=== PATIENT | female | born 1960 | race Caucasian/White ===

== ENCOUNTER 2021-04-05 14:37 | Outpatient (CLI) | payer BC | END 2021-04-05 14:38 | disposition critical access hospital (66) | LOC: EMS 14:37 | DX: R53.1 Weakness (principal); R41.0 Disorientation, unspecified; R17 Unspecified jaundice; W01.0XXA Fall on same level from slipping, tripping and stumbling without subsequent striking against object, initial encounter; Y92.008 Other place in unspecified non-institutional (private) residence as the place of occurrence of the external cause | CPT/HCPCS: A0425; A0427 ==

== ENCOUNTER 2021-04-05 15:12 | Inpatient (IN) | payer BC ==
[2021-04-05] MEDS ORDERED: THIAMINE INJ 100 MG in SODIUM CHLORIDE 0.9% 50 ML IV STA (15:20)
--- NOTE | 2021-04-05 15:22 | ED Physician Documentation ---
PD HPI ABD PAIN - Stated complaint Stated Complaint: GLF - History obtained from History obtained from: Patient, EMS - Additional information Additional information: 61-year-old woman presents by ambulance from home. Reportedly tripped and fell and then was too weak to get herself up and was found by a neighbor. She states she just tripped and did not lose consciousness or get injured. She states that she quit drinking a month and a half ago and was not a heavy drinker, that said EMS confides that there was alcohol "all over the house." Also birds living in the house. There is also feces on the floor, rotting food all over. Patient denies any medical history or history of liver issues although she does appear jaundiced. Review of Systems Ten Systems: 10 systems reviewed and negative Constitutional: denies: Fever, Chills Eyes: reports: Reviewed and negative Ears: reports: Reviewed and negative Nose: reports: Reviewed and negative Throat: reports: Reviewed and negative Cardiac: reports: Reviewed and negative Respiratory: reports: Reviewed and negative PD PAST MEDICAL HISTORY - Allergies Allergies/Adverse Reactions: Allergies Allergy/AdvReac Type Severity Reaction Status Date / Time No Known Drug Allergies Allergy Verified 04/05/21 15:29 PD ED PE NORMAL - Vitals Vital signs reviewed: Yes - General General: Other (Slow to answer questions, does not know the date, poor historian for recent events. Does not smell of alcohol per se.) - HEENT HEENT: PERRL, Other (Jaundiced) - Neck Neck: Supple, no meningeal sign, No bony TTP - Cardiac Cardiac: RRR, No murmur - Respiratory Respiratory: No respiratory distress, Clear bilaterally - Abdomen Abdomen: Other (Nontender but slightly distended with positive fluid wave) - Rectal Rectal: Other (Rectal exam done with Mary RN: Dark stool but not melanotic per se. Sent for guaiac.) - Derm Derm: Normal color, Warm and dry, Other (Bruises basically all over, knees, back, sacrum, abdominal wall) - Extremities Extremities: No deformity, No tenderness to palpate, Normal ROM s pain, Other (1-2+ pitting pedal edema of both extremities, symmetric. Some nontender b ruising over the anterior part of both knees.) Results - Vitals Vitals: Vital Signs - 24 hr 04/05/21 04/05/21 15:22 17:09 Temperature 36.6 C Heart Rate 89 90 Respiratory 14 16 Rate Blood Pressure 91/51 L 95/83 H O2 Saturation 100 100 Oxygen O2 Source Room air - Labs Labs: Microbiology 04/05/21 15:45 Occult Blood - Final Stool Laboratory Tests 04/05/21 04/05/21 04/05/21 15:30 15:30 15:30 WBC 26.5 H RBC 1.95 L Hgb 6.7 L* Hct 19.8 L* MCV 101.5 H MCH 34.4 H MCHC 33.8 RDW 17.1 H Plt Count 134 MPV 10.6 Neut # (Auto) Not Reportable Lymph # (Auto) Not Reportable Pinal # (Auto) Not Reportable Eos # (Auto) Not Reportable Baso # (Auto) Not Reportable Absolute Nucleated RBC Not Reportable Total Counted 100 Band Neuts % (Manual) 2 Abnorm Lymph % (Manual) 0 Nucleated RBC % Not Reportable Neutrophils # (Manual) 21.7 H Lymphocytes # (Manual) 4.0 H Monocytes # (Manual) 0.8 Eosinophils # (Manual) 0.0 Basophils # (Manual) 0.0 Differential Comment MANUAL DIFFERENTIAL WBC Morphology NORMAL APPEARANCE Platelet Estimate NORMAL (130-450,000) Platelet Morphology NORMAL APPEARANCE RBC Morph Micro Appear NORMAL APPEARANCE PT 21.5 H INR 1.9 H Sodium 128 L Potassium 3.1 L Chloride 87 L Carbon Dioxide 28 Anion Gap 13.0 BUN 29 H Creatinine 1.6 H Estimated GFR (MDRD) 33 L Glucose 88 Lactic Acid Calcium 8.9 Magnesium 2.1 Total Bilirubin 11.5 H AST 163 H ALT 44 Alkaline Phosphatase 212 H Ammonia Total Creatine Kinase 156 Total Protein 5.9 L Albumin 2.3 L Globulin 3.6 Albumin/Globulin Ratio 0.6 L Lipase 19 L Ethyl Alcohol < 5.0 Blood Type Blood Type Recheck Antibody Screen Crossmatch IS Only 04/05/21 04/05/21 04/05/21 15:30 15:30 17:01 WBC RBC Hgb Hct MCV MCH MCHC RDW Plt Count MPV Neut # (Auto) Lymph # (Auto) Pinal # (Auto) Eos # (Auto) Baso # (Auto) Absolute Nucleated RBC Total Counted Band Neuts % (Manual) Abnorm Lymph % (Manual) Nucleated RBC % Neutrophils # (Manual) Lymphocytes # (Manual) Monocytes # (Manual) Eosinophils # (Manual) Basophils # (Manual) Differential Comment WBC Morphology Platelet Estimate Platelet Morphology RBC Morph Micro Appear PT INR Sodium Potassium Chloride Carbon Dioxide Anion Gap BUN Creatinine Estimated GFR (MDRD) Glucose Lactic Acid Calcium Magnesium Total Bilirubin AST ALT Alkaline Phosphatase Ammonia 45.2 H Total Creatine Kinase Total Protein Albumin Globulin Albumin/Globulin Ratio Lipase Ethyl Alcohol Blood Type O POSITIVE Blood Type Recheck O POSITIVE Antibody Screen NEGATIVE Crossmatch IS Only See Detail 04/05/21 17:01 WBC RBC Hgb Hct MCV MCH MCHC RDW Plt Count MPV Neut # (Auto) Lymph # (Auto) Pinal # (Auto) Eos # (Auto) Baso # (Auto) Absolute Nucleated RBC Total Counted Band Neuts % (Manual) Abnorm Lymph % (Manual) Nucleated RBC % Neutrophils # (Manual) Lymphocytes # (Manual) Monocytes # (Manual) Eosinophils # (Manual) Basophils # (Manual) Differential Comment WBC Morphology Platelet Estimate Platelet Morphology RBC Morph Micro Appear PT INR Sodium Potassium Chloride Carbon Dioxide Anion Gap BUN Creatinine Estimated GFR (MDRD) Glucose Lactic Acid 1.8 Calcium Magnesium Total Bilirubin AST ALT Alkaline Phosphatase Ammonia Total Creatine Kinase Total Protein Albumin Globulin Albumin/Globulin Ratio Lipase Ethyl Alcohol Blood Type Blood Type Recheck Antibody Screen Crossmatch IS Only - Rads (name of study) CT [facility] Radiology: EMP read contemporaneously (CT of the head, cervical spine, chest abdomen pelvis is notable for degenerative and age-related changes, hiatal hernia with esophageal wall thickening, coronary artery calcification, small right-sided pleural effusion, ascites and body edema, irregular liver and prominent gallbladder) PD MEDICAL DECISION MAKING - ED course ED course: 61-year-old woman presents from home which is reported to be in disastrous shape after having fallen and generally weak and could not get up. She appears ill, she is jaundiced. She is profoundly anemic of unclear acuity. She also has elevated white blood cell counts but no focus of infection seen nor lactic acidosis. She is thankfully and surprisingly guaiac negative. She is modestly encephalopathic here. Presume this is from alcohol noting the dockworker report, but there is no alcohol on board right now. Ammonia is only modestly elevated. Meld score is 31 points giving her an estimated mortality in 3 months of 52.6%. Discriminant factor is 55.2 points suggesting the need for glucocorticoid therapy. And prednisolone is started. Call to the hospitalist for admission at 5:45 PM. - Critical Care Time(min): 40 Time Includes: Direct patient care, Review records, Reassess patient, Document care, Coordinate care, Medical consult Departure - Departure Disposition: 66 [facility] DC/Xfer Clinical Impression: Coagulopathy, Renal insufficiency, Encephalopathy Anemia Qualifiers: Anemia type: unspecified type Qualified Code(s): D64.9 - Anemia, unspecified Cirrhosis Qualifiers: Hepatic cirrhosis type: unspecified hepatic cirrhosis Ascites presence: with ascites Qualified Code(s): K74.60 - Unspecified cirrhosis of liver Fall Qualifiers: Encounter type: initial encounter Qualified Code(s): W19.XXXA - Unspecified fall, initial encounter Abdominal wall contusion Qualifiers: Encounter type: initial encounter Qualified Code(s): S30.1XXA - Contusion of abdominal wall, initial encounter Chest wall contusion Qualifiers: Encounter type: initial encounter Laterality: unspecified laterality Qualified Code(s): S20.219A - Contusion of unspecified front wall of thorax, initial encounter Ascites Qualifiers: Ascites type: due to alcoholic cirrhosis Qualified Code(s): K70.31 - Alcoholic cirrhosis of liver with ascites Condition: Serious
[2021-04-05 15:37] LABS: BASOPHILS % (AUTO) 0.3 %; EOSINOPHILS % (AUTO) 1.1 %; LYMPHOCYTES % (AUTO) 7.5 %; MEAN CORPUSCULAR HEMOGLOBIN 34.4 pg (27.0-31.0); MEAN CORPUSCULAR HGB CONC 33.8 g/dL (32.0-36.0); MEAN CORPUSCULAR VOLUME 101.5 fL (81.0-99.0); MEAN PLATELET VOLUME 10.6 fL (7.9-10.8); MONOCYTES % (AUTO) 6.9 %; NEUTROPHILS % (AUTO) 83.5 %; PLT - PLATELET COUNT 134 10^3/uL (130-450); RED BLOOD COUNT 1.95 10^6/uL (4.20-5.40); RED CELL DISTRIBUTION WIDTH 17.1 % (12.0-15.0); WHITE BLOOD COUNT 26.5 x10^3/uL (4.8-10.8)
[2021-04-05 15:42] LABS: HCT - HEMATOCRIT 19.8 % (37.0-47.0); HGB - HEMOGLOBIN 6.7 g/dL (12.0-16.0); INR 1.9 (0.8-1.2); PT - PROTHROMBIN TIME 21.5 secs (9.9-12.6)
[2021-04-05 15:43] LABS: ABNORMAL LYMPHS % (MANUAL) 0 %
[2021-04-05 15:55] LABS: ALBUMIN 2.3 g/dL (3.2-5.5); ALBUMIN/GLOBULIN RATIO 0.6 (1.0-2.2); ALKALINE PHOSPHATASE 212 IU/L (42-121); ALT ALANINE AMINOTRANSFERASE 44 IU/L (10-60); AST ASPARTATE AMINOTRANSFERASE 163 IU/L (10-42); BILIRUBIN,TOTAL 11.5 mg/dL (0.2-1.0); BUN - BLOOD UREA NITROGEN 29 mg/dL (6-20); CALCIUM 8.9 mg/dL (8.5-10.3); CARBON DIOXIDE - CO2 28 mmol/L (21-32); CHLORIDE 87 mmol/L (101-111); CK- CREATINE KINASE 156 IU/L (22-269); CREATININE 1.6 mg/dL (0.4-1.0); ETOH - ETHANOL < 5.0 mg/dL; GFR - MDRD 33 (>89); GLUCOSE 88 mg/dL (70-100); LIPASE 19 U/L (22-51); MAGNESIUM 2.1 mg/dL (1.7-2.8); POTASSIUM 3.1 mmol/L (3.5-5.0); SODIUM 128 mmol/L (135-145); TOTAL PROTEIN 5.9 g/dL (6.7-8.2)
[2021-04-05] MEDS ORDERED: IOPAMIDOL-300 100 ML VIAL ONE (16:12)
[2021-04-05] MEDS ORDERED: POTASSIUM CHLOR 10 MEQ/100 ML 10 MEQ/100 ML BAG IV STA (16:15)
[2021-04-05 16:24] LABS: BAND NEUTROPHILS % (MANUAL) 2 %; DIFFERENTIAL COMMENT MANUAL DIFFERENTIAL; LYMPHOCYTES % (MANUAL) 15 %; MONOCYTES # (MANUAL) 0.8 10^3/uL (0.0-1.0); NEUTROPHILS # (MANUAL) 21.7 10^3/uL (1.5-6.6); PLATELET ESTIMATE, MANUAL NORMAL (130-450,000) (NORMAL); PLATELET MORPHOLOGY NORMAL APPEARANCE (NORMAL); RBC MORPHOLOGY (MULTIPLE) NORMAL APPEARANCE (NORMAL); WBC MORPHOLOGY (MULTIPLE) NORMAL APPEARANCE (NORMAL)
--- NOTE | 2021-04-05 17:24 | CT Report ---
PROCEDURE: HEAD WO INDICATIONS: poss head inj TECHNIQUE: Noncontrast 4.5 mm thick angled axial sections acquired from the foramen magnum to the vertex. For r adiation dose reduction, the following was used: automated exposure control, adjustment of mA and/or kV according to patient size. COMPARISON: Correlation is made with the accompanying CT examinations, 04/05/2021. FINDINGS: Image quality: There is streak artifact seen through the skull base. CSF spaces: Basal cisterns are patent. No extra-axial fluid collections. Ventricles are normal in size and shape. Brain: No midline shift. No intracranial masses or hemorrhage. Newberry-white matter interface is norm al. Skull and face: Calvarium and visualized facial bones are intact, without suspicious lesions. Hyper ostosis frontalis is incidentally noted, which is not frankly abnormal for a female patient of this a ge. Sinuses: Visualized sinuses and mastoids are clear. IMPRESSION: No significant intracranial abnormality is seen. No intracranial hemorrhage is seen. Reviewed by: Edward Holguin MD on 04/05/2021 4:22 PM CHRIS Approved by: Edward Holguin MD on 04/05/2021 4:22 PM CHRIS Station ID: [id number]
--- NOTE | 2021-04-05 17:26 | CT Report ---
PROCEDURE: CERVICAL SPINE WO INDICATIONS: poss head inj TECHNIQUE: Noncontrast 3 mm thick sections acquired from the skull base to the T4 level. Sagittal and coronal r eformats were then constructed. For radiation dose reduction, the following was used: automated exp osure control, adjustment of mA and/or kV according to patient size. COMPARISON: Correlation is made with the accompanying CT examinations, 04/05/2021. FINDINGS: Image quality: Excellent. Bones: No fractures or dislocations. Visualized superior ribs are intact. There is moderate disc space narrowing seen at C5-C6 and C6-C7, with associated endplate irregularity and sclerosis. Posteriorly directed endplate osteophytes are seen. Partially bridging anterior osteo phytes are seen C5-C7. Soft tissues: Prevertebral soft tissues are normal in thickness. No paravertebral hematomas. No ap ical pneumothoraces. Atherosclerotic calcification is seen. IMPRESSION: Negative for cervical spine fracture. Focal lower cervical spine degenerative changes are seen. Atherosclerotic calcification is seen. Reviewed by: Edward Holguin MD on 04/05/2021 4:25 PM AKRICKY Approved by: Edward Holguin MD on 04/05/2021 4:25 PM AKRICKY Station ID: [id number]
--- NOTE | 2021-04-05 17:31 | CT Report ---
PROCEDURE: Abdomen/Pelvis W INDICATIONS: IV only, elevated liver enzymes CONTRAST: IV CONTRAST: Isovue 300 ml: 80 PO CONTRAST: *NO PO CONTRAST TECHNIQUE: After the administration of IV contrast, 5 mm thick sections acquired from the diaphragms to the symp hysis. A limited dose of 80 cc of contrast was used, secondary to the patient's decreased glomerular filtration rate. 5 mm thick coronal and sagittal reformats were acquired. For radiation dose reducti on, the following was used: automated exposure control, adjustment of mA and/or kV according to magalie ent size. COMPARISON: Correlation is made with the company CT examinations, 04/05/2021. FINDINGS: Image quality: Excellent. ABDOMEN: Lung bases: There is a small right-sided pleural effusion. Overlying mild atelectasis can be seen. He art size is normal. There is a mild to moderate hiatal hernia seen. Solid organs: Patchy low density can be seen within the liver, which is attributed to fatty infiltrat ion. No focal liver lesions are seen. The spleen demonstrates normal size. Gallbladder is prominent i n size, without focal pathology. Biliary system is non dilated. Pancreas enhances normally. No adr enal nodules. Kidneys demonstrate normal size and enhancement, without hydronephrosis. Peritoneum and bowel: Bowel loops demonstrate normal wall thickness and caliber. No free air. A mo derate amount of ascites is seen. Diverticulosis can be seen, without mariama findings of active divert iculitis. Nodes and vessels: No retroperitoneal or mesenteric adenopathy by size criteria. Aorta and inferior vena cava are normal in size. Miscellaneous: A mild umbilical hernia seen, which contains fluid. Generalized body wall edema is see n. PELVIS: Genitourinary: Bladder wall thickness is normal. The uterus demonstrates an unremarkable appearance for age. No adnexal masses are seen. Miscellaneous: No inguinal hernias or adenopathy. Bones: No suspicious bony lesions. No vertebral body compression fractures. Mild levoconvex scolio tic curvature is seen. Degenerative changes are seen throughout, which are worst at L3-L4 and L4-L5. IMPRESSION: Small right-sided pleural effusion. There is moderate ascites. Generalized body wall edema can also be seen. Irregular liver with low-density. Fatty infiltration is suspected, although differential diagnosis fo r this appearance would also include hepatitis. Prominent gallbladder noted. Incidental note is made of: Bphyl-ga-bhyyrvvr hiatal hernia Diverticulosis is seen, yet without findings of active diverticulitis. Levoconvex scoliotic curvature Focal lower lumbar spine degenerative change. Reviewed by: Edward Holguin MD on 04/05/2021 4:30 PM AKDT Approved by: Edward Holguin MD on 04/05/2021 4:30 PM AKDT Station ID: [id number]
--- NOTE | 2021-04-05 17:38 | CT Report ---
PROCEDURE: CHEST W INDICATIONS: Malignancy workup CONTRAST: IV CONTRAST: Isovue 300 ml: 80 PO CONTRAST: *NO PO CONTRAST TECHNIQUE: After the administration of intravenous contrast, images were acquired from the pulmonary apices to t he posterior costophrenic angles. Multiplanar MIP reformats were acquired. For radiation dose reduc tion, the following was used: automated exposure control, adjustment of mA and/or kV according to pa tient size. COMPARISON: Correlation is made with the accompanying CT examinations, 04/15/2021 FINDINGS: Image quality: Excellent. Lungs and pleura: There is a small right-sided pleural effusion. Central and peripheral airways are p atent and normal in caliber. Mediastinum: Heart size is normal. At least moderate coronary calcification. No pericardial effusion . No mediastinal or hilar adenopathy by size criteria. Thoracic aorta and central pulmonary arterie s are normal in size. The distal esophagus appears thickened and irregular. There is a small to mode rate hiatal hernia seen. Fluid is seen within the distal esophagus. Bones and chest wall: No suspicious bony lesions. No vertebral body compression fractures. No axil rohit or supraclavicular adenopathy by size criteria. The thyroid is normal in size and there are no incidental findings.. Abdomen: The liver demonstrates an irregular, low-density appearance. Moderate ascites is seen within the upper abdomen. Generalized prominence of the adrenal glands can be seen, without focal adrenal n odules. The visualized portions of the upper abdominal structures are otherwise within normal limits. IMPRESSION: There is a small right-sided pleural effusion, with overlying atelectasis. There is a small to moderate hiatal hernia seen, with thickening of the distal esophageal wall and fl uid within the esophagus. Although this may space secondary to reflux, please consider esophageal mal ignancy. Low density seen of the liver. Moderate ascites. No mariama masses are detected. No enlarged mediastinal lymph nodes are seen. Incidental note is made of: At least moderate coronary artery calcification Reviewed by: Edward Holguin MD on 04/05/2021 4:36 PM AKDT Approved by: Edward Holguin MD on 04/05/2021 4:36 PM AKDT Station ID: [id number]
[2021-04-05] MEDS ORDERED: PrednisoLONE 15 MG/5 ML SYRUP SYR PO STA (17:46)
[2021-04-05] MEDS ORDERED: LORazepam 2 MG/ML VIAL IVP PRN (18:24)
[2021-04-05 20:57] LABS: B. PARAPERTUSSIS- RESP PCR PAN NOT DETECTED; B. PERTUSSIS- RESP PCR PANEL NOT DETECTED; C. PNEUMONIAE- RESP PCR PANEL NOT DETECTED; CORONAVIRUS 229E-RESP PCR NOT DETECTED; CORONAVIRUS HKU1-RESP PCR NOT DETECTED; CORONAVIRUS NL63-RESP PCR NOT DETECTED; CORONAVIRUS OC43-RESP PCR NOT DETECTED; HUMAN METAPNEUMOVIRUS NOT DETECTED; INFLUENZA A- RESP PCR PANEL NOT DETECTED; INFLUENZA B - RESP PCR PANEL NOT DETECTED; M. PNEUMONIAE- RESP PCR PANEL NOT DETECTED; PARAINFLUENZA VIRUS 1 NOT DETECTED; PARAINFLUENZA VIRUS 2 NOT DETECTED; PARAINFLUENZA VIRUS 3 NOT DETECTED; PARAINFLUENZA VIRUS 4 NOT DETECTED; RHINOVIRUS/ENTEROVIRUS NOT DETECTED; RSV- RESP PCR PANEL NOT DETECTED; SARS-CoV-2 -RESP PCR PANEL NOT DETECTED
[2021-04-05] MEDS ORDERED: IOPAMIDOL-300 100 ML VIAL IVP ONE (21:34)
--- NOTE | 2021-04-05 21:49 | HISTORY & PHYSICAL EXAMINATION ---
Chief Complaint - Chief Complaint Chief Complaint: found down in yard History of Present Illness - Admitted From Admitted From:: home via EMS - History Obtained From Records Reviewed: [facility] History obtained from: patient Exam Limitations: slow speech and thought process - History of Present Illness HPI Comment/Other: 61-year-old female who was brought in by ambulance because she was found down in her driveway by her real estate economist. The patient tells me that she does not have any major medical illnesses. She does not have high blood pressure, diabetes, lung disease or kidney disease. She states that she only drinks 2 drinks a day and stopped drinking about 2 months ago because "she wanted to get healthy". She has no history of alcoholic liver disease, withdrawal, neuropathy, or ataxia. She firmly states that she was in her normal state of health. Feeling good. No antecedent illness. No changes in appetite. She was in her yard but cannot remember why she was there and tripped and fell in the pea gravel. There was no loss of consciousness. She could not get up. When I asked her what prohibited her from getting up she says "I do not know". She lay there until her real estate economist found her. EMS was called. EMS describes the house as full of empty alcohol bottles everywhere. Birds are living in the house and there is bird feces everywhere. There is human feces on the floor. There is rotting food all over the house. The patient states that she is just really preoccupied with work. 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 She used to live in [place] in [place] and left [place] when all of the protestors and homeless became unsafe. She moved to [facility] "a couple of months ago" but recently bought a condo to go back and forth between [facility] and [place]. On review of systems she denies headache, change in vision. Denies cough, chest pain, shortness of breath. Denies edema. Denies changes in habit. Denies bloody emesis, black emesis. She denies change in bowel habits, denies hematoch ezia or bloody stool. She denies any weight changes. She denies urgency, frequency, hematuria. She denies any chronic pain syndrome. Denies arthritis. She has no skin skin lesions that are new. She denies polyuria, polydipsia, polyphagia. She is not depressed, denies suicidal ideation or hallucinations. She has no history of seizures, syncope, memory loss. All of this is a mystery to her and she doesn't understand how this could be happening since "I was healthy without any problems" up until today. In the emergency room temperature was 36.6. Heart rate 89. Blood pressure 91/51. Respirations 14 and 100% on room air. She had psychomotor slowing. Did not know the date. Poor historian. Did not smell of alcohol. Nontender abdomen but distended with positive fluid wave. Rectal exam had dark stool but was not melanotic. Fecal occult blood positive. Bruises over her body and including the knees, back, sacrum, abdominal wall. 2+ pitting edema both extremities. Nontender bruising over the anterior part of both knees. Sodium 128. Potassium 3.1. BUN 29, creatinine 1.6. Total bili 11.5. AST 163. ALT 44. Alk phos 212. INR 1.9. Ammonia 45.2. White cell count 26.5. Hemoglobin 6.7. Platelets 134. History - Past Medical History Cardiovascular: reports: None Respiratory: reports: Pneumonia Neuro: reports: None Endocrine/Autoimmune: reports: None GI: reports: Hepatitis (she doesn't remember at this time), Cirrhosis, Other OPERATING ROOM REGISTERED NURSE: reports: Other () : reports: None HEENT: reports: None Psych: reports: None Musculoskeletal: reports: None Derm: reports: Other MRSA Hx?: No Other Past Medical History: glasses at home - Past Surgical History General: reports: Colonoscopy Ortho: reports: Arthroscopic surgery (of knee) - Family & Social History Family History Comment/Other: Mom is alive at 87 and regarded as healthy. Lives in an assisted living facility in [facility]. Dad age 80 of complications of Parkinson's. She is 1 of 5 children. Her siblings are all healthy as far she knows. No cancer, heart attack, stroke, diabetes, high blood pressure, thyroid disease or alcoholism. No children Living arrangement: At home Living Situation: Alone Social History Notes: Born and raised in [place]. 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 Never . Lives alone. Never smoked. Denies any recreational substance abuse history. Denies alcohol abuse history. States that she only drinks 2 drinks of beer a day at most. Her power of deputy attorney general is her brother Pedro Cooley or a nephew named Silvio Lozoya. She does not want us to contact them and as such would prefer not to give us their contact information. Meds/Allgy - Allergies Allergies/Adverse Reactions: Allergies Allergy/AdvReac Type Severity Reaction Status Date / Time No Known Drug Allergies Allergy Verified 04/05/21 15:29 Review of Systems - All Other Systems All Other Systems: reports: Reviewed and negative (All review of systems done and in history of present illness) Prior Level of Functionality: Drive herself is completely independent without any use of durable medical equipment. Drives a car. She cannot explain why her house is so disheveled. Why there is human and bird feces everywhere. The most she can offer is that she is just been so preoccupied with work she just has been taking care of anything. Exam - Vital Signs Reviewed Vital Signs: Yes Vital Signs: Vital Signs x48h Temp Pulse Pulse Resp BP BP Pulse Ox 04/05/21 20:46 36.3 C L 91 16 87/47 L 99 04/05/21 20:15 36.3 C L 91 16 87/49 L 04/05/21 19:54 36.2 C L 92 18 89/44 L 04/05/21 19:19 36.2 C L 91 19 93/57 L 97 04/05/21 17:09 90 16 95/83 H 100 04/05/21 15:22 36.6 C 89 14 91/51 L 100 - Physical Exam General Appearance: positive: No acute distress, Alert, Other (Slow speaking, and moving 61-year-old female with jaundice, hirsutism, and looks very fatigued) Eyes Bilateral: positive: PERRL, EOMI ENT: positive: Dry mucous membranes (cracked dry lips), Other (hirsute. dried dirt? around nares and on cheeks and lips) Neck: positive: No JVD, Lymphadenopathy (R), Lymphadenopathy (L). negative: Stiff neck Respiratory: positive: No respiratory distress, Other (shallow, slow, unlabored respiration). negative: Wheezes, Rales, Rhonchi Cardiovascular: positive: Regular rate & rhythm. negative: Gallop/S4, Friction rub Peripheral Pulses: positive: 1+ Abdomen: positive: Tenderness (mild over upper quadrants), Abnml bowel sounds (hypoactive), Other (distension and fluid wave). negative: Guarding, Rebound Skin: positive: Warm, Dry, Other (jaundice) Extremities: positive: Full ROM, Pedal edema Neurologic/Psychiatric: positive: Oriented x3, CN's nml (2-12), Sensation nml, Weakness (generalized and unable to sit up on her own, or to stand). negative: Motor nml (psychomotor slowing) Conclusion/Plan - Problem List (1) Encephalopathy Conclusion/Plan: She appears to have hepatic encephalopathy. Moderately elevated ammonia level. She does not have asterixis. Has psychomotor slowing. In her history, all of this is new. Acute. Never been present before. EMS description of her home l greg suggest that she may have problems with alcohol abuse and that there is empty liquor bottles throughout the house. The house is also poorly kept up, with bird feces and human feces. Rotting food. Dirty close. Plan: Inpatient admission Work-up of causes of encephalopathy Adult Protective Services referral. I did share with her that we will make a referral. That it will be up to her, her family, and Adult Protective Services to determine the amount of self neglect, if any (2) Liver failure without hepatic coma Conclusion/Plan: At this time the presumption is that of alcoholic liver disease due to the history provided by EMS. But the patient is firm and stating that she does not have an alcohol problem. As such I explained to her that we will be working up the causes of liver failure and cirrhosis. Advance care planning conversation held. She would like all measures performed such as CPR, intubation, cardioversion if needed. She does not want us to notify power of deputy attorney general at this time. And she will let me know her primary care provider is in the next few minutes when she can find them. Qualifiers: Liver failure chronicity: chronic Qualified Code(s): K72.10 - Chronic hepa tic failure without coma (3) Cirrhosis Conclusion/Plan: She denies alcohol abuse. As such at this time final diagnosis and because still needs to be worked up. I have explained to her that we are seeing significant illness. That she has esophageal varices suggested on CT by distal esophageal thickening. She denies that there is been any hematochezia or dark school or vomiting of blood. Plan Acute hepatitis panel Alpha-fetoprotein, anti-Lane antibodies, anti-Ro antibodies, ceruloplasmin, ferritin, EMPERATRIZ Ultrasound of liver When she is discharged she should follow-up with her primary care provider. Right now she cannot remember the name and I have giving her about 15 minutes for her to get me that name. That primary care provider will need to refer her to hepatology service. Meld score is 31 points. Estimated mortality 52.6% in 3 months. Discriminant factor is 55.2 and she was given steroids and those will be continued. All of this was explained to the patient. Qualifiers: Hepatic cirrhosis type: unspecified hepatic cirrhosis Ascites presence: with ascites Qualified Code(s): K74.60 - Unspecified cirrhosis of liver; R18.8 - Other ascites (4) Anemia Conclusion/Plan: Requiring blood transfusion. Plan: Banana bag Transfused 2 units I have asked her to get an EGD in the outpatient setting.We would be looking for esophageal varices, esophagitis, gastritis, or ulcer disease. Qualifiers: Anemia type: unspecified type Qualified Code(s): D64.9 - Anemia, unspecified (5) Coagulopathy Conclusion/Plan: Due to liver disease. INR is 1.9. Patient is covered in bruises. Platelets appear stable at this time. No need for transfusion of platelets. No need for vitamin K at this time - Lab Results Lab results reviewed: Yes Fish Bones: 04/05/21 15:30 04/05/21 15:30 - Diagnostic Imaging Results Diagnostic Imaging Results: positive: Final report reviewed Diagnostic Imaging Results Comments: 1. Head CT without significant intracranial abnormality, no intracranial hemorrhage. 2. Cervical spine CT negative for fracture, degenerative changes seen, atherosclerotic calcification seen. 3. Abdomen pelvis CT with small right pleural effusion. Mild atelectasis. Heart size normal. Mild to moderate hiatal hernia. Patchy low density seen within the liver attributed to fatty infiltration. No focal liver lesion seen. Spleen normal size. Gallbladder normal. Biliary system nondilated. Pancreas enhancing normally. Kidneys without hydronephrosis. Bowels appear normal with diverticulosis. No retroperitoneal mass or mesenteric adenopathy. Umbilical hernia. 4. Chest CT with moderate coronary calcification. No pericardial effusion. Distal esophagus thick and irregular. Small to moderate hiatal hernia. Fluid within the distal esophagus. No rib fractures. Liver with irregular, low- density appearance, moderate ascites. - EKG Results EKG Interpreted Independently: No Core Measures - Anticipated LOS I expect patient to be DC'd or transferred within 96 hours.: Yes - DVT/VTE - Prophylaxis VTE/DVT Device ordered at admit?: Yes
[2021-04-06 06:46] LABS: MUDS CUTOFF CONCENTRATIONS CUTOFF CONC BELOW:
[2021-04-06 06:58] LABS: AMPHETAMINE SCREEN,URINE NEGATIVE (NEGATIVE); BARBITURATE SCREEN,UR NEGATIVE (NEGATIVE); BENZODIAZEPINES SCREEN, URINE NEGATIVE (NEGATIVE); COCAINE SCREEN URINE NEGATIVE (NEGATIVE); METHADONE SCREEN, URINE NEGATIVE (NEGATIVE); METHAMPHETAMINES SCREEN, URINE NEGATIVE (NEGATIVE); OPIATE SCREEN, URINE NEGATIVE (NEGATIVE); OXYCODONE SCREEN, URINE NEGATIVE (NEGATIVE); PROPOXYPHENE SCREEN, URINE NEGATIVE (NEGATIVE); THC CANNABINOID SCREEN, URINE POSITIVE (NEGATIVE); TRICYCLIC ANTIDEPRESSANT,URINE NEGATIVE (NEGATIVE)
[2021-04-06 07:28] LABS: BASOPHILS # (AUTO) 0.1 10^3/uL (0.0-0.1); BASOPHILS % (AUTO) 0.5 %; EOSINOPHILS # (AUTO) 0.1 10^3/uL (0.0-0.7); EOSINOPHILS % (AUTO) 0.3 %; HCT - HEMATOCRIT 22.7 % (37.0-47.0); HGB - HEMOGLOBIN 7.7 g/dL (12.0-16.0); LYMPHOCYTES # (AUTO) 1.7 10^3/uL (1.5-3.5); LYMPHOCYTES % (AUTO) 7.7 %; MEAN CORPUSCULAR HEMOGLOBIN 32.9 pg (27.0-31.0); MEAN CORPUSCULAR HGB CONC 33.9 g/dL (32.0-36.0); MEAN PLATELET VOLUME 10.6 fL (7.9-10.8); MONOCYTES % (AUTO) 4.4 %; NEUTROPHILS # (AUTO) 19.4 10^3/uL (1.5-6.6); NEUTROPHILS % (AUTO) 86.2 %; PLT - PLATELET COUNT 122 10^3/uL (130-450); RED BLOOD COUNT 2.34 10^6/uL (4.20-5.40); RED CELL DISTRIBUTION WIDTH 18.4 % (12.0-15.0); WHITE BLOOD COUNT 22.5 x10^3/uL (4.8-10.8)
[2021-04-06 07:37] LABS: ALBUMIN 2.1 g/dL (3.2-5.5); ALBUMIN/GLOBULIN RATIO 0.6 (1.0-2.2); BILIRUBIN,TOTAL 12.3 mg/dL (0.2-1.0); CALCIUM 8.5 mg/dL (8.5-10.3); CREATININE 1.7 mg/dL (0.4-1.0); MAGNESIUM 2.1 mg/dL (1.7-2.8); PHOSPHORUS 5.1 mg/dL (2.5-4.6); POTASSIUM 3.4 mmol/L (3.5-5.0); TOTAL PROTEIN 5.4 g/dL (6.7-8.2)
[2021-04-06 07:48] LABS: PLATELET ESTIMATE, MANUAL NORMAL (130-450,000) (NORMAL); PLATELET MORPHOLOGY NORMAL APPEARANCE (NORMAL); SLIDE REVIEW? Indicated
[2021-04-06] MEDS ORDERED: PrednisoLONE 15 MG/5 ML SYRUP SYR PO SCH (08:00)
[2021-04-06] MEDS ORDERED: LACTULOSE 10 GM /15 ML UDC PO SCH (09:00)
[2021-04-06] MEDS ORDERED: MULTIVITAMIN 10 ML, FOLIC ACID INJ 1 MG, THIAMINE INJ 100 MG, MAGNESIUM SULFATE 2 GM in... IV SCH ×5 (09:00)
[2021-04-06] MEDS ORDERED: MULTIVITAMIN 10 ML, THIAMINE INJ 100 MG, FOLIC ACID INJ 1 MG in SODIUM CHLORIDE 0.9% 1,... IV SCH (09:00)
--- NOTE | 2021-04-06 11:19 | Ultrasound Report ---
PROCEDURE: Abdomen Complete INDICATIONS: new cirrhosis TECHNIQUE: Real-time scanning was performed of the abdominal and retroperitoneal organs, with image documentatio n. COMPARISON: CT abdomen pelvis 04/05/2021.. FINDINGS: Liver: Liver is heterogeneous in appearance with nodularity of the hepatic capsule compatible with h istory of cirrhosis. No discrete mass identified sonographically. Gallbladder: The gallbladder demonstrates prominent distention with a lobulated intraluminal filling defect measuring approximately 7.7 x 3.1 x 4.1 cm. This demonstrates no associated internal vasculari ty on color Doppler interrogation. Findings are suggestive of biliary sludge. No shadowing gallstones . There is no bladder wall thickening measuring up to 0.7 cm. Biliary ducts: Intrahepatic bile ducts are non-dilated. Extrahepatic bile duct caliber measures up to 0.7 cm where visualized. Normal is 6-7 mm or less in diameter, or 10 mm or less post-cholecystecto my. Pancreas: Visualized portions of the pancreas are sonographically normal. Spleen: Spleen is normal in size. Kidneys: Right kidney measures 12.3 cm long without hydronephrosis. The left kidney was not well see n due to bowel gas and patient's limited mobility. No definite left hydronephrosis. Aorta: Visualized aorta is normal in caliber at less than 3 cm. The distal aorta is not well seen du e to bowel gas. Iliacs: Proximal common iliac arteries are not well seen. IVC: Intrahepatic inferior vena cava is patent. Miscellaneous: There is moderate ascites within the visualized abdomen. IMPRESSION: 1. Nodular cirrhotic liver redemonstrated without a discrete mass identified sonographically. 2. Moderate ascites within the abdomen. 3. Distention of the gallbladder with gallbladder wall thickening which is nonspecific in the context of ascites and liver disease. Cholecystitis cannot be excluded and correlation is recommended clinic ally. 4. Lobulated filling defect in the gallbladder without associated vascularity likely represents bilia ry sludge. No shadowing gallstones. The differential includes a mass although this is considered less likely in the absence of demonstrated blood flow or apparent enhancement on the prior CT. Reviewed by: Manjinder Oconnor MD on 04/06/2021 11:17 AM PDT Approved by: Manjinder Oconnor MD on 04/06/2021 11:17 AM PDT Station ID: [id number]
--- NOTE | 2021-04-06 12:24 | PROVIDER PROGRESS NOTE ---
Subjective - Prog Note Date Prog Note Date: 04/06/21 Prog Note Time: 12:21 - Subjective Subjective: she thinks she overall feels a bit better since the red blood cells, per RN nervous she'll fall if gets up/ requests bed sahu rather than bathroom No nausea, denies hematochezia, hematemesis, melena, no family autoimmune dz, states she has drank since ~ college "just 2 beers/ day; denies more than 2 Current Medications - Current Medications Current Medications: Active Medications Generic Name Dose Route Start Last Admin Trade Name Freq PRN Reason Stop Dose Admin Multivitamins 10 ml/ Folic 1,015.2 mls @ 100 mls/hr 04/06/21 09:00 04/06/21 19:31 Acid 1 mg/ Thiamine HCl 100 mg IV Infused / Magnesium Sulfate 2 gm/ DAILY BRADLY Infusion Sodium Chloride Sodium Chloride 1,000 mls @ 75 mls/hr 04/06/21 18:25 04/06/21 19:28 Normal Saline 0.9% IV 04/07/21 07:19 75 mls/hr .[id number] BRADLY Administration Lactulose 10 gm 04/06/21 15:00 04/06/21 20:14 Lactulose 10 Gm /15 Ml Udc PO 10 gm TID BRADLY Administration Lorazepam 2 mg 04/05/21 18:24 Lorazepam 2 Mg/Ml Vial IVP Q30M PRN CIWA >8 Protocol Midodrine 5 mg 04/06/21 15:00 04/06/21 14:54 Midodrine 2.5 Mg Tablet PO 5 mg TIDWM BRADLY Administration Prednisolone 40 mg 04/06/21 08:00 04/06/21 09:37 Prednisolone 15 Mg/5 Ml Syrup Syr PO 40 mg DAILYWM BRADLY Administration Rifaximin 550 mg 04/06/21 21:00 04/06/21 20:14 Rifaximin 550 Mg Tablet PO 550 mg BID BRADLY Administration Thiamine HCl 100 mg 04/07/21 09:00 Thiamine 100 Mg Tablet PO DAILY BRADLY Objective - Vital Signs/Intake & Output Reviewed Vital Signs: Yes Vital Signs: Vital Signs x48h Temp Pulse Resp BP Pulse Ox 04/06/21 08:11 36.5 C 88 16 88/46 L 94 04/06/21 05:20 36.5 C 91 14 97/56 L 96 Intake & Output: Intake & Output 04/03/21 04/04/21 04/05/21 04/06/21 23:59 23:59 23:59 23:59 Intake Total 551 319 Output Total 50 Balance 551 269 - Objective General Appearance: positive: No acute distress, Alert, Other (Very jaundiced woman pleasant, cooperative, answering appropriatel but deliberately/slowly) Eyes Bilateral: positive: PERRL, EOMI, Other (icteric sclera) ENT: positive: Other (oral membranes do not appear especially dry) Respiratory: positive: No respiratory distress. negative: Breath sounds nml (clear but reduced BS in bases,) Cardiovascular: positive: Regular rate & rhythm, No murmur Abdomen: positive: Nml bowel sounds, No distention, Other (obese vs ascitic abdomen, not taut, no caput medusae, soft + BS, very slight umbilical hernia, liver edge under rib cage, sl nodular edge). negative: Tenderness Skin: positive: Warm, Dry, Other (marked icterus) Neurologic/Psychiatric: positive: Oriented x3, Other (flat affet, does not strike me as evasive in responses) - Lab Results Fish Bones: 04/06/21 14:46 04/06/21 14:46 Other Labs: Lab Results x24hrs 04/06/21 04/06/21 04/06/21 Range/Units 07:13 07:13 07:13 WBC 22.5 H (4.8-10.8) x10^3/uL RBC 2.34 L (4.20-5.40) 10^6/uL Hgb 7.7 L (12.0-16.0) g/dL Hct 22.7 L (37.0-47.0) % MCV 97.0 (81.0-99.0) fL MCH 32.9 H (27.0-31.0) pg MCHC 33.9 (32.0-36.0) g/dL RDW 18.4 H (12.0-15.0) % Plt Count 122 L (130-450) 10^3/uL MPV 10.6 (7.9-10.8) fL Neut # (Auto) 19.4 H Lymph # (Auto) 1.7 Tyrrell # (Auto) 1.0 Eos # (Auto) 0.1 Baso # (Auto) 0.1 Absolute Nucleated RBC 0.00 Total Counted Band Neuts % (Manual) (0 - 10) % Abnorm Lymph % (Manual) % Nucleated RBC % 0.0 Neutrophils # (Manual) (1.5-6.6) 10^3/uL Lymphocytes # (Manual) (1.5-3.5) 10^3/uL Monocytes # (Manual) (0.0-1.0) 10^3/uL Eosinophils # (Manual) (0-0.7) 10^3/uL Basophils # (Manual) (0-0.1) 10^3/uL Differential Comment Manual Slide Review Indicated WBC Morphology (NORMAL) Platelet Estimate NORMAL (130-450,000) (NORMAL) Platelet Morphology NORMAL APPEARANCE (NORMAL) RBC Morph Micro Appear 1+ TARGET CELLS (NORMAL) PT (9.9-12.6) secs INR (0.8-1.2) Sodium 125 L (135-145) mmol/L Potassium 3.4 L (3.5-5.0) mmol/L Chloride 84 L (101-111) mmol/L Carbon Dioxide 28 (21-32) mmol/L Anion Gap 13.0 (6-13) BUN 39 H (6-20) mg/dL Creatinine 1.7 H (0.4-1.0) mg/dL Estimated GFR (MDRD) 31 L (>89) Glucose 106 H (70-100) mg/dL Lactic Acid (0.5-2.2) mmol/L Calcium 8.5 (8.5-10.3) mg/dL Phosphorus 5.1 H (2.5-4.6) mg/dL Magnesium 2.1 (1.7-2.8) mg/dL Ferritin 124.9 (11.0-306.8) ng/mL Total Bilirubin 12.3 H (0.2-1.0) mg/dL AST 143 H (10-42) IU/L ALT 44 (10-60) IU/L Alkaline Phosphatase 199 H (42-121) IU/L Ammonia (7-35) umol/L Total Creatine Kinase (22-269) IU/L Total Protein 5.4 L (6.7-8.2) g/dL Albumin 2.1 L (3.2-5.5) g/dL Globulin 3.3 (2.1-4.2) g/dL Albumin/Globulin Ratio 0.6 L (1.0-2.2) Lipase (22-51) U/L Nasal Adenovirus (PCR) Nasal B. parapertussis DNA (PCR) Nasal Coronavir 229E PCR Nasal Coronavir HKU1 PCR Nasal Coronavir NL63 PCR Nasal Coronavir OC43 PCR Nasal Enterovir/Rhinovir PCR Nasal Influenza B PCR Nasal Influenza A PCR Nasal Parainfluen 1 PCR Nasal Parainfluen 2 PCR Nasal Parainfluen 3 PCR Nasal Parainfluen 4 PCR Nasal RSV (PCR) Nasal B.pertussis DNA PCR Nasal C.pneumoniae (PCR) Morgan Human Metapneumo PCR Nasal M.pneumoniae (PCR) Nasal SARS-CoV-2 (PCR) Urine Opiates Screen (NEGATIVE) Ur Oxycodone Screen (NEGATIVE) Urine Methadone Screen (NEGATIVE) Ur Propoxyphene Screen (NEGATIVE) Ur Barbiturates Screen (NEGATIVE) Ur Tricyclics Screen (NEGATIVE) Ur Phencyclidine Scrn (NEGATIVE) Ur Amphetamine Screen (NEGATIVE) U Methamphetamines Scrn (NEGATIVE) U Benzodiazepines Scrn (NEGATIVE) Urine Cocaine Screen (NEGATIVE) U Cannabinoids Screen (NEGATIVE) Ethyl Alcohol mg/dL Blood Type Blood Type Recheck Antibody Screen Crossmatch IS Only 04/06/21 04/05/21 04/05/21 Range/Units 06:40 18:26 17:01 WBC (4.8-10.8) x10^3/uL RBC (4.20-5.40) 10^6/uL Hgb (12.0-16.0) g/dL Hct (37.0-47.0) % MCV (81.0-99.0) fL MCH (27.0-31.0) pg MCHC (32.0-36.0) g/dL RDW (12.0-15.0) % Plt Count (130-450) 10^3/uL MPV (7.9-10.8) fL Neut # (Auto) Lymph # (Auto) Tyrrell # (Auto) Eos # (Auto) Baso # (Auto) Absolute Nucleated RBC Total Counted Band Neuts % (Manual) (0 - 10) % Abnorm Lymph % (Manual) % Nucleated RBC % Neutrophils # (Manual) (1.5-6.6) 10^3/uL Lymphocytes # (Manual) (1.5-3.5) 10^3/uL Monocytes # (Manual) (0.0-1.0) 10^3/uL Eosinophils # (Manual) (0-0.7) 10^3/uL Basophils # (Manual) (0-0.1) 10^3/uL Differential Comment Manual Slide Review WBC Morphology (NORMAL) Platelet Estimate (NORMAL) Platelet Morphology (NORMAL) RBC Morph Micro Appear (NORMAL) PT (9.9-12.6) secs INR (0.8-1.2) Sodium (135-145) mmol/L Potassium (3.5-5.0) mmol/L Chloride (101-111) mmol/L Carbon Dioxide (21-32) mmol/L Anion Gap (6-13) BUN (6-20) mg/dL Creatinine (0.4-1.0) mg/dL Estimated GFR (MDRD) (>89) Glucose (70-100) mg/dL Lactic Acid 1.8 (0.5-2.2) mmol/L Calcium (8.5-10.3) mg/dL Phosphorus (2.5-4.6) mg/dL Magnesium (1.7-2.8) mg/dL Ferritin (11.0-306.8) ng/mL Total Bilirubin (0.2-1.0) mg/dL AST (10-42) IU/L ALT (10-60) IU/L Alkaline Phosphatase (42-121) IU/L Ammonia (7-35) umol/L Total Creatine Kinase (22-269) IU/L Total Protein (6.7-8.2) g/dL Albumin (3.2-5.5) g/dL Globulin (2.1-4.2) g/dL Albumin/Globulin Ratio (1.0-2.2) Lipase (22-51) U/L Nasal Adenovirus (PCR) NOT DETECTED Nasal B. parapertussis DNA (PCR) NOT DETECTED Nasal Coronavir 229E PCR NOT DETECTED Nasal Coronavir HKU1 PCR NOT DETECTED Nasal Coronavir NL63 PCR NOT DETECTED Nasal Coronavir OC43 PCR NOT DETECTED Nasal Enterovir/Rhinovir PCR NOT DETECTED Nasal Influenza B PCR NOT DETECTED Nasal Influenza A PCR NOT DETECTED Nasal Parainfluen 1 PCR NOT DETECTED Nasal Parainfluen 2 PCR NOT DETECTED Nasal Parainfluen 3 PCR NOT DETECTED Nasal Parainfluen 4 PCR NOT DETECTED Nasal RSV (PCR) NOT DETECTED Nasal B.pertussis DNA PCR NOT DETECTED Nasal C.pneumoniae (PCR) NOT DETECTED Morgan Human Metapneumo PCR NOT DETECTED Nasal M.pneumoniae (PCR) NOT DETECTED Nasal SARS-CoV-2 (PCR) NOT DETECTED Urine Opiates Screen NEGATIVE (NEGATIVE) Ur Oxycodone Screen NEGATIVE (NEGATIVE) Urine Methadone Screen NEGATIVE (NEGATIVE) Ur Propoxyphene Screen NEGATIVE (NEGATIVE) Ur Barbiturates Screen NEGATIVE (NEGATIVE) Ur Tricyclics Screen NEGATIVE (NEGATIVE) Ur Phencyclidine Scrn NEGATIVE (NEGATIVE) Ur Amphetamine Screen NEGATIVE (NEGATIVE) U Methamphetamines Scrn NEGATIVE (NEGATIVE) U Benzodiazepines Scrn NEGATIVE (NEGATIVE) Urine Cocaine Screen NEGATIVE (NEGATIVE) U Cannabinoids Screen POSITIVE H (NEGATIVE) Ethyl Alcohol mg/dL Blood Type Blood Type Recheck Antibody Screen Crossmatch IS Only 04/05/21 04/05/21 04/05/21 Range/Units 17:01 15:30 15:30 WBC (4.8-10.8) x10^3/uL RBC (4.20-5.40) 10^6/uL Hgb (12.0-16.0) g/dL Hct (37.0-47.0) % MCV (81.0-99.0) fL MCH (27.0-31.0) pg MCHC (32.0-36.0) g/dL RDW (12.0-15.0) % Plt Count (130-450) 10^3/uL MPV (7.9-10.8) fL Neut # (Auto) Lymph # (Auto) Tyrrell # (Auto) Eos # (Auto) Baso # (Auto) Absolute Nucleated RBC Total Counted Band Neuts % (Manual) (0 - 10) % Abnorm Lymph % (Manual) % Nucleated RBC % Neutrophils # (Manual) (1.5-6.6) 10^3/uL Lymphocytes # (Manual) (1.5-3.5) 10^3/uL Monocytes # (Manual) (0.0-1.0) 10^3/uL Eosinophils # (Manual) (0-0.7) 10^3/uL Basophils # (Manual) (0-0.1) 10^3/uL Differential Comment Manual Slide Review WBC Morphology (NORMAL) Platelet Estimate (NORMAL) Platelet Morphology (NORMAL) RBC Morph Micro Appear (NORMAL) PT (9.9-12.6) secs INR (0.8-1.2) Sodium (135-145) mmol/L Potassium (3.5-5.0) mmol/L Chloride (101-111) mmol/L Carbon Dioxide (21-32) mmol/L Anion Gap (6-13) BUN (6-20) mg/dL Creatinine (0.4-1.0) mg/dL Estimated GFR (MDRD) (>89) Glucose (70-100) mg/dL Lactic Acid (0.5-2.2) mmol/L Calcium (8.5-10.3) mg/dL Phosphorus (2.5-4.6) mg/dL Magnesium (1.7-2.8) mg/dL Ferritin (11.0-306.8) ng/mL Total Bilirubin (0.2-1.0) mg/dL AST (10-42) IU/L ALT (10-60) IU/L Alkaline Phosphatase (42-121) IU/L Ammonia 45.2 H (7-35) umol/L Total Creatine Kinase (22-269) IU/L Total Protein (6.7-8.2) g/dL Albumin (3.2-5.5) g/dL Globulin (2.1-4.2) g/dL Albumin/Globulin Ratio (1.0-2.2) Lipase (22-51) U/L Nasal Adenovirus (PCR) Nasal B. parapertussis DNA (PCR) Nasal Coronavir 229E PCR Nasal Coronavir HKU1 PCR Nasal Coronavir NL63 PCR Nasal Coronavir OC43 PCR Nasal Enterovir/Rhinovir PCR Nasal Influenza B PCR Nasal Influenza A PCR Nasal Parainfluen 1 PCR Nasal Parainfluen 2 PCR Nasal Parainfluen 3 PCR Nasal Parainfluen 4 PCR Nasal RSV (PCR) Nasal B.pertussis DNA PCR Nasal C.pneumoniae (PCR) Morgan Human Metapneumo PCR Nasal M.pneumoniae (PCR) Nasal SARS-CoV-2 (PCR) Urine Opiates Screen (NEGATIVE) Ur Oxycodone Screen (NEGATIVE) Urine Methadone Screen (NEGATIVE) Ur Propoxyphene Screen (NEGATIVE) Ur Barbiturates Screen (NEGATIVE) Ur Tricyclics Screen (NEGATIVE) Ur Phencyclidine Scrn (NEGATIVE) Ur Amphetamine Screen (NEGATIVE) U Methamphetamines Scrn (NEGATIVE) U Benzodiazepines Scrn (NEGATIVE) Urine Cocaine Screen (NEGATIVE) U Cannabinoids Screen (NEGATIVE) Ethyl Alcohol mg/dL Blood Type O POSITIVE Blood Type Recheck O POSITIVE Antibody Screen NEGATIVE Crossmatch IS Only See Detail 04/05/21 04/05/21 04/05/21 Range/Units 15:30 15:30 15:30 WBC 26.5 H (4.8-10.8) x10^3/uL RBC 1.95 L (4.20-5.40) 10^6/uL Hgb 6.7 L* (12.0-16.0) g/dL Hct 19.8 L* (37.0-47.0) % MCV 101.5 H (81.0-99.0) fL MCH 34.4 H (27.0-31.0) pg MCHC 33.8 (32.0-36.0) g/dL RDW 17.1 H (12.0-15.0) % Plt Count 134 (130-450) 10^3/uL MPV 10.6 (7.9-10.8) fL Neut # (Auto) Not Reportable Lymph # (Auto) Not Reportable Tyrrell # (Auto) Not Reportable Eos # (Auto) Not Reportable Baso # (Auto) Not Reportable Absolute Nucleated RBC Not Reportable Total Counted 100 Band Neuts % (Manual) 2 (0 - 10) % Abnorm Lymph % (Manual) 0 % Nucleated RBC % Not Reportable Neutrophils # (Manual) 21.7 H (1.5-6.6) 10^3/uL Lymphocytes # (Manual) 4.0 H (1.5-3.5) 10^3/uL Monocytes # (Manual) 0.8 (0.0-1.0) 10^3/uL Eosinophils # (Manual) 0.0 (0-0.7) 10^3/uL Basophils # (Manual) 0.0 (0-0.1) 10^3/uL Differential Comment MANUAL DIFFERENTIAL Manual Slide Review WBC Morphology NORMAL APPEARANCE (NORMAL) Platelet Estimate NORMAL (130-450,000) (NORMAL) Platelet Morphology NORMAL APPEARANCE (NORMAL) RBC Morph Micro Appear NORMAL APPEARANCE (NORMAL) PT 21.5 H (9.9-12.6) secs INR 1.9 H (0.8-1.2) Sodium 128 L (135-145) mmol/L Potassium 3.1 L (3.5-5.0) mmol/L Chloride 87 L (101-111) mmol/L Carbon Dioxide 28 (21-32) mmol/L Anion Gap 13.0 (6-13) BUN 29 H (6-20) mg/dL Creatinine 1.6 H (0.4-1.0) mg/dL Estimated GFR (MDRD) 33 L (>89) Glucose 88 (70-100) mg/dL Lactic Acid (0.5-2.2) mmol/L Calcium 8.9 (8.5-10.3) mg/dL Phosphorus (2.5-4.6) mg/dL Magnesium 2.1 (1.7-2.8) mg/dL Ferritin (11.0-306.8) ng/mL Total Bilirubin 11.5 H (0.2-1.0) mg/dL AST 163 H (10-42) IU/L ALT 44 (10-60) IU/L Alkaline Phosphatase 212 H (42-121) IU/L Ammonia (7-35) umol/L Total Creatine Kinase 156 (22-269) IU/L Total Protein 5.9 L (6.7-8.2) g/dL Albumin 2.3 L (3.2-5.5) g/dL Globulin 3.6 (2.1-4.2) g/dL Albumin/Globulin Ratio 0.6 L (1.0-2.2) Lipase 19 L (22-51) U/L Nasal Adenovirus (PCR) Nasal B. parapertussis DNA (PCR) Nasal Coronavir 229E PCR Nasal Coronavir HKU1 PCR Nasal Coronavir NL63 PCR Nasal Coronavir OC43 PCR Nasal Enterovir/Rhinovir PCR Nasal Influenza B PCR Nasal Influenza A PCR Nasal Parainfluen 1 PCR Nasal Parainfluen 2 PCR Nasal Parainfluen 3 PCR Nasal Parainfluen 4 PCR Nasal RSV (PCR) Nasal B.pertussis DNA PCR Nasal C.pneumoniae (PCR) Morgan Human Metapneumo PCR Nasal M.pneumoniae (PCR) Nasal SARS-CoV-2 (PCR) Urine Opiates Screen (NEGATIVE) Ur Oxycodone Screen (NEGATIVE) Urine Methadone Screen (NEGATIVE) Ur Propoxyphene Screen (NEGATIVE) Ur Barbiturates Screen (NEGATIVE) Ur Tricyclics Screen (NEGATIVE) Ur Phencyclidine Scrn (NEGATIVE) Ur Amphetamine Screen (NEGATIVE) U Methamphetamines Scrn (NEGATIVE) U Benzodiazepines Scrn (NEGATIVE) Urine Cocaine Screen (NEGATIVE) U Cannabinoids Screen (NEGATIVE) Ethyl Alcohol < 5.0 mg/dL Blood Type Blood Type Recheck Antibody Screen Crossmatch IS Only - Diagnostic Imaging Diagnostic Imaging Results: positive: Final report reviewed Diagnostic Imaging Comments: Abdominal Ultrasound: Gallbladder prominent distention w/ lobulated intraluminal filling defet 7.7 x 3.1 x 4.1; suspicious of biliary sludge. GBW thickening up to 0.7cm No IHDD + EHDD. Extrahepatic bile duct caliber up to 0.7 cm. Normal 6-7 mgg or less or 10 mm post choley. Moderate ascietes Nodular cirrhotic liver without discrete mass Moderate ascites Distention of gallbladder w/ gallbladder wall thickening; no specific in context of ascites and liver disease. Cant r/o cholecystitis/ clinical correlation recommended li Assessment/Plan - Problem List (1) Cirrhosis Impression: Likely related to Alcohol -AST//ALT > 2:1, and GGT elevated ( and bottles found at home though she denies ETOH) -progressing towards decompensation w/ encephalopathy NH3 41, INR 1.9 (though poor po could contribute),? varices if lower esophageal thickening on CT is varices and marked jaundice TB 12 - Meld score is 31 points. Estimated mortality 52.6% in 3 months. - Discriminant factor is 55.2 and she was given steroids and those will be continued. Work up for other possible causes as below Needs EGD as outpatient Ideally should have paracentesis/ SAAG (urgent if fever); Do not suspect SBP at this time Cirrhosis w/u ordered thus far -Acute hepatitis panel -Alpha-fetoprotein, anti-Lane antibodies, anti-Ro antibodies, ceruloplasmin, EMPERATRIZ all pending. Alpha1 antitryp not available ferritin (not elevated), -Abdominal Ultrasound 04/06: Gallbladder prominent distention w/ lobulated intraluminal filling defet 7.7 x 3.1 x 4.1; suspicious of biliary sludge. GBW thickening up to 0.7cm No IHDD + EHDD. Extrahepatic bile duct caliber up to 0.7 cm. Normal 6-7 mgg or less or 10 mm post choley. Moderate ascites Nodular cirrhotic liver without discrete mass Distention of gallbladder w/ gallbladder wall thickening; no specific in context of ascites and liver disease. 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 Lactulose and Rifaximin started for encephalopathy Prednisolone started in ED midodrine started; not clear hypotension is volume depletion vs r/t advanced cirrhosis; reeval after cont'd IVF albumin not considered today; reeval ascites after volume repletion if RuN/CR and hypotension and hyponatremia reflect volume depleton #) Leukocytosis; no fever, no findings suggestive of infection. No marked ascites, do not suspect SBP U/a neg Consider paracentesis if fever POssibly this is extreme hemoconcenration but doubt given the low H/H recheck in AM (#) Anemia Denies blood loss/ no stigmata of blood loss 2 u PrBC's today H/H 6.7/19.8>> 8.0/23.5 ; recheck in AM considered hemolysis given significant proportion of bili is indirect , so far no + lab studies for hemolysis haptoglobin still pending recheck CBC in am # Alcohol use neg BAL on presentation (but AST/ALT 2:1 s/p Banana bag MVI started and thiamine Check if SW intiating APS re: status of home/ self care, Patient would not name POA (see H/P) (#) Coagulopathy Conclusion/Plan: Due to liver disease. INR is 1.9. Platelets stable No need for vitamin K at this time #Hyponatremia not clear if related to hypovolemia vs r/t cirrhosis/ hepatorenal failure urine sodium pending, urine osmo not available here given hypotension, evaluating w/ continued volume expansion w/ IVF reeval in am Qualifiers: Hepatic cirrhosis type: unspecified hepatic cirrhosis Ascites presence: with ascites Qualified Code(s): K74.60 - Unspecified cirrhosis of liver; R18.8 - Other ascites (2) Full code status Impression: Patient would want CPR/ intubation rescitative measures in event of cardiopulm arrest (3) Acute kidney injury Impression: likkely prerenal in setting of marked anemia and hypotension initial concern for hemolysis not confirmed at this point, has gotten 2 u RBC and continuing IVF, and started midodrine (if the hypotension is "just " volume depletion, consider d/c midodrine if marked improvement in JULIO CESAR w/ volume resuscitation recheck in am
[2021-04-06] MEDS: LACTULOSE 10 GM /15 ML UDC PO SCH ×2 (14:30→20:14)
[2021-04-06] MEDS: MIDODRINE 2.5 MG TABLET PO SCH (14:54)
[2021-04-06 14:58] LABS: BASOPHILS % (AUTO) 0.4 %; EOSINOPHILS % (AUTO) 0.5 %; HCT - HEMATOCRIT 23.5 % (37.0-47.0); LYMPHOCYTES % (AUTO) 8.9 %; MEAN CORPUSCULAR HEMOGLOBIN 33.2 pg (27.0-31.0); MEAN CORPUSCULAR VOLUME 97.5 fL (81.0-99.0); MEAN PLATELET VOLUME 10.6 fL (7.9-10.8); MONOCYTES % (AUTO) 4.5 %; NEUTROPHILS % (AUTO) 84.6 %; PLT - PLATELET COUNT 132 10^3/uL (130-450); RED BLOOD COUNT 2.41 10^6/uL (4.20-5.40); RED CELL DISTRIBUTION WIDTH 18.9 % (12.0-15.0); WHITE BLOOD COUNT 22.5 x10^3/uL (4.8-10.8)
[2021-04-06 15:06] LABS: CALCIUM 8.3 mg/dL (8.5-10.3); CREATININE 1.8 mg/dL (0.4-1.0); POTASSIUM 3.5 mmol/L (3.5-5.0)
[2021-04-06 15:10] LABS: ABSOLUTE RETICS # AUTO 0.063 10^6/uL (0.020-0.110); RED BLOOD COUNT 2.38 10^6/uL (4.20-5.40); RETICULOCYTE COUNT % (AUTO) 2.64 % (0.5-2.3)
[2021-04-06 15:37] LABS: ABNORMAL LYMPHS % (MANUAL) 0 %; BAND NEUTROPHILS % (MANUAL) 0 %
[2021-04-06 15:45] LABS: LYMPHOCYTES # (MANUAL) 1.4 10^3/uL (1.5-3.5); LYMPHOCYTES % (MANUAL) 6 %; MONOCYTES # (MANUAL) 0.7 10^3/uL (0.0-1.0); NEUTROPHILS # (MANUAL) 20.5 10^3/uL (1.5-6.6)
[2021-04-06 15:46] LABS: DIFFERENTIAL COMMENT MANUAL DIFFERENTIAL; PLATELET ESTIMATE, MANUAL NORMAL (130-450,000) (NORMAL); PLATELET MORPHOLOGY NORMAL APPEARANCE (NORMAL)
[2021-04-06 16:10] LABS: GLUCOSE, URINE (UA) NEGATIVE (NEGATIVE); LEUKOCYTE ESTERASE, URINE NEGATIVE (NEGATIVE); OCCULT BLOOD,URINE TRACE-INTA (NEGATIVE); PROTEIN,URINE NEGATIVE (NEGATIVE)
[2021-04-06 16:14] LABS: CLARITY,URINE CLEAR (CLEAR)
[2021-04-06 16:15] LABS: BILIRUBIN,URINE LARGE (NEGATIVE); ICTOTEST,URINE POSITIVE
[2021-04-06 16:31] LABS: BACTERIA,URINE Moderate /HPF (None Seen); RBC,URINE 0-5 /HPF (0-5); SQUAMOUS EPITHELIAL CELL,UR MANY Squamous (<= Few); WBC,URINE 0-3 /HPF (0-5)
[2021-04-06] MEDS ORDERED: SODIUM CHLORIDE 0.9% 1,000 ML IV SCH ×2 (18:00→18:25)
[2021-04-06] MEDS: rifAXIMin 550 MG TABLET PO SCH (20:14)
[2021-04-07] MEDS: LACTULOSE 10 GM /15 ML UDC PO SCH ×3 (06:55→21:50)
[2021-04-07 07:28] LABS: BASOPHILS # (AUTO) 0.1 10^3/uL (0.0-0.1); BASOPHILS % (AUTO) 0.3 %; HCT - HEMATOCRIT 24.3 % (37.0-47.0); HGB - HEMOGLOBIN 7.9 g/dL (12.0-16.0); LYMPHOCYTES # (AUTO) 1.9 10^3/uL (1.5-3.5); LYMPHOCYTES % (AUTO) 9.6 %; MEAN CORPUSCULAR HEMOGLOBIN 32.5 pg (27.0-31.0); MEAN CORPUSCULAR HGB CONC 32.5 g/dL (32.0-36.0); MEAN PLATELET VOLUME 10.6 fL (7.9-10.8); MONOCYTES # (AUTO) 1.4 10^3/uL (0.0-1.0); MONOCYTES % (AUTO) 7.1 %; NEUTROPHILS # (AUTO) 16.4 10^3/uL (1.5-6.6); NEUTROPHILS % (AUTO) 81.6 %; PLT - PLATELET COUNT 141 10^3/uL (130-450); RED BLOOD COUNT 2.43 10^6/uL (4.20-5.40); RED CELL DISTRIBUTION WIDTH 19.6 % (12.0-15.0); WHITE BLOOD COUNT 20.1 x10^3/uL (4.8-10.8)
[2021-04-07 07:55] LABS: ALBUMIN 2.1 g/dL (3.2-5.5); ALBUMIN/GLOBULIN RATIO 0.6 (1.0-2.2); BILIRUBIN,TOTAL 10.3 mg/dL (0.2-1.0); CALCIUM 8.4 mg/dL (8.5-10.3); CREATININE 1.7 mg/dL (0.4-1.0); POTASSIUM 3.1 mmol/L (3.5-5.0); TOTAL PROTEIN 5.6 g/dL (6.7-8.2)
[2021-04-07 07:56] LABS: % IRON SATURATION 46 % (20-50); IRON 76 ug/dL (28-170); TOTAL IRON BINDING CAPACITY 164 ug/dL (250-450); TRANSFERRIN 117 mg/dL (192-382)
[2021-04-07] MEDS ORDERED: PRENATAL VITAMIN TABLET PO SCH (08:00)
[2021-04-07 08:16] LABS: PLATELET ESTIMATE, MANUAL NORMAL (130-450,000) (NORMAL)
[2021-04-07 08:19] LABS: PLATELET MORPHOLOGY NORMAL APP (NORMAL)
[2021-04-07 08:20] LABS: DIFFERENTIAL COMMENT Y; WBC MORPHOLOGY (MULTIPLE) NORMAL APPEARANCE (NORMAL)
[2021-04-07] MEDS: POTASSIUM CHLOR 10 MEQ/100 ML 10 MEQ/100 ML BAG IV SCH ×4 (08:52→12:04)
[2021-04-07] MEDS: rifAXIMin 550 MG TABLET PO SCH ×2 (08:52→21:49)
[2021-04-07] MEDS: MIDODRINE 2.5 MG TABLET PO SCH ×3 (08:52→13:50)
[2021-04-07] MEDS ORDERED: THIAMINE 100 MG TABLET PO SCH (09:00)
[2021-04-07] MEDS ORDERED: VANCOMYCIN INJ 2 GM in SODIUM CHLORIDE 0.9% 500 ML IV ONE (10:00)
[2021-04-07 11:26] LABS: HEPATITIS A IGM NON-REACTIVE (NON-REACTIVE); HEPATITIS B CORE ANTIBODY IGM NON-REACTIVE (NON-REACTIVE); HEPATITIS B SURFACE ANTIGEN NON-REACTIVE (NON-REACTIVE); HEPATITIS C ANTIBODY NON-REACTIVE (NON-REACTIVE)
--- NOTE | 2021-04-07 12:39 | PROVIDER PROGRESS NOTE ---
Assessment/Plan - Problem List (1) Cirrhosis Qualifiers: Hepatic cirrhosis type: unspecified hepatic cirrhosis Ascites presence: with ascites Qualified Code(s): K74.60 - Unspecified cirrhosis of liver; R18.8 - Other ascites Assessment/Plan: Most likely related to Alcohol. -AST 129/ALT 44 > 2:1, and GGT is elevated 63.( and bottles found at home though she denies ETOH) -progressing towards decompensation w/ encephalopathy NH3 41, INR 1.9 (though poor po could contribute),? varices if lower esophageal thickening on CT is varices - Meld score is 31 points. Estimated mortality 52.6% in 3 months. - Discriminant factor is 55.2 and she was given steroids and those will be continued. Work up for other possible causes as below Needs EGD as outpatient Ideally should have paracentesis/ SAAG (urgent if fever); Do not suspect SBP at this time Cirrhosis w/u ordered thus far - Acute hepatitis panel- is pending - Alpha-fetoprotein, anti-Lane antibodies, anti-Ro antibodies, ceruloplasmin, EMPERATRIZ are pending. - Alpha1 antitryp not available - Ferritin 76 (not elevated), - Abdominal Ultrasound 04/06: Gallbladder prominent distention w/ lobulated intraluminal filling defet 7.7 x 3.1 x 4.1; suspicious of biliary sludge. GBW thickening up to 0.7cm No IHDD + EHDD. Extrahepatic bile duct caliber up to 0.7 cm. Normal 6-7 mgg or less or 10 mm post choley. Moderate ascites Nodular cirrhotic liver without discrete mass Distention of gallbladder w/ gallbladder wall thickening; no specific in context of ascites and liver disease. 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 Lactulose and Rifaximin started for encephalopathy Prednisolone started in ED mad need to change to IV due to new onset N/V. Midodrine started for hypotension most likely due to advanced cirrhosis. (2) Gram-positive bacteremia Assessment/Plan: WBC elevated on admission to 26.5. Today WBC improved to 20.1. Blood culture (+) for gram positive cocci in clusters. Pt. is afebrile. Plan: Add Vancomyacin for bacteremia. Adjust antibiotic therapy as needed when results are finalized. (3) Anemia Qualifiers: Anemia type: unspecified type Qualified Code(s): D64.9 - Anemia, unspecified Assessment/Plan: Admission H&H low, 6.7 & 19.8 . Pt. received 2 units of PRBCs 04/05. H&H today remains stable 7.9/24.3. Unlikely hymolysis due to retric count 2.64, iron deficiency anemia due to iron level 76, or Vit. B12 anemia due to B12 level of 3187. Plan: Order folic acid level to rule out folic acid anemia >>> results returned 7.05. Recheck CBC in am. Continue with Multivitamin. Consider changing to IV if N/V. (4) Encephalopathy Assessment/Plan: Pt was found down at home and too weak to get up. On admission pt had flat affect and slow speech. Today she is more alert. Plan: Continue with po lactulose BID to decrease ammonia level. Continue with po Rifaximin. (5) Alcohol abuse Assessment/Plan: Negative BAL on admission. AST 129, ALT 44, and GGT was 63. CIWA score 4. Plan: Continue with CIWA to monitor for withdrawal. Give prn ativan accoring to CIWA protocol. PO MVI and thiamine started today. (6) Coagulopathy Assessment/Plan: 04/05 INR was 1.9. Platelets are 141 today. Likely due to liver disease Plan: Continue to monitor CBC for low Platelets. Monitor INR as need for suspected bleeding. Consider Vitamin K for elevated INR. (7) Hyponatremia Assessment/Plan: Admit sodium 126, slightly improved today 129. Urine Na is <12. Most likely due to acites from liver cirrhosis and is hypovolemic hyponatremic. Morning p otassium 3.1, 40mEq of IV KCL given Plan: Continue Midodrine if able to tolerate with new onset N/V. Correct hypokalemia. Consider Albumin if sodium remains low and hypotension persists. (8) Nausea & vomiting Assessment/Plan: Pt. is having nausea and vomiting. Zofran IVP given by RN. Most likely due to increased medications. Plan: Continue to monitor I&Os. Continue with Zofran IVP for N/V. Administer medications with food. Consider adding additional antiemetic if N/V persists and not responsive to Zofran. - Current Meds Current Meds: Current Medications Generic Name Dose Route Start Last Admin Trade Name Saul PRN Reason Stop Dose Admin Potassium Chloride 10 meq in 100 mls @ 100 mls/hr 04/07/21 09:00 04/07/21 12:04 Potassium Chloride IV 04/07/21 12:59 100 mls/hr Q1H BRADLY Administration Lactulose 10 gm 04/06/21 15:00 04/07/21 06:55 Lactulose 10 Gm /15 Ml Udc PO 10 gm TID BRADLY Administration Midodrine 5 mg 04/06/21 15:00 04/07/21 08:52 Midodrine 2.5 Mg Tablet PO 5 mg TIDWM BRADLY Administration Multivit/Folic Acid/Iron 1 tab 04/07/21 08:00 04/07/21 08:52 Vitamin Tablet PO 1 tab DAILYWM BRADLY Administration Rifaximin 550 mg 04/06/21 21:00 04/07/21 08:52 Rifaximin 550 Mg Tablet PO 550 mg BID BRADLY Administration Thiamine HCl 100 mg 04/07/21 09:00 04/07/21 08:52 Thiamine 100 Mg Tablet PO 100 mg DAILY BRADLY Administration - Lab Result Fish Bone Diagrams: 04/07/21 07:04 04/07/21 07:04 Subjective - Subjective Patient Reports: Feeling Better, Resting Comfortably, No Complaints (Pt. reports feeling better today. Denies changes in abd. girth. Denies nausea or vomiting. Continues to have frequent loose stools. Last BM was this am.) Nursing Reports: Nausea (Nurse reports pt is having nausea and vomiting.), Vomitting Objective Vital Signs: Vital Signs - 24 hr 04/06/21 04/06/21 04/06/21 14:21 16:08 20:14 Temperature 36.4 C L 36.6 C 36.5 C Heart Rate [ 86 89 87 Brachial] Respiratory 14 14 16 Rate Blood Pressure 89/49 L 98/50 L 92/52 L [Right Brachial artery] O2 Saturation 93 100 95 04/06/21 04/07/21 04/07/21 23:38 00:23 05:00 Temperature 36.3 C L 36.3 C L Heart Rate [ 87 82 Brachial] Respiratory 16 16 Rate Blood Pressure 88/50 L 98/42 L 96/56 L [Right Brachial artery] O2 Saturation 95 95 04/07/21 07:41 Temperature 36.3 C L Heart Rate [ 88 Brachial] Respiratory 16 Rate Blood Pressure 91/59 L [Right Brachial artery] O2 Saturation 94 Oxygen O2 Source Room air I&O (Last 24 Hrs): Intake and Output Totals x24h 04/05/21 04/06/21 04/07/21 23:59 23:59 23:59 Intake Total 551 1824.2 1420 Output Total 200 250 Balance 551 1624.2 1170 General: Alert, Oriented x3, Cooperative HEENT: PERRLA, EOMI, Other (Mucous membraines are moist and jaundice.) Neck: Supple, No JVD Neuro: Alert Cardiovascular: Regular rate, Normal S1, Normal S2, No murmurs Respiratory: Chest non-tender, No respiratory distress, Breath sounds nml Abdomen: Normal bowel sounds, No tenderness, No hepatospenomegaly, Other (Abd. distended) Extremities: No clubbing, No cyanosis, No edema, Other (Jaundice through out) Skin: No breakdown - Results Results: Laboratory Results WBC 20.1 x10^3/uL (4.8-10.8) H 04/07/21 07:04 RBC 2.43 10^6/uL (4.20-5.40) L 04/07/21 07:04 Hgb 7.9 g/dL (12.0-16.0) L 04/07/21 07:04 Hct 24.3 % (37.0-47.0) L 04/07/21 07:04 MCV 100.0 fL (81.0-99.0) H 04/07/21 07:04 MCH 32.5 pg (27.0-31.0) H 04/07/21 07:04 MCHC 32.5 g/dL (32.0-36.0) 04/07/21 07:04 RDW 19.6 % (12.0-15.0) H 04/07/21 07:04 Plt Count 141 10^3/uL (130-450) 04/07/21 07:04 MPV 10.6 fL (7.9-10.8) 04/07/21 07:04 Reticulocyte % (Auto) 2.64 % (0.5-2.3) H 04/06/21 14:46 Neut # (Auto) 16.4 10^3/uL (1.5-6.6) H 04/07/21 07:04 Lymph # (Auto) 1.9 10^3/uL (1.5-3.5) 04/07/21 07:04 [place] # (Auto) 1.4 10^3/uL (0.0-1.0) H 04/07/21 07:04 Eos # (Auto) 0.0 10^3/uL (0.0-0.7) 04/07/21 07:04 Baso # (Auto) 0.1 10^3/uL (0.0-0.1) 04/07/21 07:04 Absolute Nucleated RBC 0.00 x10^3/uL 04/07/21 07:04 Total Counted 100 04/06/21 14:46 Band Neuts % (Manual) Not Reportable 04/07/21 07:04 Abnorm Lymph % (Manual) Not Reportable 04/07/21 07:04 Nucleated RBC % 0.0 /100WBC 04/07/21 07:04 Neutrophils # (Manual) Not Reportable 04/07/21 07:04 Lymphocytes # (Manual) Not Reportable 04/07/21 07:04 Monocytes # (Manual) Not Reportable 04/07/21 07:04 Eosinophils # (Manual) Not Reportable 04/07/21 07:04 Basophils # (Manual) Not Reportable 04/07/21 07:04 Differential Comment Y 04/07/21 07:04 Manual Slide Review Indicated 04/06/21 07:13 WBC Morphology NORMAL APPEARANCE (NORMAL) 04/07/21 07:04 Platelet Estimate NORMAL (130-450,000) (NORMAL) 04/07/21 07:04 Platelet Morphology NORMAL SANDRA (NORMAL) 04/07/21 07:04 RBC Morph Micro Appear 2+ ANISOCYTOSIS (NORMAL) 2+ POIKILOCYTOSIS (NORMAL) 1+ POLYCHROMASIA (NORMAL) 1+ OVALOCYTES (NORMAL) 1+ HYPOCHROMASIA (NORMAL) 1+ MACROCYTOSIS (NORMAL) 1+ MICROCYTOSIS (NORMAL) 1+ TARGET CELLS (NORMAL) 04/07/21 07:04 RBC Morph Micro Appear 2+ ANISOCYTOSIS (NORMAL) 2+ POIKILOCYTOSIS (NORMAL) 1+ POLYCHROMASIA (NORMAL) 1+ OVALOCYTES (NORMAL) 1+ HYPOCHROMASIA (NORMAL) 1+ MACROCYTOSIS (NORMAL) 1+ MICROCYTOSIS (NORMAL) 1+ TARGET CELLS (NORMAL) 04/07/21 07:04 RBC Morph Micro Appear 2+ ANISOCYTOSIS (NORMAL) 2+ POIKILOCYTOSIS (NORMAL) 1+ POLYCHROMASIA (NORMAL) 1+ OVALOCYTES (NORMAL) 1+ HYPOCHROMASIA (NORMAL) 1+ MACROCYTOSIS (NORMAL) 1+ MICROCYTOSIS (NORMAL) 1+ TARGET CELLS (NORMAL) 04/07/21 07:04 RBC Morph Micro Appear 2+ ANISOCYTOSIS (NORMAL) 2+ POIKILOCYTOSIS (NORMAL) 1+ POLYCHROMASIA (NORMAL) 1+ OVALOCYTES (NORMAL) 1+ HYPOCHROMASIA (NORMAL) 1+ MACROCYTOSIS (NORMAL) 1+ MICROCYTOSIS (NORMAL) 1+ TARGET CELLS (NORMAL) 04/07/21 07:04 RBC Morph Micro Appear 2+ ANISOCYTOSIS (NORMAL) 2+ POIKILOCYTOSIS (NORMAL) 1+ POLYCHROMASIA (NORMAL) 1+ OVALOCYTES (NORMAL) 1+ HYPOCHROMASIA (NORMAL) 1+ MACROCYTOSIS (NORMAL) 1+ MICROCYTOSIS (NORMAL) 1+ TARGET CELLS (NORMAL) 04/07/21 07:04 RBC Morph Micro Appear 2+ ANISOCYTOSIS (NORMAL) 2+ POIKILOCYTOSIS (NORMAL) 1+ POLYCHROMASIA (NORMAL) 1+ OVALOCYTES (NORMAL) 1+ HYPOCHROMASIA (NORMAL) 1+ MACROCYTOSIS (NORMAL) 1+ MICROCYTOSIS (NORMAL) 1+ TARGET CELLS (NORMAL) 04/07/21 07:04 RBC Morph Micro Appear 2+ ANISOCYTOSIS (NORMAL) 2+ POIKILOCYTOSIS (NORMAL) 1+ POLYCHROMASIA (NORMAL) 1+ OVALOCYTES (NORMAL) 1+ HYPOCHROMASIA (NORMAL) 1+ MACROCYTOSIS (NORMAL) 1+ MICROCYTOSIS (NORMAL) 1+ TARGET CELLS (NORMAL) 04/07/21 07:04 RBC Morph Micro Appear 2+ ANISOCYTOSIS (NORMAL) 2+ POIKILOCYTOSIS (NORMAL) 1+ POLYCHROMASIA (NORMAL) 1+ OVALOCYTES (NORMAL) 1+ HYPOCHROMASIA (NORMAL) 1+ MACROCYTOSIS (NORMAL) 1+ MICROCYTOSIS (NORMAL) 1+ TARGET CELLS (NORMAL) 04/07/21 07:04 Absolute Retic 0.063 10^6/uL (0.020-0.110) 04/06/21 14:46 PT 21.5 secs (9.9-12.6) H 04/05/21 15:30 INR 1.9 (0.8-1.2) H 04/05/21 15:30 Sodium 129 mmol/L (135-145) L 04/07/21 07:04 Potassium 3.1 mmol/L (3.5-5.0) L 04/07/21 07:04 Chloride 90 mmol/L (101-111) L 04/07/21 07:04 Carbon Dioxide 26 mmol/L (21-32) 04/07/21 07:04 Anion Gap 13.0 (6-13) 04/07/21 07:04 BUN 45 mg/dL (6-20) H 04/07/21 07:04 Creatinine 1.7 mg/dL (0.4-1.0) H 04/07/21 07:04 Estimated GFR (MDRD) 31 (>89) L 04/07/21 07:04 Glucose 110 mg/dL (70-100) H 04/07/21 07:04 Lactic Acid 1.8 mmol/L (0.5-2.2) 04/05/21 17:01 Calcium 8.4 mg/dL (8.5-10.3) L 04/07/21 07:04 Phosphorus 5.1 mg/dL (2.5-4.6) H 04/06/21 07:13 Magnesium 2.1 mg/dL (1.7-2.8) 04/06/21 07:13 Iron 76 ug/dL (28-170) 04/07/21 07:04 TIBC 164 ug/dL (250-450) L 04/07/21 07:04 % Saturation 46 % (20-50) 04/07/21 07:04 Transferrin 117 mg/dL (192-382) L 04/07/21 07:04 Ferritin 124.9 ng/mL (11.0-306.8) 04/06/21 07:13 Total Bilirubin 10.3 mg/dL (0.2-1.0) H 04/07/21 07:04 Direct Bilirubin 5.9 mg/dL (0.1-0.5) H 04/06/21 07:13 GGT 163 IU/L (8-38) H 04/06/21 14:46 AST 129 IU/L (10-42) H 04/07/21 07:04 ALT 44 IU/L (10-60) 04/07/21 07:04 Alkaline Phosphatase 207 IU/L (42-121) H 04/07/21 07:04 Ammonia 45.2 umol/L (7-35) H 04/05/21 15:30 Lactate Dehydrogenase 229 IU/L (91-225) H 04/06/21 14:46 Total Creatine Kinase 156 IU/L (22-269) 04/05/21 15:30 Total Protein 5.6 g/dL (6.7-8.2) L 04/07/21 07:04 Albumin 2.1 g/dL (3.2-5.5) L 04/07/21 07:04 Globulin 3.5 g/dL (2.1-4.2) 04/07/21 07:04 Albumin/Globulin Ratio 0.6 (1.0-2.2) L 04/07/21 07:04 Lipase 19 U/L (22-51) L 04/05/21 15:30 Vitamin B12 3187 pg/mL (180-914) H 04/07/21 07:04 Urine Color DARK YELLOW 04/06/21 15:36 Urine Clarity CLEAR (CLEAR) 04/06/21 15:36 Urine pH PH (5.0-7.5) 04/06/21 15:36 Ur Specific [employer] (1.002-1.030) 04/06/21 15:36 Urine Protein NEGATIVE mg/dL (NEGATIVE) 04/06/21 15:36 Urine Glucose (UA) NEGATIVE mg/dL (NEGATIVE) 04/06/21 15:36 Urine Ketones mg/dL (NEGATIVE) 04/06/21 15:36 Urine Occult Blood TRACE-INTA (NEGATIVE) 04/06/21 15:36 Urine Nitrite (NEGATIVE) 04/06/21 15:36 Urine Bilirubin LARGE (NEGATIVE) H 04/06/21 15:36 Urine Urobilinogen E.U./dL (NORMAL) 04/06/21 15:36 Ur Leukocyte Esterase NEGATIVE (NEGATIVE) 04/06/21 15:36 Urine RBC 0-5 /HPF (0-5) 04/06/21 15:36 Urine WBC 0-3 /HPF (0-5) 04/06/21 15:36 Ur Squamous Epith Cells MANY Squamous (<= Few) H 04/06/21 15:36 Urine Bacteria Moderate /HPF (None Seen) H 04/06/21 15:36 Ur Microscopic Review INDICATED 04/06/21 15:36 Urine Culture Comments NOT INDICATED 04/06/21 15:36 Urine Sodium < 12.0 mmol/L 04/07/21 05:07 Nasal Adenovirus (PCR) NOT DETECTED 04/05/21 18:26 Nasal B. parapertussis DNA (PCR) NOT DETECTED 04/05/21 18:26 Nasal Coronavir 229E PCR NOT DETECTED 04/05/21 18:26 Nasal Coronavir HKU1 PCR NOT DETECTED 04/05/21 18:26 Nasal Coronavir NL63 PCR NOT DETECTED 04/05/21 18:26 Nasal Coronavir OC43 PCR NOT DETECTED 04/05/21 18:26 Nasal Enterovir/Rhinovir PCR NOT DETECTED 04/05/21 18:26 Nasal Influenza B PCR NOT DETECTED 04/05/21 18:26 Nasal Influenza A PCR NOT DETECTED 04/05/21 18:26 Nasal Parainfluen 1 PCR NOT DETECTED 04/05/21 18:26 Nasal Parainfluen 2 PCR NOT DETECTED 04/05/21 18:26 Nasal Parainfluen 3 PCR NOT DETECTED 04/05/21 18:26 Nasal Parainfluen 4 PCR NOT DETECTED 04/05/21 18:26 Nasal RSV (PCR) NOT DETECTED 04/05/21 18:26 Nasal B.pertussis DNA PCR NOT DETECTED 04/05/21 18:26 Nasal C.pneumoniae (PCR) NOT DETECTED 04/05/21 18:26 Morgan Human Metapneumo PCR NOT DETECTED 04/05/21 18:26 Nasal M.pneumoniae (PCR) NOT DETECTED 04/05/21 18:26 Nasal SARS-CoV-2 (PCR) NOT DETECTED 04/05/21 18:26 Urine Opiates Screen NEGATIVE (NEGATIVE) 04/06/21 06:40 Ur Oxycodone Screen NEGATIVE (NEGATIVE) 04/06/21 06:40 Urine Methadone Screen NEGATIVE (NEGATIVE) 04/06/21 06:40 Ur Propoxyphene Screen NEGATIVE (NEGATIVE) 04/06/21 06:40 Ur Barbiturates Screen NEGATIVE (NEGATIVE) 04/06/21 06:40 Ur Tricyclics Screen NEGATIVE (NEGATIVE) 04/06/21 06:40 Ur Phencyclidine Scrn NEGATIVE (NEGATIVE) 04/06/21 06:40 Ur Amphetamine Screen NEGATIVE (NEGATIVE) 04/06/21 06:40 U Methamphetamines Scrn NEGATIVE (NEGATIVE) 04/06/21 06:40 U Benzodiazepines Scrn NEGATIVE (NEGATIVE) 04/06/21 06:40 Urine Cocaine Screen NEGATIVE (NEGATIVE) 04/06/21 06:40 U Cannabinoids Screen POSITIVE (NEGATIVE) H 04/06/21 06:40 Ethyl Alcohol < 5.0 mg/dL 04/05/21 15:30 Hepatitis A IgM Ab NON-REACTIVE (NON-REACTIVE) 04/06/21 07:13 Hep Bs Antigen NON-REACTIVE (NON-REACTIVE) 04/06/21 07:13 Hep B Core IgM Ab NON-REACTIVE (NON-REACTIVE) 04/06/21 07:13 Hepatitis C Antibody NON-REACTIVE (NON-REACTIVE) 04/06/21 07:13 Hep C Ab Signal/Cutoff 0.10 (<1.00) 04/06/21 07:13 Blood Type O POSITIVE 04/05/21 17:01 Blood Type Recheck O POSITIVE 04/05/21 15:30 Antibody Screen NEGATIVE 04/05/21 17:01 Crossmatch IS Only See Detail 04/05/21 17:01 ABX Reporting Has patient been on IV antibiotics over the past 48 hours?: Yes
[2021-04-07] MEDS: ONDANSETRON 4 MG/2 ML VIAL IVP PRN ×3 (13:32→22:58)
[2021-04-07] MEDS ORDERED: MIDODRINE 2.5 MG TABLET PO SCH (16:35)
[2021-04-08] MEDS: ONDANSETRON 4 MG/2 ML VIAL IVP PRN ×2 (03:36→09:31)
[2021-04-08] MEDS ORDERED: PROMETHAZINE INJ 25 MG in SODIUM CHLORIDE 0.9% 50 ML IV PRN (05:28)
[2021-04-08] MEDS: LACTULOSE 10 GM /15 ML UDC PO SCH (06:33)
[2021-04-08 07:54] LABS: BASOPHILS % (AUTO) 0.3 %; EOSINOPHILS % (AUTO) 0.3 %; HCT - HEMATOCRIT 22.4 % (37.0-47.0); HGB - HEMOGLOBIN 7.5 g/dL (12.0-16.0); LYMPHOCYTES % (AUTO) 9.1 %; MEAN CORPUSCULAR HEMOGLOBIN 33.5 pg (27.0-31.0); MEAN CORPUSCULAR HGB CONC 33.5 g/dL (32.0-36.0); MEAN PLATELET VOLUME 10.9 fL (7.9-10.8); MONOCYTES % (AUTO) 7.9 %; NEUTROPHILS % (AUTO) 80.6 %; PLT - PLATELET COUNT 131 10^3/uL (130-450); RED BLOOD COUNT 2.24 10^6/uL (4.20-5.40); RED CELL DISTRIBUTION WIDTH 19.2 % (12.0-15.0); WHITE BLOOD COUNT 20.8 x10^3/uL (4.8-10.8)
[2021-04-08] MEDS ORDERED: SODIUM CHLORIDE 0.9% 1,000 ML IV SCH (08:24)
[2021-04-08 08:29] LABS: ALBUMIN/GLOBULIN RATIO 0.7 (1.0-2.2); BILIRUBIN,TOTAL 9.3 mg/dL (0.2-1.0); CALCIUM 8.2 mg/dL (8.5-10.3); CREATININE 1.5 mg/dL (0.4-1.0); POTASSIUM 3.4 mmol/L (3.5-5.0)
[2021-04-08 09:15] LABS: PLATELET ESTIMATE, MANUAL NORMAL (130-450,000) (NORMAL); PLATELET MORPHOLOGY NORMAL APPEARANCE (NORMAL); WBC MORPHOLOGY (MULTIPLE) 1+ TOXIC GRANULATION (NORMAL)
[2021-04-08 09:22] LABS: DIFFERENTIAL COMMENT MANUAL DIFFERENTIAL
[2021-04-08] MEDS: PANTOPRAZOLE 40 MG VIAL IVP SCH ×2 (09:31→21:35)
[2021-04-08] MEDS: rifAXIMin 550 MG TABLET PO SCH ×2 (09:31→21:35)
[2021-04-08] MEDS: MULTIVITAMIN 10 ML, THIAMINE INJ 100 MG, FOLIC ACID INJ 1 MG in SODIUM CHLORIDE 0.9% 1,... IV SCH (10:59)
[2021-04-08 11:32] LABS: HCT - HEMATOCRIT 23.1 % (37.0-47.0); HGB - HEMOGLOBIN 7.6 g/dL (12.0-16.0)
[2021-04-08] MEDS: LACTULOSE 10 GM /15 ML UDC PR SCH ×2 (13:59→21:35)
--- NOTE | 2021-04-08 14:44 | PHARMACY PROGRESS NOTE ---
- Best Possible Medication History Admit Date and Time: 04/05/211817 Processed by: Pharmacy Medication History completed: Yes Patient Interview: Pt interview ONLY source As the person ultimately responsible for medication therapy, providers are able to order a medication from an existing home medication list in [facility] via the "Reconcile Routine" prior to Confirmation of that medication by whanau support worker. Such practice is discouraged except when the physician, in their clinical judgment, deems that a medical need exists for a medication without regard to previous use.
[2021-04-08] MEDS ORDERED: PROCHLORPERAZINE 10 MG/2 ML VIAL IVP PRN (15:33)
--- NOTE | 2021-04-08 15:40 | PROVIDER PROGRESS NOTE ---
Assessment/Plan - Problem List (1) Hypotension Assessment/Plan: She has been hypotensive in the 80s and 90s systolic since admission. She was started on midodrine which she only took for half a day and then developed nausea and vomiting the very next day. She got 1 day of banana bag, then some extra saline. She got 1 amp Albumen Because she is n.p.o. now, due to coffee-ground emesis, nausea and vomiting, will resume iv fluids with banana bag containing NS. Transfer the unit the patient to the ICU, [place] for accurate I's and O's, she may need iv pressors. Etiology of persistent hypotension is unclear; possibly due to end-stage liver disease since she does not appear to have septic shock (lactic acid normal), not cardiogenic shock from her presentation and normal troponins. 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 (2) Gram-positive bacteremia Assessment/Plan: WBC elevated on admission at 26.5. Cause was not readily apparent at admission, since she was afebrile. 1 of 2 blood cultures done at admission is growing GPC and the identification is pending. She has been started on IV Vanco empirically (3) Nausea & vomiting Assessment/Plan: This could be from gastritis or from many new medications started this hospitalization since she was on no prescription meds before this or from an acu te GI bleed. Continue with antiemetics as needed, trying to avoid those that are liver metabolized (4) UGI bleed Assessment/Plan: Coffee-ground emesis started yesterday. She again vomited today, the nurse did not see it. She has been started on IV Protonix twice daily. Steroids were stopped Her essential po meds are being changed to iv formulations Her regular diet has been stopped, she is n.p.o. except ice chips. She requests sawyer shireen which will be okay'd EGD to be done here at a critical [facility]. Continue with rifaximin. I will reach out to have her accepted at a higher level of care hospital that have a Director Of First Impressions and GI specialists. Patient of this plan and she agrees. Follow H/H Q 8-12 hours and transfuse if Hgb under 7 (5) Alcoholic hepatitis with ascites Assessment/Plan: Most likely related to Alcohol. -AST 129/ALT 44 > 2:1, and GGT is elevated 63 and there were bottles of alcohol found at her home, even though she denies ETOH use. Her Meld score is 31 points. (Estimated mortality 52.6% in 3 months). Her Discriminant factor is 55.2 and she was given steroids. - Acute hepatitis panel- is pending - Alpha-fetoprotein, anti-Lane antibodies, anti-Ro antibodies, ceruloplasmin, EMPERATRIZ are pending. - Alpha1 antitryp not available - Abdominal Ultrasound 04/06: Gallbladder prominent distention w/ lobulated intraluminal filling defet 7.7 x 3.1 x 4.1; suspicious of biliary sludge. GBW thickening up to 0.7cm No IHDD + EHDD. Extrahepatic bile duct caliber up to 0.7 cm. Normal 6-7 mgg or less or 10 mm post choley. Moderate ascites Nodular cirrhotic liver without discrete mass. Distention of gallbladder w/ gallbladder wall thickening; no specific in context of ascites and liver disease. Cannot r/o cholecystitis/ clinical correlation recommended - PCP office at [facility], Dr Milli Comer was contacted 04/06; Dr Comer is expected out of office chantel Vivar 04/10/21, but [place] [facility] [place] [phone]. Patient last seen in 2019 and PMH notable only for B12 deficiency, bunions, "left ankle pain" and nocturia Plan is to have her transferred to a higher level of care hospital that has hepatology and GI specialists (6) Coagulopathy Assessment/Plan: Her INR was 1.9 on admission, consistent with liver dysfunction and synthesis problems. We will repeat INR now Consider Vitamin K for elevated INR. (7) Alcohol abuse Assessment/Plan: On admission pt had flat affect and slow speech. Today she is more alert. Patient denied alcohol use or abuse to the admitting doctor. Her blood alc level was zeroi at admission but she had been on the ground for unknown period of time. AST 129, ALT 44, and GGT was 63. CIWA score 4. Labs show an elevated GGT and this pattern of LFTs is consistent with alcohol abuse. Social work to see the patient to help determine if she will discuss her alcohol use. On CIWA Protocol, scoring 4-5. She is again on banana bag for IV fluids since she is n.p.o. again from the nausea/vomiting. Lactulose and Rifaximin started for encephalopathy (8) Anemia Qualifiers: Anemia type: unspecified type Qualified Code(s): D64.9 - Anemia, unspecified Assessment/Plan: And an admission and she got units PRBCs, hemoglobin has improved and stabilized. She then started to have coffee-ground emesis and with the CT report of distal esophageal thickening, she may have bleeding esophageal varices. She is not a candidate for endoscopy here at this critical access hospital with no GI specialist. Continue to monitor her hemoglobin q 8- 12 hours, transfuse if Hgb <7 (9) Acute kidney injury Assessment/Plan: She had evidence of HEATHER from ATN, volume depletion and hypotension on admission. Continue with IV fluids since her diet is now n.p.o. because of nausea and vomiting and coffee-ground emesis. Avoid nephrotoxins. Follow BMP daily (10) Hyponatremia Assessment/Plan: This is consistent with her alcohol abuse diagnosis. Continue with fluids containing NS. Follow BMP daily (11) Hypokalemia Assessment/Plan: Likely caused by poor p.o. intake. Replace with K riders not orally. Follow BMP daily (12) Fall Qualifiers: Encounter type: subsequent encounter Qualified Code(s): W19.XXXD - Unspecified fall, subsequent encounter Assessment/Plan: She was too weak to stand up after falling in her residence. PT was originally ordered for evaluationm, but then she had findings of bacteremia and then next day had coffee-ground emesis, thus no PT has started yet - Current Meds Current Meds: Current Medications Generic Name Dose Route Start Last Admin Trade Name Freq PRN Reason Stop Dose Admin Multivitamins 10 ml/ Thiamine 1,011.2 mls @ 100 mls/hr 04/08/21 09:00 04/08/21 14:04 HCl 100 mg/ Folic Acid 1 mg/ IV 0 mls/hr Sodium Chloride DAILY BRADLY Infusion Sodium Chloride 1,000 mls @ 50 mls/hr 04/08/21 08:24 04/08/21 14:04 Normal Saline 0.9% IV 0 mls/hr .Q20H BRADLY Infusion Lactulose 10 gm 04/08/21 14:00 04/08/21 13:59 Lactulose 10 Gm /15 Ml Udc [place] 10 gm TID BRADLY Administration Ondansetron HCl 4 mg 04/07/21 13:06 04/08/21 09:31 Ondansetron 4 Mg/2 Ml Vial IVP 4 mg Q4HR PRN Administration Nausea / Vomiting Pantoprazole Sodium 40 mg 04/08/21 09:00 04/08/21 09:31 Pantoprazole 40 Mg Vial IVP 40 mg BID BRADLY Administration Rifaximin 550 mg 04/06/21 21:00 04/08/21 09:31 Rifaximin 550 Mg Tablet PO 550 mg BID BRADLY Administration - Lab Result Fish Bone Diagrams: 04/08/21 11:14 04/08/21 07:11 - Additional Planning My Orders: My Active Orders 04/08/21 Dietitian to Assess and Manage Nutrition [CONS] Routine 04/08/21 08:18 DIET [NPO] [DIET] 04/08/21 08:24 Sodium Chloride 0.9% [Normal Saline 0.9%] 1,000 ml IV 50 mls/hr 04/08/21 09:00 Multivitamin [Infuvite] 10 ml Thiamine Inj [Vitamin B-1 Inj] 100 mg Folic Acid Inj [Folic Acid] 1 mg Sodium Chloride 0.9% [Normal Saline 0.9%] 1,000 ml IV DAILY Pantoprazole [Protonix] 40 mg IVP BID 04/08/21 14:00 Lactulose [Enulose] 10 gm [place] TID Potassium Chlor 10 Meq/100 ml [Potassium Chloride] 10 meq in 100 ml IV Q1H 04/08/21 15:32 Central Line Insertion [RC] ONCE Telemetry- [RC] Q4HR Transfer [Admit \\ Transfer \\ Status] [RC] .ONCE 04/08/21 15:33 Activity Orders [RC] Q2HR Daily Weight [RC] 0600 Shepherd Insertion [RC] QSHIFT IO [RC] Q1HR Initiate Bowel Care Protocol [RC] QSHIFT Initiate Flu Vaccine Screening [RC] ONCE Initiate ICU Electrolyte Prot. [RC] .protocol Initiate Line Care Protocol [RC] .protocol Initiate Personal Care Protoco [RC] .protocol Initiate Pneumonia Vaccine Scr [RC] ONCE Turn and Reposition [RC] PRN Vital Signs [RC] Q2HR MRSA PCR,CCU ADMIT Routine HYDROmorphone 0.5MG SYRINGE [Dilaudid 0.5MG Syringe] 0.5 mg IVP Q6H PRN Prochlorperazine Inj [Compazine Inj] 10 mg IVP Q6HR PRN Sodium Chloride Flush 0.9% [Normal Saline Flush 0.9%] 10 ml IVP PRN PRN Code Status [OTHERS] Routine Condition of Patient [OTHERS] Routine DVT Prophylaxis [OTHERS] Routine 04/08/21 15:35 Shepherd Continuation and Care [RC] QSHIFT Oxygen Therapy [RC] .PRN SCDs [RC] QSHIFT 04/08/21 16:00 D5ns W/20 Meq KCl 1,000 ml IV 100 mls/hr 04/08/21 17:00 Sodium Chloride Flush 0.9% [Normal Saline Flush 0.9%] 10 ml IVP 0100,0900,1700 04/09/21 05:00 AMMONIA [CHEM] DAILYLAB CBC - COMP BLD CT W/AUTO DIFF [HEME] DAILYLAB COMPREHENSIVE METABOLIC PANEL [CHEM] DAILYLAB MAGNESIUM [CHEM] DAILYLAB PHOSPHORUS [CHEM] DAILYLAB PT WITH INR [COAG] DAILYLAB 04/09/21 10:00 Vancomycin Inj [Vancomycin] 1 gm Vancomycin Inj [Vancomycin Hcl] 500 mg Sodium Chloride 0.9% [Normal Saline 0.9%] 500 ml IV Q48H 04/10/21 05:00 AMMONIA [CHEM] DAILYLAB 04/11/21 05:00 AMMONIA [CHEM] DAILYLAB 04/12/21 05:00 AMMONIA [CHEM] DAILYLAB Subjective - Subjective Patient Reports: Nausea, Pain Objective Vital Signs: Vital Signs - 24 hr 04/07/21 04/07/21 04/08/21 15:43 21:00 00:15 Temperature 36.5 C 36.4 C L 36.3 C L Heart Rate [ 87 85 83 Brachial] Respiratory 16 18 17 Rate Blood Pressure 95/52 L [Left Brachial artery] Blood Pressure 89/50 L 94/58 L [Right Brachial artery] O2 Saturation 100 96 91 L 04/08/21 04/08/21 08:29 13:00 Temperature 36.4 C L 36.6 C Heart Rate [ 84 84 Brachial] Respiratory 18 20 Rate Blood Pressure 88/52 L [Left Brachial artery] Blood Pressure 90/55 L [Right Brachial artery] O2 Saturation 92 Oxygen O2 Source Room air I&O (Last 24 Hrs): Intake and Output Totals x24h 04/06/21 04/07/21 04/08/21 23:59 23:59 23:59 Intake Total 1824.2 2320 535.000 Output Total 200 1225 325 Balance 1624.2 1095 210.000 - Results Results: Laboratory Results WBC 20.8 x10^3/uL (4.8-10.8) H 04/08/21 07:11 RBC 2.24 10^6/uL (4.20-5.40) L 04/08/21 07:11 Hgb 7.6 g/dL (12.0-16.0) L 04/08/21 11:14 Hct 23.1 % (37.0-47.0) L 04/08/21 11:14 MCV 100.0 fL (81.0-99.0) H 04/08/21 07:11 MCH 33.5 pg (27.0-31.0) H 04/08/21 07:11 MCHC 33.5 g/dL (32.0-36.0) 04/08/21 07:11 RDW 19.2 % (12.0-15.0) H 04/08/21 07:11 Plt Count 131 10^3/uL (130-450) 04/08/21 07:11 MPV 10.9 fL (7.9-10.8) H 04/08/21 07:11 Reticulocyte % (Auto) 2.64 % (0.5-2.3) H 04/06/21 14:46 Neut # (Auto) METAL PLATER 04/08/21 07:11 Lymph # (Auto) METAL PLATER 04/08/21 07:11 [place] # (Auto) METAL PLATER 04/08/21 07:11 Eos # (Auto) METAL PLATER 04/08/21 07:11 Baso # (Auto) METAL PLATER 04/08/21 07:11 Absolute Nucleated RBC METAL PLATER 04/08/21 07:11 Total Counted METAL PLATER 04/08/21 07:11 Band Neuts % (Manual) METAL PLATER 04/08/21 07:11 Abnorm Lymph % (Manual) METAL PLATER 04/08/21 07:11 Nucleated RBC % METAL PLATER 04/08/21 07:11 Neutrophils # (Manual) METAL PLATER 04/08/21 07:11 Lymphocytes # (Manual) METAL PLATER 04/08/21 07:11 Monocytes # (Manual) METAL PLATER 04/08/21 07:11 Eosinophils # (Manual) METAL PLATER 04/08/21 07:11 Basophils # (Manual) METAL PLATER 04/08/21 07:11 Differential Comment MANUAL DIFFERENTIAL 04/08/21 07:11 Manual Slide Review Indicated 04/06/21 07:13 WBC Morphology 1+ TOXIC GRANULATION (NORMAL) 04/08/21 07:11 Platelet Estimate NORMAL (130-450,000) (NORMAL) 04/08/21 07:11 Platelet Morphology NORMAL APPEARANCE (NORMAL) 04/08/21 07:11 RBC Morph Micro Appear 1+ TARGET CELLS (NORMAL) 1+ OVALOCYTES (NORMAL) 1+ MACROCYTOSIS (NORMAL) 1+ MICROCYTOSIS (NORMAL) 1+ HYPOCHROMASIA (NORMAL) 1+ POLYCHROMASIA (NORMAL) 1+ SCHISTOCYTES (NORMAL) 04/08/21 07:11 RBC Morph Micro Appear 1+ TARGET CELLS (NORMAL) 1+ OVALOCYTES (NORMAL) 1+ MACROCYTOSIS (NORMAL) 1+ MICROCYTOSIS (NORMAL) 1+ HYPOCHROMASIA (NORMAL) 1+ POLYCHROMASIA (NORMAL) 1+ SCHISTOCYTES (NORMAL) 04/08/21 07:11 RBC Morph Micro Appear 1+ TARGET CELLS (NORMAL) 1+ OVALOCYTES (NORMAL) 1+ MACROCYTOSIS (NORMAL) 1+ MICROCYTOSIS (NORMAL) 1+ HYPOCHROMASIA (NORMAL) 1+ POLYCHROMASIA (NORMAL) 1+ SCHISTOCYTES (NORMAL) 04/08/21 07:11 RBC Morph Micro Appear 1+ TARGET CELLS (NORMAL) 1+ OVALOCYTES (NORMAL) 1+ MACROCYTOSIS (NORMAL) 1+ MICROCYTOSIS (NORMAL) 1+ HYPOCHROMASIA (NORMAL) 1+ POLYCHROMASIA (NORMAL) 1+ SCHISTOCYTES (NORMAL) 04/08/21 07:11 RBC Morph Micro Appear 1+ TARGET CELLS (NORMAL) 1+ OVALOCYTES (NORMAL) 1+ MACROCYTOSIS (NORMAL) 1+ MICROCYTOSIS (NORMAL) 1+ HYPOCHROMASIA (NORMAL) 1+ POLYCHROMASIA (NORMAL) 1+ SCHISTOCYTES (NORMAL) 04/08/21 07:11 RBC Morph Micro Appear 1+ TARGET CELLS (NORMAL) 1+ OVALOCYTES (NORMAL) 1+ MACROCYTOSIS (NORMAL) 1+ MICROCYTOSIS (NORMAL) 1+ HYPOCHROMASIA (NORMAL) 1+ POLYCHROMASIA (NORMAL) 1+ SCHISTOCYTES (NORMAL) 04/08/21 07:11 RBC Morph Micro Appear 1+ TARGET CELLS (NORMAL) 1+ OVALOCYTES (NORMAL) 1+ MACROCYTOSIS (NORMAL) 1+ MICROCYTOSIS (NORMAL) 1+ HYPOCHROMASIA (NORMAL) 1+ POLYCHROMASIA (NORMAL) 1+ SCHISTOCYTES (NORMAL) 04/08/21 07:11 Absolute Retic 0.063 10^6/uL (0.020-0.110) 04/06/21 14:46 PT 21.5 secs (9.9-12.6) H 04/05/21 15:30 INR 1.9 (0.8-1.2) H 04/05/21 15:30 Sodium 130 mmol/L (135-145) L 04/08/21 07:11 Potassium 3.4 mmol/L (3.5-5.0) L 04/08/21 07:11 Chloride 93 mmol/L (101-111) L 04/08/21 07:11 Carbon Dioxide 27 mmol/L (21-32) 04/08/21 07:11 Anion Gap 10.0 (6-13) 04/08/21 07:11 BUN 44 mg/dL (6-20) H 04/08/21 07:11 Creatinine 1.5 mg/dL (0.4-1.0) H 04/08/21 07:11 Estimated GFR (MDRD) 36 (>89) L 04/08/21 07:11 Glucose 101 mg/dL (70-100) H 04/08/21 07:11 Lactic Acid 1.8 mmol/L (0.5-2.2) 04/05/21 17:01 Calcium 8.2 mg/dL (8.5-10.3) L 04/08/21 07:11 Phosphorus 5.1 mg/dL (2.5-4.6) H 04/06/21 07:13 Magnesium 2.1 mg/dL (1.7-2.8) 04/06/21 07:13 Iron 76 ug/dL (28-170) 04/07/21 07:04 TIBC 164 ug/dL (250-450) L 04/07/21 07:04 % Saturation 46 % (20-50) 04/07/21 07:04 Transferrin 117 mg/dL (192-382) L 04/07/21 07:04 Ferritin 124.9 ng/mL (11.0-306.8) 04/06/21 07:13 Total Bilirubin 9.3 mg/dL (0.2-1.0) H 04/08/21 07:11 Direct Bilirubin 5.9 mg/dL (0.1-0.5) H 04/06/21 07:13 GGT 163 IU/L (8-38) H 04/06/21 14:46 AST 128 IU/L (10-42) H 04/08/21 07:11 ALT 41 IU/L (10-60) 04/08/21 07:11 Alkaline Phosphatase 204 IU/L (42-121) H 04/08/21 07:11 Ammonia 36.0 umol/L (7-35) H 04/08/21 13:00 Lactate Dehydrogenase 229 IU/L (91-225) H 04/06/21 14:46 Total Creatine Kinase 156 IU/L (22-269) 04/05/21 15:30 Total Protein 5.0 g/dL (6.7-8.2) L 04/08/21 07:11 Albumin 2.0 g/dL (3.2-5.5) L 04/08/21 07:11 Globulin 3.0 g/dL (2.1-4.2) 04/08/21 07:11 Albumin/Globulin Ratio 0.7 (1.0-2.2) L 04/08/21 07:11 Lipase 19 U/L (22-51) L 04/05/21 15:30 Vitamin B12 3187 pg/mL (180-914) H 04/07/21 07:04 Folate 7.05 ng/mL (5.90 - >24.8) 04/07/21 07:04 Urine Color DARK YELLOW 04/06/21 15:36 Urine Clarity CLEAR (CLEAR) 04/06/21 15:36 Urine pH PH (5.0-7.5) 04/06/21 15:36 Ur Specific [place] (1.002-1.030) 04/06/21 15:36 Urine Protein NEGATIVE mg/dL (NEGATIVE) 04/06/21 15:36 Urine Glucose (UA) NEGATIVE mg/dL (NEGATIVE) 04/06/21 15:36 Urine Ketones mg/dL (NEGATIVE) 04/06/21 15:36 Urine Occult Blood TRACE-INTA (NEGATIVE) 04/06/21 15:36 Urine Nitrite (NEGATIVE) 04/06/21 15:36 Urine Bilirubin LARGE (NEGATIVE) H 04/06/21 15:36 Urine Urobilinogen E.U./dL (NORMAL) 04/06/21 15:36 Ur Leukocyte Esterase NEGATIVE (NEGATIVE) 04/06/21 15:36 Urine RBC 0-5 /HPF (0-5) 04/06/21 15:36 Urine WBC 0-3 /HPF (0-5) 04/06/21 15:36 Ur Squamous Epith Cells MANY Squamous (<= Few) H 04/06/21 15:36 Urine Bacteria Moderate /HPF (None Seen) H 04/06/21 15:36 Ur Microscopic Review INDICATED 04/06/21 15:36 Urine Culture Comments NOT INDICATED 04/06/21 15:36 Urine Sodium < 12.0 mmol/L 04/07/21 05:07 Nasal Adenovirus (PCR) NOT DETECTED 04/05/21 18:26 Nasal B. parapertussis DNA (PCR) NOT DETECTED 04/05/21 18:26 Nasal Coronavir 229E PCR NOT DETECTED 04/05/21 18:26 Nasal Coronavir HKU1 PCR NOT DETECTED 04/05/21 18:26 Nasal Coronavir NL63 PCR NOT DETECTED 04/05/21 18:26 Nasal Coronavir OC43 PCR NOT DETECTED 04/05/21 18:26 Nasal Enterovir/Rhinovir PCR NOT DETECTED 04/05/21 18:26 Nasal Influenza B PCR NOT DETECTED 04/05/21 18:26 Nasal Influenza A PCR NOT DETECTED 04/05/21 18:26 Nasal Parainfluen 1 PCR NOT DETECTED 04/05/21 18:26 Nasal Parainfluen 2 PCR NOT DETECTED 04/05/21 18:26 Nasal Parainfluen 3 PCR NOT DETECTED 04/05/21 18:26 Nasal Parainfluen 4 PCR NOT DETECTED 04/05/21 18:26 Nasal RSV (PCR) NOT DETECTED 04/05/21 18:26 Nasal B.pertussis DNA PCR NOT DETECTED 04/05/21 18:26 Nasal C.pneumoniae (PCR) NOT DETECTED 04/05/21 18:26 [place] Human Metapneumo PCR NOT DETECTED 04/05/21 18:26 Nasal M.pneumoniae (PCR) NOT DETECTED 04/05/21 18:26 Nasal SARS-CoV-2 (PCR) NOT DETECTED 04/05/21 18:26 Urine Opiates Screen NEGATIVE (NEGATIVE) 04/06/21 06:40 Ur Oxycodone Screen NEGATIVE (NEGATIVE) 04/06/21 06:40 Urine Methadone Screen NEGATIVE (NEGATIVE) 04/06/21 06:40 Ur Propoxyphene Screen NEGATIVE (NEGATIVE) 04/06/21 06:40 Ur Barbiturates Screen NEGATIVE (NEGATIVE) 04/06/21 06:40 Ur Tricyclics Screen NEGATIVE (NEGATIVE) 04/06/21 06:40 Ur Phencyclidine Scrn NEGATIVE (NEGATIVE) 04/06/21 06:40 Ur Amphetamine Screen NEGATIVE (NEGATIVE) 04/06/21 06:40 U Methamphetamines Scrn NEGATIVE (NEGATIVE) 04/06/21 06:40 U Benzodiazepines Scrn NEGATIVE (NEGATIVE) 04/06/21 06:40 Urine Cocaine Screen NEGATIVE (NEGATIVE) 04/06/21 06:40 U Cannabinoids Screen POSITIVE (NEGATIVE) H 04/06/21 06:40 Ethyl Alcohol < 5.0 mg/dL 04/05/21 15:30 Hepatitis A IgM Ab NON-REACTIVE (NON-REACTIVE) 04/06/21 07:13 Hep Bs Antigen NON-REACTIVE (NON-REACTIVE) 04/06/21 07:13 Hep B Core IgM Ab NON-REACTIVE (NON-REACTIVE) 04/06/21 07:13 Hepatitis C Antibody NON-REACTIVE (NON-REACTIVE) 04/06/21 07:13 Hep C Ab Signal/Cutoff 0.10 (<1.00) 04/06/21 07:13 Blood Type O POSITIVE 04/05/21 17:01 Blood Type Recheck O POSITIVE 04/05/21 15:30 Antibody Screen NEGATIVE 04/05/21 17:01 Crossmatch IS Only See Detail 04/05/21 17:01
[2021-04-08] MEDS: POTASSIUM CHLOR 10 MEQ/100 ML 10 MEQ/100 ML BAG IV SCH ×4 (15:46→20:37)
[2021-04-08] MEDS ORDERED: MIDAZOLAM 2 MG/2 ML VIAL ONE (16:45)
[2021-04-08] MEDS ORDERED: ALBUMIN 25% 12.5 GM/50 ML VIAL IV STA (17:36)
--- NOTE | 2021-04-08 17:58 | ANESTHESIA PROCEDURE NOTE ---
Anesth Central Line Template - Central Line Central Line Preparation: Consent Obtained Central line location: Right IJ Central line type: Triple lumen Central line catheter tip site resides: Superior vena cava (SVC) Central line aftercare: Chlorhexidine disc placed, Secured, Placement confirmed, No pneumothorax, No complications, Bundle checklist complete, Pt tolerated well
--- NOTE | 2021-04-08 18:04 | XRAY Report ---
PROCEDURE: Chest for Line Placement INDICATIONS: line placement TECHNIQUE: One view of the chest was acquired. COMPARISON: CT chest 04/05/2021. FINDINGS: Surgical changes and devices: Right IJ central venous line with the catheter tip in the right atrium, new. Lungs and pleura: No pleural effusions or pneumothorax. Mild airspace opacity in the right lung. Mediastinum: Mediastinal contours appear normal. Heart size is normal. Bones and chest wall: No suspicious bony lesions. Overlying soft tissues appear unremarkable. IMPRESSION: Right IJ central venous line with the catheter tip in the right atrium. Mild right lung airspace opacity. Reviewed by: Catalino Sykes MD on 04/08/2021 5:03 PM CHRIS Approved by: Catalino Sykes MD on 04/08/2021 5:03 PM CHRIS Station ID: [id number]
[2021-04-08] MEDS: SODIUM CHLORIDE FLUSH 0.9% 10 ML SYRINGE IVP SCH (18:18)
[2021-04-08] MEDS: HYDROmorphone 0.5 MG/0.5 ML SYRINGE IVP PRN (19:45)
[2021-04-08] MEDS: D5NS W/20 MEQ KCL 1,000 ML IV SCH ×2 (19:47→22:36)
[2021-04-08] MEDS: SODIUM CHLORIDE FLUSH 0.9% 10 ML SYRINGE IVP PRN (19:47)
[2021-04-08 22:37] LABS: SMOOTH MUSCLE IGG AB <20 U
[2021-04-08 23:21] LABS: LIVER KIDNEY MICROSOME AB <20.0 U
[2021-04-09] MEDS: SODIUM CHLORIDE FLUSH 0.9% 10 ML SYRINGE IVP SCH ×3 (03:31→18:26)
[2021-04-09] MEDS: HYDROmorphone 0.5 MG/0.5 ML SYRINGE IVP PRN (03:33)
[2021-04-09] MEDS: D5NS W/20 MEQ KCL 1,000 ML IV SCH ×2 (03:37→09:13)
[2021-04-09] MEDS: SODIUM CHLORIDE FLUSH 0.9% 10 ML SYRINGE IVP PRN (05:43)
[2021-04-09 05:52] LABS: BASOPHILS % (AUTO) 0.4 %; EOSINOPHILS % (AUTO) 0.6 %; HCT - HEMATOCRIT 20.6 % (37.0-47.0); LYMPHOCYTES % (AUTO) 10.2 %; MEAN CORPUSCULAR HGB CONC 33.5 g/dL (32.0-36.0); MEAN CORPUSCULAR VOLUME 101.5 fL (81.0-99.0); MEAN PLATELET VOLUME 10.2 fL (7.9-10.8); MONOCYTES % (AUTO) 8.5 %; NEUTROPHILS % (AUTO) 78.4 %; PLT - PLATELET COUNT 89 10^3/uL (130-450); RED BLOOD COUNT 2.03 10^6/uL (4.20-5.40); RED CELL DISTRIBUTION WIDTH 19.5 % (12.0-15.0); WHITE BLOOD COUNT 18.3 x10^3/uL (4.8-10.8)
[2021-04-09 05:55] LABS: CALCIUM, IONIZED 1.07 mmol/L (1.15-1.33); VBG PH 7.48 (7.31-7.41)
[2021-04-09] MEDS: LACTULOSE 10 GM /15 ML UDC PR SCH ×3 (06:06→22:00)
[2021-04-09 06:09] LABS: ALBUMIN/GLOBULIN RATIO 0.7 (1.0-2.2); BILIRUBIN,TOTAL 9.4 mg/dL (0.2-1.0); CALCIUM 7.9 mg/dL (8.5-10.3); CREATININE 1.3 mg/dL (0.4-1.0); MAGNESIUM 2.5 mg/dL (1.7-2.8); PHOSPHORUS 3.2 mg/dL (2.5-4.6); POTASSIUM 3.9 mmol/L (3.5-5.0); TOTAL PROTEIN 4.9 g/dL (6.7-8.2)
[2021-04-09 06:11] LABS: INR 1.7 (0.8-1.2); PT - PROTHROMBIN TIME 18.9 secs (9.9-12.6)
[2021-04-09 06:12] LABS: VANCOMYCIN,RANDOM 10.1 ug/mL
[2021-04-09 06:15] LABS: HGB - HEMOGLOBIN 6.9 g/dL (12.0-16.0)
[2021-04-09 06:16] LABS: ABNORMAL LYMPHS % (MANUAL) 0 %
[2021-04-09 06:35] LABS: BAND NEUTROPHILS % (MANUAL) 4 %; EOSINOPHILS # (MANUAL) 0.2 10^3/uL (0-0.7); LYMPHOCYTES # (MANUAL) 1.8 10^3/uL (1.5-3.5); LYMPHOCYTES % (MANUAL) 10 %; MONOCYTES # (MANUAL) 0.9 10^3/uL (0.0-1.0); NEUTROPHILS # (MANUAL) 15.4 10^3/uL (1.5-6.6)
[2021-04-09 06:36] LABS: DIFFERENTIAL COMMENT MANUAL DIFFERENTIAL; PLATELET ESTIMATE, MANUAL DECREASED (<130,000) (NORMAL)
[2021-04-09] MEDS ORDERED: MIN OIL/DIMETHICON/COCONUT OIL 92 GM TUBE TOP PRN (07:07)
[2021-04-09] MEDS ORDERED: VANCOMYCIN INJ 1 GM, VANCOMYCIN INJ 500 MG in SODIUM CHLORIDE 0.9% 500 ML IV SCH ×6 (10:00)
[2021-04-09] MEDS: PANTOPRAZOLE 40 MG VIAL IVP SCH ×2 (10:07→20:54)
[2021-04-09] MEDS: rifAXIMin 550 MG TABLET PO SCH ×2 (11:14→20:54)
[2021-04-09 12:27] LABS: ANA SCREEN NEGATIVE (NEGATIVE)
[2021-04-09] MEDS: MULTIVITAMIN 10 ML, THIAMINE INJ 100 MG, FOLIC ACID INJ 1 MG in SODIUM CHLORIDE 0.9% 1,... IV SCH (14:43)
--- NOTE | 2021-04-09 17:29 | PROVIDER PROGRESS NOTE ---
Assessment/Plan - Problem List (1) Hypotension Assessment/Plan: She has been hypotensive in the 80s and 90s systolic since admission. She was started on midodrine which she only took for half a day and then developed nausea and vomiting the very next day. She got 1 day of banana bag, then some extra saline. She got 1 amp Albumen Because she is n.p.o. now, due to coffee-ground emesis, nausea and vomiting, will resume iv fluids with banana bag containing NS. Transfer the unit the patient to the ICU, [place] for accurate I's and O's, she may need iv pressors. Etiology of persistent hypotension is unclear; possibly due to end-stage liver disease since she does not appear to have septic shock (lactic acid normal), not cardiogenic shock from her presentation and normal troponins. Will consider iv Albumen Plan is to transfer to higher level of care hospital with hepatology, gastroenterology, Air Quality Technician. I reached out to [facility] for transfer and they had no beds yesterday, she would be in a queue. I called Spanish and there were no beds but I spoke with GI who heard the entire case. The GI recommended iv Albumen and to have IR do paracentesis to check for SBP and then start antibiotics, and get Echo to evaluate for alcoholic cardiomyopathy and to eventually do endoscopy. I informed them that with an INR of 1.9 our general surgeons do not feel comfortable doing endoscopies here, especially if she may have esophageal varices. I have reached out to [facility] and she is in a queue, they have no open beds. (2) Gram-positive bacteremia Assessment/Plan: WBC elevated on admission at 26.5. Cause was not readily apparent at admission, since she was afebrile. 1 of 2 blood cultures done at admission is growing GPC and the identification is pending. She has been started on IV Vanco empirically (3) Nausea & vomiting Assessment/Plan: Vomiting has stopped but she still has nausea. This could be from gastritis or from many new medications started this hospitalization since she was on no prescription meds before this or from an acute GI bleed. Continue with antiemetics as needed, trying to avoid those that are liver metabolized (4) UGI bleed Assessment/Plan: Coffee-ground emesis started 2 days ago, none for 12 hours. She has been started on IV Protonix twice daily. Steroids were stopped Her essential po meds were changed to iv formulations Her regular diet has been stopped, she is n.p.o. except ice chips. She requests sawyer shireen which will be okay'd EGD is hign risk if done here at a critical Access Hospital, our Gen Suegeons are not comfortable with this. Continue with rifaximin. I reached out to have her accepted at a higher level of care hospital that have a It Web Development Consultant and GI specialists. Patient was told of this plan yesterday and she agrees. Follow H/H Q 8-12 hours and transfuse if Hgb under 7. PT was originally ordered for evaluation, but then she had findings of bacteremia and then next day had coffee-ground emesis, thus no PT has started yet (5) Alcoholic hepatitis with ascites Assessment/Plan: She has a more distended abdomen with probably more ascites since admission and worsened leg edema since admission The etiology of her LFT abn is most likely related to Alcohol. -AST 129/ALT 44 > 2:1, and GGT is elevated 63 and there were bottles of alcohol found at her home, even though she denies ETOH use. Her Meld score is 31 points. (Estimated mortality 52.6% in 3 months). Her Discriminant factor is 55.2 and she was given steroids. - Acute hepatitis panel-are all neg - Alpha-fetoprotein, anti-Lane antibodies, anti-Ro antibodies, ceruloplasmin, EMPERATRIZ are pending. - Alpha1 antitryp not available - Abdominal Ultrasound 04/06: Gallbladder prominent distention w/ lobulated intraluminal filling defet 7.7 x 3.1 x 4.1; suspicious of biliary sludge. GBW thickening up to 0.7cm No IHDD + EHDD. Extrahepatic bile duct caliber up to 0.7 cm. Normal 6-7 mgg or less or 10 mm post choley. Moderate ascites Nodular cirrhotic liver without discrete mass. Distention of gallbladder w/ gallbladder wall thickening; no specific in context of ascites and liver disease. Cannot r/o cholecystitis/ clinical correlation recommended - [facility]CP [facility], Dr Milli Comer was contacted 04/06; Dr Comer is expected out of office chantel Vivar 04/10/21, but records sent by our [facility] to Office [phone]. Patient last seen in 2019 and PMH notable only for B12 deficiency, bunions, "left ankle pain" and nocturia Plan is to have her transferred to a higher level of care hospital that has hepatology and GI specialists (6) Coagulopathy Assessment/Plan: Her INR was 1.9 on admission, 1.7 yesterday, consistent with liver dysfunction and synthesis problems. We will follow INR Will give Vitamin K for elevated INR, in order to proceded with US guided paracentesis. I discussed this today with Dr Hernandez in DI. (7) Alcohol abuse Assessment/Plan: On admission pt had flat affect and slow speech. After that she has become more alert, but is lethargic. Patient denied alcohol use or abuse to the admitting doctor. Her blood alc level was zero at admission but she had been on the ground for unknown period of time, not able to drink. AST 129, ALT 44, and GGT was 63. CIWA score 4. Labs show an elevated GGT and this pattern of LFTs is consistent with alcohol abuse. Social work to see the patient to help determine if she will discuss her alcohol use. On CIWA Protocol, scoring 4-5. She is again on banana bag for IV fluids since she is n.p.o. again from the nausea/vomiting. Lactulose and Rifaximin started for encephalopathy (8) Anemia Qualifiers: Anemia type: unspecified type Qualified Code(s): D64.9 - Anemia, unspecified Assessment/Plan: At admission she got 2 units PRBCs, hemoglobin improved. Today Hgb again down to 6.9 She then started to have coffee-ground emesis and with the CT report of distal esophageal thickening, she may have bleeding esophageal varices. She is not a candidate for endoscopy here at this critical access hospital with no GI specialist. She will get 1U PRBCs transfused today Continue to monitor her hemoglobin q 8- 12 hours, transfuse if Hgb <7 (9) Acute kidney injury Assessment/Plan: She had evidence of HEATHER from ATN, volume depletion and hypotension on admission. Continue with IV fluids since her diet is now n.p.o. because of nausea and vomiting and coffee-ground emesis. Avoid nephrotoxins. Follow BMP daily (10) Hyponatremia Assessment/Plan: This is consistent with her alcohol abuse diagnosis. Continue with fluids containing NS. Follow BMP daily (11) Hypokalemia Assessment/Plan: Likely caused by poor p.o. intake in an alcoholic. Replace with K riders not orally. Follow BMP daily (12) Fall Qualifiers: Encounter type: subsequent encounter Qualified Code(s): W19.XXXD - Unspecified fall, subsequent encounter Assessment/Plan: She was too weak to stand up after falling in her residence, likley from d econditioning and the hypotension. Her serum CK was minimally elevated. - Current Meds Current Meds: Current Medications Generic Name Dose Route Start Last Admin Trade Name Freq PRN Reason Stop Dose Admin Hydromorphone HCl 0.5 mg 04/08/21 15:33 04/09/21 03:33 Hydromorphone 0.5 Mg/0.5 Ml Syringe IVP 0.5 mg Q6H PRN Administration Pain 8 to 10 Multivitamins 10 ml/ Thiamine 1,011.2 mls @ 100 mls/hr 04/08/21 09:00 04/09/21 14:43 HCl 100 mg/ Folic Acid 1 mg/ IV 100 mls/hr Sodium Chloride DAILY BRADLY Administration Potassium Chloride/Dextrose/Sod Cl 1,000 mls @ 100 mls/hr 04/08/21 16:00 0 04/09/21 14:42 D5ns W/20 Meq Kcl IV 0 mls/hr .Q10H BRADLY Infusion Lactulose 10 gm 04/08/21 14:00 04/09/21 14:44 Lactulose 10 Gm /15 Ml Udc FL 10 gm TID BRADLY Administration Ondansetron HCl 4 mg 04/07/21 13:06 04/08/21 09:31 Ondansetron 4 Mg/2 Ml Vial IVP 4 mg Q4HR PRN Administration Nausea / Vomiting Pantoprazole Sodium 40 mg 04/08/21 09:00 04/09/21 10:07 Pantoprazole 40 Mg Vial IVP 40 mg BID BRADLY Administration Rifaximin 550 mg 04/06/21 21:00 04/09/21 11:14 Rifaximin 550 Mg Tablet PO 550 mg BID BRADLY Administration Sodium Chloride 10 ml 04/08/21 17:00 04/09/21 10:19 Sodium Chloride Flush 0.9% 10 Ml Syringe IVP 10 ml 0100,0900,1700 BRADLY Administration Sodium Chloride 10 ml 04/08/21 15:33 04/09/21 05:43 Sodium Chloride Flush 0.9% 10 Ml Syringe IVP 20 ml PRN PRN Administration NEEDED PER PROVIDER ORDERS - Lab Result Fish Bone Diagrams: 04/09/21 19:40 04/09/21 05:30 - Additional Planning My Orders: My Active Orders 04/08/21 17:00 Sodium Chloride Flush 0.9% [Normal Saline Flush 0.9%] 10 ml IVP 0100,0900,1700 04/09/21 03:25 Cod Liver Oil/Zinc Oxide [Desitin] 113 gm TOP PRN PRN 04/09/21 07:07 Min Oil/Dimeth/Coconut Oil Crm [Cavilon] 1 applic TOP PRN PRN 04/09/21 08:37 Abdominal Paracentesis [US] Routine Echo Transthoracic Complete [ECHO] Routine 04/09/21 17:00 HEMOGLOBIN AND HEMATOCRIT [HEME] Timed 04/10/21 05:00 AMMONIA [CHEM] DAILYLAB CALCIUM, IONIZED ([facility]) [BG] DAILYLAB CBC - COMP BLD CT W/AUTO DIFF [HEME] DAILYLAB CMP [COMPREHENSIVE METABOLIC PANEL] [CHEM] DAILYLAB 04/10/21 10:00 Vancomycin Inj [Vancomycin] 1 gm Vancomycin Inj [Vancomycin Hcl] 500 mg Sodium Chloride 0.9% [Normal Saline 0.9%] 500 ml IV Q24H 04/11/21 05:00 AMMONIA [CHEM] DAILYLAB CALCIUM, IONIZED ([facility]) [BG] DAILYLAB CBC - COMP BLD CT W/AUTO DIFF [HEME] DAILYLAB CMP [COMPREHENSIVE METABOLIC PANEL] [CHEM] DAILYLAB 04/12/21 05:00 AMMONIA [CHEM] DAILYLAB CBC - COMP BLD CT W/AUTO DIFF [HEME] DAILYLAB CMP [COMPREHENSIVE METABOLIC PANEL] [CHEM] DAILYLAB 04/13/21 05:00 CBC - COMP BLD CT W/AUTO DIFF [HEME] DAILYLAB CMP [COMPREHENSIVE METABOLIC PANEL] [CHEM] DAILYLAB Objective Vital Signs: Vital Signs - 24 hr 04/08/21 04/08/21 04/08/21 17:30 18:00 19:00 Temperature Heart Rate Heart Rate [ 83 86 87 Monitoring electrodes] Respiratory 16 16 13 Rate Blood Pressure Blood Pressure 92/59 L 91/50 L 100/57 L [Left Brachial artery] O2 Saturation 93 92 97 04/08/21 04/08/21 04/08/21 20:00 21:00 22:00 Temperature Heart Rate Heart Rate [ 80 78 79 Monitoring electrodes] Respiratory 16 15 16 Rate Blood Pressure Blood Pressure 88/50 L 93/50 L 93/57 L [Left Brachial artery] O2 Saturation 95 96 98 04/08/21 04/08/21 04/09/21 22:42 23:00 00:00 Temperature 37.1 C Heart Rate Heart Rate [ 78 81 Monitoring electrodes] Respiratory 17 18 Rate Blood Pressure Blood Pressure 92/52 L 94/53 L [Left Brachial artery] O2 Saturation 98 97 04/09/21 04/09/21 04/09/21 00:54 01:00 02:00 Temperature 35.9 C L Heart Rate Heart Rate [ 81 78 Monitoring electrodes] Respiratory 19 16 Rate Blood Pressure Blood Pressure 100/65 92/54 L [Left Brachial artery] O2 Saturation 96 96 04/09/21 04/09/21 04/09/21 03:00 04:00 05:00 Temperature 35.7 C L Heart Rate Heart Rate [ 84 75 75 Monitoring electrodes] Respiratory 22 15 16 Rate Blood Pressure Blood Pressure 90/58 L 88/51 L 86/53 L [Left Brachial artery] O2 Saturation 93 98 98 04/09/21 04/09/21 04/09/21 06:00 07:00 09:41 Temperature 36.4 C L Heart Rate 83 Heart Rate [ 76 78 Monitoring electrodes] Respiratory 15 18 22 Rate Blood Pressure 95/56 L Blood Pressure 91/49 L 96/54 L [Left Brachial artery] O2 Saturation 97 98 04/09/21 04/09/21 04/09/21 10:05 11:00 12:00 Temperature 36.2 C L Heart Rate 83 Heart Rate [ 84 87 88 Monitoring electrodes] Respiratory 20 17 20 Rate Blood Pressure 92/48 L Blood Pressure 92/48 L 91/54 L 92/53 L [Left Brachial artery] O2 Saturation 97 96 99 04/09/21 04/09/21 04/09/21 13:12 14:26 14:35 Temperature 36.2 C L 36.2 C L 36.4 C L Heart Rate 84 84 87 Heart Rate [ Monitoring electrodes] Respiratory 20 20 23 Rate Blood Pressure 103/59 L 92/48 L Blood Pressure [Left Brachial artery] O2 Saturation 98 04/09/21 04/09/21 14:46 14:55 Temperature 96.2 C H 96.4 C H Heart Rate Heart Rate [ 86 87 Monitoring electrodes] Respiratory 22 22 Rate Blood Pressure Blood Pressure 95/52 L 91/50 L [Left Brachial artery] O2 Saturation 95 95 Oxygen O2 Source Nasal cannula I&O (Last 24 Hrs): Intake and Output Totals x24h 04/07/21 04/08/21 04/09/21 23:59 23:59 23:59 Intake Total 2320 2827.642 5101.333 Output Total 1225 690 256 Balance 1095 234.669 4908.333 General: Alert, Other (Icteric. Lethargic but awakens to name and converses normally) HEENT: Atraumatic, Other (Icteric. Hirsute.) Neck: Supple, Other ((+) JVD) Neuro: Alert, Non Focal, Other (Lethargic) Cardiovascular: Regular rate, No murmurs Respiratory: No respiratory distress, Breath sounds nml Abdomen: Soft (Distended, hypertympanic, mildly tender diffusely, no guarding or rebound.) Extremities: Other (4+ edema to upper thighs.) - Results Results: Laboratory Results WBC 18.3 x10^3/uL (4.8-10.8) H 04/09/21 05:30 RBC 2.03 10^6/uL (4.20-5.40) L 04/09/21 05:30 Hgb 6.9 g/dL (12.0-16.0) L* 04/09/21 05:30 Hct 20.6 % (37.0-47.0) L 04/09/21 05:30 MCV 101.5 fL (81.0-99.0) H 04/09/21 05:30 MCH 34.0 pg (27.0-31.0) H 04/09/21 05:30 MCHC 33.5 g/dL (32.0-36.0) 04/09/21 05:30 RDW 19.5 % (12.0-15.0) H 04/09/21 05:30 Plt Count 89 10^3/uL (130-450) L 04/09/21 05:30 MPV 10.2 fL (7.9-10.8) 04/09/21 05:30 Reticulocyte % (Auto) 2.64 % (0.5-2.3) H 04/06/21 14:46 Neut # (Auto) Not Reportable 04/09/21 05:30 Lymph # (Auto) Not Reportable 04/09/21 05:30 [place] # (Auto) Not Reportable 04/09/21 05:30 Eos # (Auto) Not Reportable 04/09/21 05:30 Baso # (Auto) Not Reportable 04/09/21 05:30 Absolute Nucleated RBC Not Reportable 04/09/21 05:30 Total Counted 100 04/09/21 05:30 Band Neuts % (Manual) 4 % (0-10) 04/09/21 05:30 Abnorm Lymph % (Manual) 0 % 04/09/21 05:30 Nucleated RBC % Not Reportable 04/09/21 05:30 Neutrophils # (Manual) 15.4 10^3/uL (1.5-6.6) H 04/09/21 05:30 Lymphocytes # (Manual) 1.8 10^3/uL (1.5-3.5) 04/09/21 05:30 Monocytes # (Manual) 0.9 10^3/uL (0.0-1.0) 04/09/21 05:30 Eosinophils # (Manual) 0.2 10^3/uL (0-0.7) 04/09/21 05:30 Basophils # (Manual) 0.0 10^3/uL (0-0.1) 04/09/21 05:30 Differential Comment MANUAL DIFFERENTIAL 04/09/21 05:30 Manual Slide Review Indicated 04/06/21 07:13 WBC Morphology 1+ TOXIC GRANULATION (NORMAL) 04/08/21 07:11 Platelet Estimate DECREASED (<130,000) (NORMAL) 04/09/21 05:30 Platelet Morphology NORMAL APPEARANCE (NORMAL) 04/08/21 07:11 RBC Morph Micro Appear 2+ ANISOCYTOSIS (NORMAL) 1+ HYPOCHROMASIA (NORMAL) 1+ OVALOCYTES (NORMAL) 04/09/21 05:30 RBC Morph Micro Appear 2+ ANISOCYTOSIS (NORMAL) 1+ HYPOCHROMASIA (NORMAL) 1+ OVALOCYTES (NORMAL) 04/09/21 05:30 RBC Morph Micro Appear 2+ ANISOCYTOSIS (NORMAL) 1+ HYPOCHROMASIA (NORMAL) 1+ OVALOCYTES (NORMAL) 04/09/21 05:30 Absolute Retic 0.063 10^6/uL (0.020-0.110) 04/06/21 14:46 PT 18.9 secs (9.9-12.6) H 04/09/21 05:30 INR 1.7 (0.8-1.2) H 04/09/21 05:30 VBG pH 7.480 (7.31-7.41) H 04/09/21 05:30 Ionized Calcium 1.07 mmol/L (1.15-1.33) L 04/09/21 05:30 Sodium 126 mmol/L (135-145) L 04/09/21 05:30 Potassium 3.9 mmol/L (3.5-5.0) 04/09/21 05:30 Chloride 92 mmol/L (101-111) L 04/09/21 05:30 Carbon Dioxide 25 mmol/L (21-32) 04/09/21 05:30 Anion Gap 9.0 (6-13) 04/09/21 05:30 BUN 40 mg/dL (6-20) H 04/09/21 05:30 Creatinine 1.3 mg/dL (0.4-1.0) H 04/09/21 05:30 Estimated GFR (MDRD) 42 (>89) L 04/09/21 05:30 Glucose 108 mg/dL (70-100) H 04/09/21 05:30 POC Whole Bld Glucose 97 mg/dL (70 - 100) 04/09/21 16:29 Lactic Acid 1.8 mmol/L (0.5-2.2) 04/05/21 17:01 Calcium 7.9 mg/dL (8.5-10.3) L 04/09/21 05:30 Phosphorus 3.2 mg/dL (2.5-4.6) 04/09/21 05:30 Magnesium 2.5 mg/dL (1.7-2.8) 04/09/21 05:30 Iron 76 ug/dL (28-170) 04/07/21 07:04 TIBC 164 ug/dL (250-450) L 04/07/21 07:04 % Saturation 46 % (20-50) 04/07/21 07:04 Transferrin 117 mg/dL (192-382) L 04/07/21 07:04 Ferritin 124.9 ng/mL (11.0-306.8) 04/06/21 07:13 Total Bilirubin 9.4 mg/dL (0.2-1.0) H 04/09/21 05:30 Direct Bilirubin 5.9 mg/dL (0.1-0.5) H 04/06/21 07:13 GGT 163 IU/L (8-38) H 04/06/21 14:46 AST 108 IU/L (10-42) H 04/09/21 05:30 ALT 36 IU/L (10-60) 04/09/21 05:30 Alkaline Phosphatase 170 IU/L (42-121) H 04/09/21 05:30 Ammonia 61.9 umol/L (7-35) H 04/09/21 05:30 Lactate Dehydrogenase 229 IU/L (91-225) H 04/06/21 14:46 Total Creatine Kinase 156 IU/L (22-269) 04/05/21 15:30 Total Protein 4.9 g/dL (6.7-8.2) L 04/09/21 05:30 Albumin 2.0 g/dL (3.2-5.5) L 04/09/21 05:30 Globulin 2.9 g/dL (2.1-4.2) 04/09/21 05:30 Albumin/Globulin Ratio 0.7 (1.0-2.2) L 04/09/21 05:30 Lipase 19 U/L (22-51) L 04/05/21 15:30 Vitamin B12 3187 pg/mL (180-914) H 04/07/21 07:04 Folate 7.05 ng/mL (5.90 - >24.8) 04/07/21 07:04 Urine Color DARK YELLOW 04/06/21 15:36 Urine Clarity CLEAR (CLEAR) 04/06/21 15:36 Urine pH PH (5.0-7.5) 04/06/21 15:36 Ur Specific [place] (1.002-1.030) 04/06/21 15:36 Urine Protein NEGATIVE mg/dL (NEGATIVE) 04/06/21 15:36 Urine Glucose (UA) NEGATIVE mg/dL (NEGATIVE) 04/06/21 15:36 Urine Ketones mg/dL (NEGATIVE) 04/06/21 15:36 Urine Occult Blood TRACE-INTA (NEGATIVE) 04/06/21 15:36 Urine Nitrite (NEGATIVE) 04/06/21 15:36 Urine Bilirubin LARGE (NEGATIVE) H 04/06/21 15:36 Urine Urobilinogen E.U./dL (NORMAL) 04/06/21 15:36 Ur Leukocyte Esterase NEGATIVE (NEGATIVE) 04/06/21 15:36 Urine RBC 0-5 /HPF (0-5) 04/06/21 15:36 Urine WBC 0-3 /HPF (0-5) 04/06/21 15:36 Ur Squamous Epith Cells MANY Squamous (<= Few) H 04/06/21 15:36 Urine Bacteria Moderate /HPF (None Seen) H 04/06/21 15:36 Ur Microscopic Review INDICATED 04/06/21 15:36 Urine Culture Comments NOT INDICATED 04/06/21 15:36 Urine Sodium < 12.0 mmol/L 04/07/21 05:07 Nasal Adenovirus (PCR) NOT DETECTED 04/05/21 18:26 Nasal B. parapertussis DNA (PCR) NOT DETECTED 04/05/21 18:26 Nasal Coronavir 229E PCR NOT DETECTED 04/05/21 18:26 Nasal Coronavir HKU1 PCR NOT DETECTED 04/05/21 18:26 Nasal Coronavir NL63 PCR NOT DETECTED 04/05/21 18:26 Nasal Coronavir OC43 PCR NOT DETECTED 04/05/21 18:26 Nasal Enterovir/Rhinovir PCR NOT DETECTED 04/05/21 18:26 Nasal Influenza B PCR NOT DETECTED 04/05/21 18:26 Nasal Influenza A PCR NOT DETECTED 04/05/21 18:26 Nasal Parainfluen 1 PCR NOT DETECTED 04/05/21 18:26 Nasal Parainfluen 2 PCR NOT DETECTED 04/05/21 18:26 Nasal Parainfluen 3 PCR NOT DETECTED 04/05/21 18:26 Nasal Parainfluen 4 PCR NOT DETECTED 04/05/21 18:26 Nasal RSV (PCR) NOT DETECTED 04/05/21 18:26 Nasal Screen MRSA (PCR) NEGATIVE (NEGATIVE) 04/08/21 16:55 Nasal B.pertussis DNA PCR NOT DETECTED 04/05/21 18:26 Nasal C.pneumoniae (PCR) NOT DETECTED 04/05/21 18:26 Morgan Human Metapneumo PCR NOT DETECTED 04/05/21 18:26 Nasal M.pneumoniae (PCR) NOT DETECTED 04/05/21 18:26 Nasal SARS-CoV-2 (PCR) NOT DETECTED 04/05/21 18:26 Last Dose Date UNKNOWN 04/09/21 05:30 Last Dose Time UNKNOWN 04/09/21 05:30 Random Vancomycin 10.1 ug/mL 04/09/21 05:30 Urine Opiates Screen NEGATIVE (NEGATIVE) 04/06/21 06:40 Ur Oxycodone Screen NEGATIVE (NEGATIVE) 04/06/21 06:40 Urine Methadone Screen NEGATIVE (NEGATIVE) 04/06/21 06:40 Ur Propoxyphene Screen NEGATIVE (NEGATIVE) 04/06/21 06:40 Ur Barbiturates Screen NEGATIVE (NEGATIVE) 04/06/21 06:40 Ur Tricyclics Screen NEGATIVE (NEGATIVE) 04/06/21 06:40 Ur Phencyclidine Scrn NEGATIVE (NEGATIVE) 04/06/21 06:40 Ur Amphetamine Screen NEGATIVE (NEGATIVE) 04/06/21 06:40 U Methamphetamines Scrn NEGATIVE (NEGATIVE) 04/06/21 06:40 U Benzodiazepines Scrn NEGATIVE (NEGATIVE) 04/06/21 06:40 Urine Cocaine Screen NEGATIVE (NEGATIVE) 04/06/21 06:40 U Cannabinoids Screen POSITIVE (NEGATIVE) H 04/06/21 06:40 Ethyl Alcohol < 5.0 mg/dL 04/05/21 15:30 EMPERATRIZ Screen NEGATIVE (NEGATIVE) 04/06/21 07:13 Smooth Muscle IgG Ab <20 U 04/06/21 07:13 Livr/Kid Microsome 1 Ab <20.0 U 04/06/21 07:13 Hepatitis A IgM Ab NON-REACTIVE (NON-REACTIVE) 04/06/21 07:13 Hep Bs Antigen NON-REACTIVE (NON-REACTIVE) 04/06/21 07:13 Hep B Core IgM Ab NON-REACTIVE (NON-REACTIVE) 04/06/21 07:13 Hepatitis C Antibody NON-REACTIVE (NON-REACTIVE) 04/06/21 07:13 Hep C Ab Signal/Cutoff 0.10 (<1.00) 04/06/21 07:13 Blood Type O POSITIVE 04/09/21 06:59 Blood Type Recheck O POSITIVE 04/05/21 15:30 Antibody Screen NEGATIVE 04/09/21 06:59 Crossmatch IS Only See Detail 04/09/21 06:59
[2021-04-09 19:50] LABS: HCT - HEMATOCRIT 27.8 % (37.0-47.0); HGB - HEMOGLOBIN 9.4 g/dL (12.0-16.0)
[2021-04-09] MEDS ORDERED: PHYTONADIONE INJ (ADULT) 5 MG in SODIUM CHLORIDE 0.9% 50 ML IV ONE (20:29)
[2021-04-09] MEDS ORDERED: PIPERACILLIN/TAZOBACTAM 4.5 GM in SODIUM CHLORIDE 0.9% MINIBAG 100 ML IV ONE (23:00)
[2021-04-09] MEDS ORDERED: ALBUMIN 25% 12.5 GM/50 ML VIAL IV STA (23:12)
[2021-04-09] MEDS ORDERED: SODIUM CHLORIDE 0.9% 500 ML IV ONE (23:12)
[2021-04-10] MEDS ORDERED: OCTREOTIDE 100 MCG/ML VIAL ONE (00:21)
[2021-04-10] MEDS: OCTREOTIDE 500 MCG in SODIUM CHLORIDE 0.9% 100ML 99 ML IV SCH ×3 (00:28→19:31)
[2021-04-10] MEDS: HYDROmorphone 0.5 MG/0.5 ML SYRINGE IVP PRN (00:35)
[2021-04-10] MEDS: SODIUM CHLORIDE FLUSH 0.9% 10 ML SYRINGE IVP SCH ×3 (02:17→18:41)
[2021-04-10] MEDS: PIPERACILLIN/TAZOBACTAM 3.375 GM in SODIUM CHLORIDE 0.9% MINIBAG 100 ML IV SCH ×3 (03:18→19:29)
[2021-04-10] MEDS: D5NS W/20 MEQ KCL 1,000 ML IV SCH ×3 (03:18→20:16)
[2021-04-10] MEDS ORDERED: PIPERACILLIN/TAZOBACTAM 3.375 GM in SODIUM CHLORIDE 0.9% MINIBAG 100 ML IV SCH (04:00)
[2021-04-10] MEDS: LACTULOSE 10 GM /15 ML UDC PR SCH ×3 (05:14→21:05)
[2021-04-10 05:18] LABS: BASOPHILS % (AUTO) 0.6 %; EOSINOPHILS % (AUTO) 0.8 %; HCT - HEMATOCRIT 28.7 % (37.0-47.0); HGB - HEMOGLOBIN 9.5 g/dL (12.0-16.0); LYMPHOCYTES % (AUTO) 6.2 %; MEAN CORPUSCULAR HEMOGLOBIN 32.2 pg (27.0-31.0); MEAN CORPUSCULAR HGB CONC 33.1 g/dL (32.0-36.0); MEAN CORPUSCULAR VOLUME 97.3 fL (81.0-99.0); MEAN PLATELET VOLUME 10.8 fL (7.9-10.8); MONOCYTES % (AUTO) 9.6 %; NEUTROPHILS % (AUTO) 80.1 %; PLT - PLATELET COUNT 104 10^3/uL (130-450); RED BLOOD COUNT 2.95 10^6/uL (4.20-5.40); RED CELL DISTRIBUTION WIDTH 19.1 % (12.0-15.0); WHITE BLOOD COUNT 22.6 x10^3/uL (4.8-10.8)
[2021-04-10 05:20] LABS: ABNORMAL LYMPHS % (MANUAL) 0 %
[2021-04-10 05:26] LABS: INR 1.7 (0.8-1.2); PT - PROTHROMBIN TIME 19.3 secs (9.9-12.6)
[2021-04-10 05:31] LABS: ALBUMIN 2.3 g/dL (3.2-5.5); ALBUMIN/GLOBULIN RATIO 0.8 (1.0-2.2); BILIRUBIN,TOTAL 12.2 mg/dL (0.2-1.0); CALCIUM 8.2 mg/dL (8.5-10.3); CREATININE 1.2 mg/dL (0.4-1.0); POTASSIUM 4.1 mmol/L (3.5-5.0); TOTAL PROTEIN 5.3 g/dL (6.7-8.2)
[2021-04-10 06:28] LABS: CALCIUM, IONIZED 1.05 mmol/L (1.15-1.33); VBG PH 7.428 (7.31-7.41)
[2021-04-10 06:52] LABS: BAND NEUTROPHILS % (MANUAL) 5 %; DIFFERENTIAL COMMENT MANUAL DIFFERENTIAL; EOSINOPHILS # (MANUAL) 0.5 10^3/uL (0-0.7); LYMPHOCYTES % (MANUAL) 9 %; MONOCYTES # (MANUAL) 1.8 10^3/uL (0.0-1.0); NEUTROPHILS # (MANUAL) 18.3 10^3/uL (1.5-6.6); PLATELET ESTIMATE, MANUAL DECREASED (<130,000) (NORMAL); RBC MORPHOLOGY (MULTIPLE) NORMAL APPEARANCE (NORMAL)
[2021-04-10] MEDS ORDERED: CALCIUM GLUCONATE 1,000 MG in SODIUM CHLORIDE 0.9% 50 ML IV ONE (08:10)
--- NOTE | 2021-04-10 08:16 | PROVIDER PROGRESS NOTE ---
Subjective - Prog Note Date Prog Note Date: 04/10/21 - Subjective Subjective: Signout from retail tire sales manager received. Overnight her urine output has been dropping. She was given albumin and IV fluid boluses. We went ahead and added Zosyn empirically for the possibility of either spontaneous bacterial peritonitis or the faint hint of cholecystitis on her previous imaging study. She is on octreotide and received 1 unit yesterday for hematemesis. Ammonia level continues to climb. Suggestion of esophageal mass on CT. But that is the lower esophageal thickening that could be either tumor or esophagitis or varices. No more hematemesis. She is received 4 units of packed cells since admission. I was the retail tire sales manager that admitted this patient on her first night. From an encephalopathy perspective she has improved. She is aware of where she is, with the date is, and is much more aware in general. Unfortunately that has made her more aware to the grimace of her situation and she is tearful. She was clueless on the night of admission.She is less jaundiced appearing. Paracentesis was ordered yesterday. Still not done yet. Echocardiogram is essentially normal and slightly hyperdynamic left ventricle. Current Medications - Current Medications Current Medications: Active Medications Hydromorphone HCl (Hydromorphone 0.5 Mg/0.5 Ml Syringe) 0.5 mg IVP Q6H PRN PRN Reason: Pain 8 to 10 Last Admin: 04/10/21 00:35 Dose: 0.5 mg Documented by: Promethazine HCl 25 mg/ Sodium (Chloride) 51 mls @ 100 mls/hr IV Q6H PRN PRN Reason: Nausea / Vomiting Multivitamins 10 ml/ Thiamine HCl 100 mg/ Folic Acid 1 mg/Sodium Chloride 1,011.2 mls @ 100 mls/hr IV DAILY [facility] Last Infusion: 04/10/21 03:18 Dose: Infused Documented by: Potassium Chloride/Dextrose/Sod Cl (D5ns W/20 Meq Kcl) 1,000 mls @ 100 mls/hr IV .Q10H [facility] Last Admin: 04/10/21 03:18 Dose: 100 mls/hr Documented by: Vancomycin HCl 1 gm/Vancomycin HCl 500 mg/ Sodium Chloride 500 mls @ 250 mls/hr IV Q24H [facility] Norepinephrine Bitartrate 8 mg (/ Dextrose) 250 mls @ 15 mls/hr IV .[id number] [facility]; Protocol Last Titration: 04/10/21 05:00 Dose: 8 mcg/min, 15 mls/hr Documented by: Octreotide Acetate 500 mcg/ (Sodium Chloride) 100 mls @ 10 mls/hr IV .Q10H [facility] Last Admin: 04/10/21 00:28 Dose: 50 mcg/hr, 10 mls/hr Documented by: Piperacillin Sod/Tazobactam (Sod 3.375 gm/ Sodium Chloride) 100 mls @ 25 mls/hr IV Q8H [facility] Last Admin: 04/10/21 03:18 Dose: 25 mls/hr Documented by: Calcium Gluconate 1,000 mg/ (Sodium Chloride) 60 mls @ 50 mls/hr IV ONCE ONE; Protocol Stop: 04/10/21 09:21 Lactulose (Lactulose 10 Gm /15 Ml Udc) [address] TID [facility] Last Admin: 04/10/21 05:14 Dose: 10 gm Documented by: Lorazepam (Lorazepam 2 Mg/Ml Vial) 2 mg IVP Q30M PRN; Protocol PRN Reason: CIWA >8 Mineral Oil (Min Oil/Dimethicon/Coconut Oil 92 Gm Tube) 1 applic TOP PRN PRN PRN Reason: Skin Care Ondansetron HCl (Ondansetron 4 Mg/2 Ml Vial) 4 mg IVP Q4HR PRN PRN Reason: Nausea / Vomiting Last Admin: 04/08/21 09:31 Dose: 4 mg Documented by: Pantoprazole Sodium (Pantoprazole 40 Mg Vial) 40 mg IVP BID [facility] Last Admin: 04/09/21 20:54 Dose: 40 mg Documented by: Prochlorperazine Edisylate (Prochlorperazine 10 Mg/2 Ml Vial) 10 mg IVP Q6HR PRN PRN Reason: Nausea / Vomiting Rifaximin (Rifaximin 550 Mg Tablet) 550 mg PO BID [facility] Last Admin: 04/09/21 20:54 Dose: 550 mg Documented by: Sodium Chloride (Sodium Chloride Flush 0.9% 10 Ml Syringe) 10 ml IVP 0100,0900,1700 [facility] Last Admin: 04/10/21 02:17 Dose: 10 ml Documented by: Sodium Chloride (Sodium Chloride Flush 0.9% 10 Ml Syringe) 10 ml IVP PRN PRN PRN Reason: NEEDED PER PROVIDER ORDERS Last Admin: 04/09/21 05:43 Dose: 20 ml Documented by: Zinc Oxide (Cod Liver Oil/Zinc Oxide 113 Gm Tube) 113 gm TOP PRN PRN PRN Reason: Skin Care No Known Home Medications 04/08/21 Objective - Vital Signs/Intake & Output Reviewed Vital Signs: Yes Vital Signs: Vital Signs x48h Temp Pulse Resp BP Pulse Ox 04/10/21 07:00 92 20 122/71 95 04/10/21 06:00 92 18 113/63 95 04/10/21 05:00 36.6 C 96 26 H 123/83 H 94 04/10/21 04:00 95 21 113/66 95 04/10/21 03:00 94 20 110/58 L 94 04/10/21 02:00 94 19 111/55 L 94 04/10/21 01:00 89 18 113/58 L 92 04/10/21 00:30 87 18 118/69 95 04/10/21 00:25 88 18 119/67 95 04/10/21 00:20 88 17 112/63 95 04/10/21 00:15 87 17 115/59 L 96 Intake & Output: Intake & Output 04/07/21 04/08/21 04/09/21 04/10/21 23:59 23:59 23:59 23:59 Intake Total 2320 0879.951 5533.166 1738.95 Output Total 1225 690 379 215 Balance 1095 801.583 0885.166 1523.95 - Objective General Appearance: positive: Alert, Mild distress, Lethargic Eyes Bilateral: positive: PERRL, EOMI ENT: positive: No signs of dehydration, Other (The dry, cracked lips have resolved) Neck: positive: No JVD. negative: Stiff neck Respiratory: positive: No respiratory distress, Other (, Shallow respiration, slow, unlabored). negative: Wheezes, Rales, Rhonchi Cardiovascular: positive: Regular rate & rhythm, Systolic murmur. negative: Gallop/S4, Friction rub Abdomen: positive: Other (Distended, fluid wave, hypoactive bowel sounds, mild achiness diffusely but no specific epigastric. Urine is dark and aileen in the bag.) Skin: positive: Warm, Dry Extremities: positive: Full ROM, Pedal edema Neurologic/Psychiatric: positive: Oriented x3 (But not specifically to the day of the week or date. She thinks it is Friday (today is Friday) and that it is the (today is the ) but she knows of March 2021), CN's nml (2- 12), Weakness (Generalized. Does not have the energy to hold up her arms and put out her hands for me to check for asterixis.), Slurred/abnml speech - Lab Results Fish Bones: 04/10/21 04:20 04/10/21 04:20 Other Labs: Lab Results x24hrs 04/10/21 04/10/21 04/10/21 Range/Units 05:05 04:20 04:20 WBC (4.8-10.8) x10^3/uL RBC (4.20-5.40) 10^6/uL Hgb (12.0-16.0) g/dL Hct (37.0-47.0) % MCV (81.0-99.0) fL MCH (27.0-31.0) pg MCHC (32.0-36.0) g/dL RDW (12.0-15.0) % Plt Count (130-450) 10^3/uL MPV (7.9-10.8) fL Neut # (Auto) Lymph # (Auto) Overton # (Auto) Eos # (Auto) Baso # (Auto) Absolute Nucleated RBC Total Counted Band Neuts % (Manual) (0 - 10) % Abnorm Lymph % (Manual) % Nucleated RBC % Neutrophils # (Manual) (1.5-6.6) 10^3/uL Lymphocytes # (Manual) (1.5-3.5) 10^3/uL Monocytes # (Manual) (0.0-1.0) 10^3/uL Eosinophils # (Manual) (0-0.7) 10^3/uL Basophils # (Manual) (0-0.1) 10^3/uL Differential Comment Platelet Estimate (NORMAL) RBC Morph Micro Appear (NORMAL) PT 19.3 H (9.9-12.6) secs INR 1.7 H (0.8-1.2) VBG pH (7.31-7.41) Ionized Calcium (1.15-1.33) mmol/L Sodium 128 L (135-145) mmol/L Potassium 4.1 (3.5-5.0) mmol/L Chloride 95 L (101-111) mmol/L Carbon Dioxide 22 (21-32) mmol/L Anion Gap 11.0 (6-13) BUN 36 H (6-20) mg/dL Creatinine 1.2 H (0.4-1.0) mg/dL Estimated GFR (MDRD) 46 L (>89) Glucose 131 H (70-100) mg/dL POC Whole Bld Glucose (70 - 100) mg/dL Calcium 8.2 L (8.5-10.3) mg/dL Total Bilirubin 12.2 H (0.2-1.0) mg/dL AST 101 H (10-42) IU/L ALT 39 (10-60) IU/L Alkaline Phosphatase 172 H (42-121) IU/L Ammonia 49.2 H (7-35) umol/L Troponin I High Sens (2.3-14.8) ng/L Total Protein 5.3 L (6.7-8.2) g/dL Albumin 2.3 L (3.2-5.5) g/dL Globulin 3.0 (2.1-4.2) g/dL Albumin/Globulin Ratio 0.8 L (1.0-2.2) EMPERATRIZ Screen (NEGATIVE) Blood Type Antibody Screen Crossmatch IS Only 04/10/21 04/10/21 04/09/21 Range/Units 04:20 04:20 23:33 WBC 22.6 H (4.8-10.8) x10^3/uL RBC 2.95 L (4.20-5.40) 10^6/uL Hgb 9.5 L (12.0-16.0) g/dL Hct 28.7 L (37.0-47.0) % MCV 97.3 (81.0-99.0) fL MCH 32.2 H (27.0-31.0) pg MCHC 33.1 (32.0-36.0) g/dL RDW 19.1 H (12.0-15.0) % Plt Count 104 L (130-450) 10^3/uL MPV 10.8 (7.9-10.8) fL Neut # (Auto) Not Reportable Lymph # (Auto) Not Reportable Overton # (Auto) Not Reportable Eos # (Auto) Not Reportable Baso # (Auto) Not Reportable Absolute Nucleated RBC Not Reportable Total Counted 100 Band Neuts % (Manual) 5 (0 - 10) % Abnorm Lymph % (Manual) 0 % Nucleated RBC % Not Reportable Neutrophils # (Manual) 18.3 H (1.5-6.6) 10^3/uL Lymphocytes # (Manual) 2.0 (1.5-3.5) 10^3/uL Monocytes # (Manual) 1.8 H (0.0-1.0) 10^3/uL Eosinophils # (Manual) 0.5 (0-0.7) 10^3/uL Basophils # (Manual) 0.0 (0-0.1) 10^3/uL Differential Comment MANUAL DIFFERENTIAL Platelet Estimate DECREASED (<130,000) (NORMAL) RBC Morph Micro Appear NORMAL APPEARANCE (NORMAL) PT (9.9-12.6) secs INR (0.8-1.2) VBG pH 7.428 H (7.31-7.41) Ionized Calcium 1.05 L (1.15-1.33) mmol/L Sodium (135-145) mmol/L Potassium (3.5-5.0) mmol/L Chloride (101-111) mmol/L Carbon Dioxide (21-32) mmol/L Anion Gap (6-13) BUN (6-20) mg/dL Creatinine (0.4-1.0) mg/dL Estimated GFR (MDRD) (>89) Glucose (70-100) mg/dL POC Whole Bld Glucose (70 - 100) mg/dL Calcium (8.5-10.3) mg/dL Total Bilirubin (0.2-1.0) mg/dL AST (10-42) IU/L ALT (10-60) IU/L Alkaline Phosphatase (42-121) IU/L Ammonia (7-35) umol/L Troponin I High Sens 17.5 H* (2.3-14.8) ng/L Total Protein (6.7-8.2) g/dL Albumin (3.2-5.5) g/dL Globulin (2.1-4.2) g/dL Albumin/Globulin Ratio (1.0-2.2) EMPERATRIZ Screen (NEGATIVE) Blood Type Antibody Screen Crossmatch IS Only 04/09/21 04/09/21 04/09/21 Range/Units 19:40 16:29 11:16 WBC (4.8-10.8) x10^3/uL RBC (4.20-5.40) 10^6/uL Hgb 9.4 L (12.0-16.0) g/dL Hct 27.8 L (37.0-47.0) % MCV (81.0-99.0) fL MCH (27.0-31.0) pg MCHC (32.0-36.0) g/dL RDW (12.0-15.0) % Plt Count (130-450) 10^3/uL MPV (7.9-10.8) fL Neut # (Auto) Lymph # (Auto) Overton # (Auto) Eos # (Auto) Baso # (Auto) Absolute Nucleated RBC Total Counted Band Neuts % (Manual) (0 - 10) % Abnorm Lymph % (Manual) % Nucleated RBC % Neutrophils # (Manual) (1.5-6.6) 10^3/uL Lymphocytes # (Manual) (1.5-3.5) 10^3/uL Monocytes # (Manual) (0.0-1.0) 10^3/uL Eosinophils # (Manual) (0-0.7) 10^3/uL Basophils # (Manual) (0-0.1) 10^3/uL Differential Comment Platelet Estimate (NORMAL) RBC Morph Micro Appear (NORMAL) PT (9.9-12.6) secs INR (0.8-1.2) VBG pH (7.31-7.41) Ionized Calcium (1.15-1.33) mmol/L Sodium (135-145) mmol/L Potassium (3.5-5.0) mmol/L Chloride (101-111) mmol/L Carbon Dioxide (21-32) mmol/L Anion Gap (6-13) BUN (6-20) mg/dL Creatinine (0.4-1.0) mg/dL Estimated GFR (MDRD) (>89) Glucose (70-100) mg/dL POC Whole Bld Glucose 97 103 H (70 - 100) mg/dL Calcium (8.5-10.3) mg/dL Total Bilirubin (0.2-1.0) mg/dL AST (10-42) IU/L ALT (10-60) IU/L Alkaline Phosphatase (42-121) IU/L Ammonia (7-35) umol/L Troponin I High Sens (2.3-14.8) ng/L Total Protein (6.7-8.2) g/dL Albumin (3.2-5.5) g/dL Globulin (2.1-4.2) g/dL Albumin/Globulin Ratio (1.0-2.2) EMPERATRIZ Screen (NEGATIVE) Blood Type Antibody Screen Crossmatch IS Only 04/09/21 04/06/21 Range/Units 06:59 07:13 WBC (4.8-10.8) x10^3/uL RBC (4.20-5.40) 10^6/uL Hgb (12.0-16.0) g/dL Hct (37.0-47.0) % MCV (81.0-99.0) fL MCH (27.0-31.0) pg MCHC (32.0-36.0) g/dL RDW (12.0-15.0) % Plt Count (130-450) 10^3/uL MPV (7.9-10.8) fL Neut # (Auto) Lymph # (Auto) Overton # (Auto) Eos # (Auto) Baso # (Auto) Absolute Nucleated RBC Total Counted Band Neuts % (Manual) (0 - 10) % Abnorm Lymph % (Manual) % Nucleated RBC % Neutrophils # (Manual) (1.5-6.6) 10^3/uL Lymphocytes # (Manual) (1.5-3.5) 10^3/uL Monocytes # (Manual) (0.0-1.0) 10^3/uL Eosinophils # (Manual) (0-0.7) 10^3/uL Basophils # (Manual) (0-0.1) 10^3/uL Differential Comment Platelet Estimate (NORMAL) RBC Morph Micro Appear (NORMAL) PT (9.9-12.6) secs INR (0.8-1.2) VBG pH (7.31-7.41) Ionized Calcium (1.15-1.33) mmol/L Sodium (135-145) mmol/L Potassium (3.5-5.0) mmol/L Chloride (101-111) mmol/L Carbon Dioxide (21-32) mmol/L Anion Gap (6-13) BUN (6-20) mg/dL Creatinine (0.4-1.0) mg/dL Estimated GFR (MDRD) (>89) Glucose (70-100) mg/dL POC Whole Bld Glucose (70 - 100) mg/dL Calcium (8.5-10.3) mg/dL Total Bilirubin (0.2-1.0) mg/dL AST (10-42) IU/L ALT (10-60) IU/L Alkaline Phosphatase (42-121) IU/L Ammonia (7-35) umol/L Troponin I High Sens (2.3-14.8) ng/L Total Protein (6.7-8.2) g/dL Albumin (3.2-5.5) g/dL Globulin (2.1-4.2) g/dL Albumin/Globulin Ratio (1.0-2.2) EMPERATRIZ Screen NEGATIVE (NEGATIVE) Blood Type O POSITIVE Antibody Screen NEGATIVE Crossmatch IS Only See Detail ABX Reporting Has patient been on IV antibiotics over the past 48 hours?: Yes Assessment/Plan - Problem List (1) Hypotension Impression: She has been hypotensive in the 80s and 90s systolic since admission. She was started on midodrine which she only took for half a day and then developed nausea and vomiting the very next day. She got 1 day of banana bag, then some extra saline. She got 1 amp Albumin as well as transfused 2 units of blood on admission. NPO due to coffee-ground emesis that started after admit, nausea and vomiting, will resume iv fluids with banana bag containing NS. Transfer the unit the patient to the ICU, [facility] for accurate I's and O's, she may need iv pressors. Etiology of persistent hypotension is unclear; possibly due to end-stage liver disease since she does not appear to have septic shock (lactic acid normal), not cardiogenic shock from her presentation and normal troponins. Also consider acute blood loss anemia as cause of low BP. Will consider iv Albumin Plan is to transfer to higher level of care hospital with hepatology, gastroenterology, Energy Sales Consultant. Previous note from [facility]: I reached out to [facility] for transfer and they had no beds yesterday, she would be in a queue. I called [facility] and there were no beds but I spoke with GI who heard the entire case. The GI recommended iv Albumen and to have IR do paracentesis to check for SBP and then start antibiotics, and get Echo to evaluate for alcoholic cardiomyopathy and to eventually do endoscopy. I informed them that with an INR of 1.9 our general surgeons do not feel comfortable doing endoscopies here, especially if she may have esophageal varices. I have reached out to [facility] and she is in a queue, they have no open beds. Echocardiogram is essentially normal with a slight hyperdynamic ventricle. Interventional radiology has not done the paracentesis yet after being ordered yesterday. We will check with them today. She is on empiric antibiotic therapy day #2, meropenem. Plan: Continue Levophed, octreotide, blood transfusions as needed, antibiotics I will reach out to her PCP to see if [facility] could take her. (2) Gram-positive bacteremia Assessment/Plan: WBC elevated on admission at 26.5. Cause was not readily apparent at admission, since she was afebrile. 1 of 2 blood cultures done at admission is growing GPC In the anaerobic bottle. Specimen sent to outside lab for identification. PCR unable to identify. She has been started on IV Vanco empirically (3) Nausea & vomiting Assessment/Plan: Vomiting has stopped but she still has nausea. This could be from gastritis or from many new medications started this hospitalization since she was on no prescription meds before this or from an acute GI bleed. Continue with antiemetics as needed, trying to avoid those that are liver metabolized (4) UGI bleed Assessment/Plan: Coffee-ground emesis started 04/07 ago. None since 04/09. On IV Protonix twice daily. Steroids were stopped Her essential po meds were changed to iv formulations Her regular diet has been stopped, she is n.p.o. except ice chips. She requests sawyer shireen which will be okay'd EGD is hign risk if done here at a critical [facility], our Gen Surgeons are not comfortable with this. Continue with rifaximin. We have reached out to have her accepted at a higher level of care hospital that have a Twist Packer and GI specialists. Patient was told of this plan 04/08 and she agrees. Recommendations per [facility] being followed. Plan: Follow H/H Q 8-12 hours and transfuse if Hgb under 7. PT was originally ordered for evaluation, but then she had findings of bacteremia and then next day had coffee-ground emesis, thus no PT has started yet (5) Alcoholic hepatitis with ascites Assessment/Plan: She has a more distended abdomen with probably more ascites since admission and worsened leg edema since admission The etiology of her LFT abn is most likely related to Alcohol. -AST 129/ALT 44 > 2:1, and GGT is elevated 63 and there were bottles of alcohol found at her home, even though she denies ETOH use. Her Meld score is 31 points. (Estimated mortality 52.6% in 3 months). Her Discriminant factor is 55.2 and she was given steroids. - Acute hepatitis panel-are all neg - Alpha-fetoprotein pending and her anti-Lane antibodies, anti-Ro antibodies, ceruloplasmin, EMPERATRIZ are negative - Alpha1 antitryp not available - Abdominal Ultrasound 04/06: Gallbladder prominent distention w/ lobulated intraluminal filling defet 7.7 x 3.1 x 4.1; suspicious of biliary sludge. GBW thickening up to 0.7cm No IHDD + EHDD. Extrahepatic bile duct caliber up to 0.7 cm. Normal 6-7 mgg or less or 10 mm post choley. Moderate ascites Nodular cirrhotic liver without discrete mass. Distention of gallbladder w/ gallbladder wall thickening; no specific in context of ascites and liver disease. Cannot r/o cholecystitis/ clinical correlation recommended - PCP office at [facility], Dr Milli Comer was contacted 04/06; Dr Comer is expected out of office til today, 04/10/21, with records [place] [facility] [place] [phone]. Patient last seen in 2019 and PMH notable only for B12 deficiency, bunions, "left ankle pain" and nocturia Plan is to have her transferred to a higher level of care hospital that has he patology and GI specialists. I have left message with her PCP to give me a call to update and to see if she can help with transfer. (6) Coagulopathy Assessment/Plan: Her INR was 1.9 on admission, 1.7 yesterday, consistent with liver dysfunction and synthesis problems. We will follow INR Will give Vitamin K for elevated INR, in order to proceded with US guided paracentesis. This was discussed with Dr Hernandez in DI 04/09. I have left a message w Claudia today asking when we would expect the paracentesis to be done. (7) Alcohol abuse Assessment/Plan: On admission pt had flat affect and slow speech. After that she has become more alert, but is lethargic. Patient denied alcohol use or abuse to the admitting doctor. Her blood alc level was zero at admission but she had been on the ground for unknown period of time, not able to drink. AST 129, ALT 44, and GGT was 63. CIWA score 4. Labs show an elevated GGT and this pattern of LFTs is consistent with alcohol abuse. Social work to see the patient to help determine if she will discuss her alcohol use. On CIWA Protocol, scoring 4-5. She is again on banana bag for IV fluids since she is n.p.o. again from the nausea/vomiting. Lactulose and Rifaximin started for encephalopathy (8) Anemia Qualifiers: Anemia type: unspecified type Qualified Code(s): D64.9 - Anemia, unspecified Assessment/Plan: At admission she got 2 units PRBCs, hemoglobin improved. 04/09 Hgb again down to 6.9 She then started to have coffee-ground emesis and with the CT report of distal esophageal thickening, she may have bleeding esophageal varices. She is not a candidate for endoscopy here at this critical access hospital with no GI specialist. She was transfused 1U PRBCs transfused 04/09. Blood bank report states this is #4. Continue to monitor her hemoglobin q 8- 12 hours, transfuse if Hgb <7 (9) Acute kidney injury Assessment/Plan: She had evidence of HEATHER from ATN, volume depletion and hypotension on admission. Her highest creat was 1.8. she is 1.2 today. Plan: Continue with IV fluids since her diet is now n.p.o. because of nausea and vomiting and coffee-ground emesis. Avoid nephrotoxins. Follow BMP daily (10) Hyponatremia 128-130 Assessment/Plan: This is consistent with her alcohol abuse diagnosis. Continue with fluids containing NS. Follow BMP daily (11) Hypokalemia resolved since 9/12 Assessment/Plan: Likely caused by poor p.o. intake in an alcoholic. Replace with K riders not orally. Follow BMP daily (12) Fall Qualifiers: Encounter type: subsequent encounter Qualified Code(s): W19.XXXD - Unspecified fall, subsequent encounter Assessment/Plan: She was too weak to stand up after falling in her residence, likley from deconditioning and the hypotension. Her serum CK was minimally elevated. (5) Anemia Qualifiers: Qualified Code(s): D64.9 - Anemia, unspecified
[2021-04-10] MEDS: rifAXIMin 550 MG TABLET PO SCH ×2 (08:48→21:05)
[2021-04-10] MEDS: PANTOPRAZOLE 40 MG VIAL IVP SCH ×2 (08:48→21:05)
[2021-04-10] MEDS: MULTIVITAMIN 10 ML, THIAMINE INJ 100 MG, FOLIC ACID INJ 1 MG in SODIUM CHLORIDE 0.9% 1,... IV SCH (08:50)
[2021-04-10 09:17] LABS: VANCOMYCIN,TROUGH 18.9 ug/mL (10.0-20.0)
[2021-04-10] MEDS: VANCOMYCIN INJ 1 GM, VANCOMYCIN INJ 500 MG in SODIUM CHLORIDE 0.9% 500 ML IV SCH (10:50)
[2021-04-10] MEDS: COD LIVER OIL/ZINC OXIDE 113 GM TUBE TOP PRN (11:10)
[2021-04-10 14:17] LABS: CERULOPLASMIN 24 mg/dL (18-53)
[2021-04-11] MEDS: SODIUM CHLORIDE FLUSH 0.9% 10 ML SYRINGE IVP SCH ×3 (00:59→18:29)
[2021-04-11] MEDS: PIPERACILLIN/TAZOBACTAM 3.375 GM in SODIUM CHLORIDE 0.9% MINIBAG 100 ML IV SCH ×2 (03:01→14:01)
[2021-04-11] MEDS: HYDROmorphone 0.5 MG/0.5 ML SYRINGE IVP PRN ×2 (03:09→19:15)
[2021-04-11 05:18] LABS: BASOPHILS % (AUTO) 0.7 %; EOSINOPHILS % (AUTO) 1.4 %; HCT - HEMATOCRIT 26.2 % (37.0-47.0); HGB - HEMOGLOBIN 8.6 g/dL (12.0-16.0); INR 1.7 (0.8-1.2); LYMPHOCYTES % (AUTO) 5.6 %; MEAN CORPUSCULAR HEMOGLOBIN 32.6 pg (27.0-31.0); MEAN CORPUSCULAR HGB CONC 32.8 g/dL (32.0-36.0); MEAN CORPUSCULAR VOLUME 99.2 fL (81.0-99.0); MEAN PLATELET VOLUME 10.5 fL (7.9-10.8); MONOCYTES % (AUTO) 10.8 %; NEUTROPHILS % (AUTO) 79.2 %; PLT - PLATELET COUNT 84 10^3/uL (130-450); PT - PROTHROMBIN TIME 18.4 secs (9.9-12.6); RED BLOOD COUNT 2.64 10^6/uL (4.20-5.40); RED CELL DISTRIBUTION WIDTH 19.1 % (12.0-15.0); WHITE BLOOD COUNT 21.4 x10^3/uL (4.8-10.8)
[2021-04-11] MEDS: D5NS W/20 MEQ KCL 1,000 ML IV SCH (05:19)
[2021-04-11] MEDS: OCTREOTIDE 500 MCG in SODIUM CHLORIDE 0.9% 100ML 99 ML IV SCH ×2 (05:19→18:28)
[2021-04-11 05:23] LABS: ABNORMAL LYMPHS % (MANUAL) 0 %
[2021-04-11 05:24] LABS: ALBUMIN 1.9 g/dL (3.2-5.5); ALBUMIN/GLOBULIN RATIO 0.7 (1.0-2.2); BILIRUBIN,TOTAL 11.3 mg/dL (0.2-1.0); CALCIUM 7.9 mg/dL (8.5-10.3); CREATININE 1.3 mg/dL (0.4-1.0); POTASSIUM 4.3 mmol/L (3.5-5.0); TOTAL PROTEIN 4.7 g/dL (6.7-8.2)
[2021-04-11 05:32] LABS: CALCIUM, IONIZED 1.09 mmol/L (1.15-1.33); VBG PH 7.371 (7.31-7.41)
[2021-04-11] MEDS: LACTULOSE 10 GM /15 ML UDC PR SCH ×2 (05:36→18:28)
[2021-04-11 05:43] LABS: BAND NEUTROPHILS % (MANUAL) 8 %; DIFFERENTIAL COMMENT MANUAL DIFFERENTIAL; EOSINOPHILS # (MANUAL) 0.2 10^3/uL (0-0.7); LYMPHOCYTES # (MANUAL) 2.6 10^3/uL (1.5-3.5); LYMPHOCYTES % (MANUAL) 12 %; MONOCYTES # (MANUAL) 1.9 10^3/uL (0.0-1.0); NEUTROPHILS # (MANUAL) 16.7 10^3/uL (1.5-6.6); PLATELET ESTIMATE, MANUAL DECREASED (<130,000) (NORMAL); RBC MORPHOLOGY (MULTIPLE) NORMAL APPEARANCE (NORMAL)
[2021-04-11 06:12] LABS: MAGNESIUM 2.1 mg/dL (1.7-2.8); PHOSPHORUS 3.2 mg/dL (2.5-4.6)
[2021-04-11 06:17] LABS: CALCIUM, IONIZED 1.11 mmol/L (1.15-1.33); VBG PH 7.403 (7.31-7.41)
[2021-04-11] MEDS ORDERED: CALCIUM GLUCONATE 1,000 MG in SODIUM CHLORIDE 0.9% 50 ML IV ONE (06:23)
--- NOTE | 2021-04-11 07:47 | PROVIDER PROGRESS NOTE ---
Subjective - Prog Note Date Prog Note Date: 04/11/21 Prog Note Time: 07:45 - Subjective Subjective: Yesterday I had spoken to her primary care provider at [facility]. Explained the situation and that I spoke to [facility]. They did not have an ICU bed for patient Levophed. They have asked me to call today to update them on her status and asked for them to update me on the bed status. Yesterday was also a full day for her and that her family has found out she is here. At work no one in her from her for over 2 days and they became alarmed so they reached out to call her emergency contact. The family then started calling around to see where she was and figured out she was here. She was very clear that she does still did not want me to speak to her mother, her brother RADHA, but reluctantly agreed for me to speak to her brother Jean. Jean is her power of criminal defense attorney. Her nephew Silvio is also power of criminal defense attorney but he is in [place] with his parents. Jean Cooley's phone number is [phone]. I have given her his phone number and asked her to please call him and update them. Her mom has been calling as well and have asked her to please speak to her mother and update her as she sees necessary. Overnight she has been stable on Levophed. There have been no fevers. She is positive for thousand 163 cc on the 13th. She is +4368 cc on the 14th.Her intake is from IV supplementation of calcium, etc., as well as her nor epi, octreotide. She is also getting D5 normal saline at 100 cc an hour. Ports that she has a significant problem with dysphagia. Just trying to get small pills that are crushed in applesauce is difficult for her. She is getting her lactulose via enemas. Current Medications - Current Medications Current Medications: Active Medications Hydromorphone HCl (Hydromorphone 0.5 Mg/0.5 Ml Syringe) 0.5 mg IVP Q6H PRN PRN Reason: Pain 8 to 10 Last Admin: 04/11/21 03:09 Dose: 0.5 mg Documented by: Promethazine HCl 25 mg/ Sodium (Chloride) 51 mls @ 100 mls/hr IV Q6H PRN PRN Reason: Nausea / Vomiting Multivitamins 10 ml/ Thiamine HCl 100 mg/ Folic Acid 1 mg/Sodium Chloride 1,011.2 mls @ 100 mls/hr IV DAILY [facility] Last Infusion: 04/10/21 20:29 Dose: Infused Documented by: Potassium Chloride/Dextrose/Sod Cl (D5ns W/20 Meq Kcl) 1,000 mls @ 100 mls/hr IV .Q10H [facility] Last Admin: 04/11/21 05:19 Dose: 100 mls/hr Documented by: Vancomycin HCl 1 gm/Vancomycin HCl 500 mg/ Sodium Chloride 500 mls @ 250 mls/hr IV Q24H [facility] Last Infusion: 04/10/21 12:55 Dose: Infused Documented by: Norepinephrine Bitartrate 8 mg (/ Dextrose) 250 mls @ 15 mls/hr IV .[id number] [facility]; Protocol Last Admin: 04/10/21 19:21 Dose: 4 mcg/min, 7.5 mls/hr Documented by: Octreotide Acetate 500 mcg/ (Sodium Chloride) 100 mls @ 10 mls/hr IV .Q10H [facility] Last Admin: 04/11/21 05:19 Dose: 50 mcg/hr, 10 mls/hr Documented by: Piperacillin Sod/Tazobactam (Sod 3.375 gm/ Sodium Chloride) 100 mls @ 25 mls/hr IV Q8H [facility] Last Infusion: 04/11/21 07:02 Dose: Infused Documented by: Lactulose (Lactulose 10 Gm /15 Ml Udc) 10 gm NH TID [facility] Last Admin: 04/11/21 05:36 Dose: 10 gm Documented by: Lorazepam (Lorazepam 2 Mg/Ml Vial) 2 mg IVP Q30M PRN; Protocol PRN Reason: CIWA >8 Mineral Oil (Min Oil/Dimethicon/Coconut Oil 92 Gm Tube) 1 applic TOP PRN PRN PRN Reason: Skin Care Ondansetron HCl (Ondansetron 4 Mg/2 Ml Vial) 4 mg IVP Q4HR PRN PRN Reason: Nausea / Vomiting Last Admin: 04/08/21 09:31 Dose: 4 mg Documented by: Pantoprazole Sodium (Pantoprazole 40 Mg Vial) 40 mg IVP BID [facility] Last Admin: 04/10/21 21:05 Dose: 40 mg Documented by: Prochlorperazine Edisylate (Prochlorperazine 10 Mg/2 Ml Vial) 10 mg IVP Q6HR PRN PRN Reason: Nausea / Vomiting Rifaximin (Rifaximin 550 Mg Tablet) 550 mg PO BID [facility] Last Admin: 04/10/21 21:05 Dose: 550 mg Documented by: Sodium Chloride (Sodium Chloride Flush 0.9% 10 Ml Syringe) 10 ml IVP 0100,0900,1700 [facility] Last Admin: 04/11/21 00:59 Dose: 10 ml Documented by: Sodium Chloride (Sodium Chloride Flush 0.9% 10 Ml Syringe) 10 ml IVP PRN PRN PRN Reason: NEEDED PER PROVIDER ORDERS Last Admin: 04/09/21 05:43 Dose: 20 ml Documented by: Zinc Oxide (Cod Liver Oil/Zinc Oxide 113 Gm Tube) 113 gm TOP PRN PRN PRN Reason: Skin Care Last Admin: 04/10/21 11:10 Dose: 1 applic Documented by: No Known Home Medications 04/08/21 Objective - Vital Signs/Intake & Output Reviewed Vital Signs: Yes Vital Signs: Vital Signs Temp Pulse Resp BP Pulse Ox 04/11/21 07:00 86 21 106/58 L 95 04/11/21 06:00 86 19 104/63 94 04/11/21 05:00 90 20 101/61 95 04/11/21 04:00 89 22 111/58 L 93 04/11/21 03:53 36.6 C Intake & Output: Intake & Output 04/08/21 04/09/21 04/10/21 04/11/21 23:59 23:59 23:59 23:59 Intake Total 6390.899 3757.166 5026.233 1193 Output Total 690 379 658 235 Balance 386.477 4500.166 4368.233 958 - Objective General Appearance: positive: No acute distress, Lethargic Eyes Bilateral: positive: PERRL, EOMI ENT: positive: No signs of dehydration Neck: positive: No JVD, Trachea midline. negative: Stiff neck Respiratory: positive: Chest non-tender, No respiratory distress, Other (slow, shallow, unlabored.) Cardiovascular: positive: Regular rate & rhythm, Systolic murmur. negative: Gallop/S4, Friction rub Abdomen: positive: Other (hypoactive bowels sounds, mild generalized tenderness, fluid wave, distended but not tight) Skin: positive: Warm, Dry, Other (jaundice improved even though serum numbers have not) Extremities: positive: Full ROM, Pedal edema Neurologic/Psychiatric: positive: CN's nml (2-12), Disoriented to time, Slurred/abnml speech, Depressed mood/affect (very flat, almost nonreactive. Occ grimaces when has to deal w bad news like "your mom is calling and wants to speak to you). negative: Motor nml (moderate psychomotor slowing about the same from yesterday (which is when I re-examined) but improved from admission status) - Lab Results Fish Bones: 04/11/21 04:55 04/11/21 04:55 Other Labs: Lab Results x24hrs 04/11/21 04/11/21 04/11/21 Range/Units 05:52 04:55 04:55 WBC (4.8-10.8) x10^3/uL RBC (4.20-5.40) 10^6/uL Hgb (12.0-16.0) g/dL Hct (37.0-47.0) % MCV (81.0-99.0) fL MCH (27.0-31.0) pg MCHC (32.0-36.0) g/dL RDW (12.0-15.0) % Plt Count (130-450) 10^3/uL MPV (7.9-10.8) fL Neut # (Auto) Lymph # (Auto) Gray # (Auto) Eos # (Auto) Baso # (Auto) Absolute Nucleated RBC Total Counted Band Neuts % (Manual) (0 - 10) % Abnorm Lymph % (Manual) % Nucleated RBC % Neutrophils # (Manual) (1.5-6.6) 10^3/uL Lymphocytes # (Manual) (1.5-3.5) 10^3/uL Monocytes # (Manual) (0.0-1.0) 10^3/uL Eosinophils # (Manual) (0-0.7) 10^3/uL Basophils # (Manual) (0-0.1) 10^3/uL Differential Comment Platelet Estimate (NORMAL) RBC Morph Micro Appear (NORMAL) Haptoglobin (43-212) mg/dL PT 18.4 H (9.9-12.6) secs INR 1.7 H (0.8-1.2) VBG pH 7.403 (7.31-7.41) Ionized Calcium 1.11 L (1.15-1.33) mmol/L Sodium (135-145) mmol/L Potassium (3.5-5.0) mmol/L Chloride (101-111) mmol/L Carbon Dioxide (21-32) mmol/L Anion Gap (6-13) BUN (6-20) mg/dL Creatinine (0.4-1.0) mg/dL Estimated GFR (MDRD) (>89) Glucose (70-100) mg/dL Calcium (8.5-10.3) mg/dL Phosphorus 3.2 (2.5-4.6) mg/dL Magnesium 2.1 (1.7-2.8) mg/dL Total Bilirubin (0.2-1.0) mg/dL AST (10-42) IU/L ALT (10-60) IU/L Alkaline Phosphatase (42-121) IU/L Ammonia (7-35) umol/L Total Protein (6.7-8.2) g/dL Albumin (3.2-5.5) g/dL Globulin (2.1-4.2) g/dL Albumin/Globulin Ratio (1.0-2.2) Ceruloplasmin (18-53) mg/dL Last Dose Date Last Dose Time Vancomycin Trough (10.0-20.0) ug/mL 04/11/21 04/11/21 04/11/21 Range/Units 04:55 04:55 04:55 WBC 21.4 H (4.8-10.8) x10^3/uL RBC 2.64 L (4.20-5.40) 10^6/uL Hgb 8.6 L (12.0-16.0) g/dL Hct 26.2 L (37.0-47.0) % MCV 99.2 H (81.0-99.0) fL MCH 32.6 H (27.0-31.0) pg MCHC 32.8 (32.0-36.0) g/dL RDW 19.1 H (12.0-15.0) % Plt Count 84 L (130-450) 10^3/uL MPV 10.5 (7.9-10.8) fL Neut # (Auto) Not Reportable Lymph # (Auto) Not Reportable Gray # (Auto) Not Reportable Eos # (Auto) Not Reportable Baso # (Auto) Not Reportable Absolute Nucleated RBC Not Reportable Total Counted 100 Band Neuts % (Manual) 8 (0 - 10) % Abnorm Lymph % (Manual) 0 % Nucleated RBC % Not Reportable Neutrophils # (Manual) 16.7 H (1.5-6.6) 10^3/uL Lymphocytes # (Manual) 2.6 (1.5-3.5) 10^3/uL Monocytes # (Manual) 1.9 H (0.0-1.0) 10^3/uL Eosinophils # (Manual) 0.2 (0-0.7) 10^3/uL Basophils # (Manual) 0.0 (0-0.1) 10^3/uL Differential Comment MANUAL DIFFERENTIAL Platelet Estimate DECREASED (<130,000) (NORMAL) RBC Morph Micro Appear NORMAL APPEARANCE (NORMAL) Haptoglobin (43-212) mg/dL PT (9.9-12.6) secs INR (0.8-1.2) VBG pH 7.371 (7.31-7.41) Ionized Calcium 1.09 L (1.15-1.33) mmol/L Sodium 128 L (135-145) mmol/L Potassium 4.3 (3.5-5.0) mmol/L Chloride 98 L (101-111) mmol/L Carbon Dioxide 20 L (21-32) mmol/L Anion Gap 10.0 (6-13) BUN 30 H (6-20) mg/dL Creatinine 1.3 H (0.4-1.0) mg/dL Estimated GFR (MDRD) 42 L (>89) Glucose 141 H (70-100) mg/dL Calcium 7.9 L (8.5-10.3) mg/dL Phosphorus (2.5-4.6) mg/dL Magnesium (1.7-2.8) mg/dL Total Bilirubin 11.3 H (0.2-1.0) mg/dL AST 82 H (10-42) IU/L ALT 36 (10-60) IU/L Alkaline Phosphatase 156 H (42-121) IU/L Ammonia (7-35) umol/L Total Protein 4.7 L (6.7-8.2) g/dL Albumin 1.9 L (3.2-5.5) g/dL Globulin 2.8 (2.1-4.2) g/dL Albumin/Globulin Ratio 0.7 L (1.0-2.2) Ceruloplasmin (18-53) mg/dL Last Dose Date Last Dose Time Vancomycin Trough (10.0-20.0) ug/mL 04/11/21 04/10/21 04/06/21 Range/Units 04:55 08:59 14:46 WBC (4.8-10.8) x10^3/uL RBC (4.20-5.40) 10^6/uL Hgb (12.0-16.0) g/dL Hct (37.0-47.0) % MCV (81.0-99.0) fL MCH (27.0-31.0) pg MCHC (32.0-36.0) g/dL RDW (12.0-15.0) % Plt Count (130-450) 10^3/uL MPV (7.9-10.8) fL Neut # (Auto) Lymph # (Auto) Gray # (Auto) Eos # (Auto) Baso # (Auto) Absolute Nucleated RBC Total Counted Band Neuts % (Manual) (0 - 10) % Abnorm Lymph % (Manual) % Nucleated RBC % Neutrophils # (Manual) (1.5-6.6) 10^3/uL Lymphocytes # (Manual) (1.5-3.5) 10^3/uL Monocytes # (Manual) (0.0-1.0) 10^3/uL Eosinophils # (Manual) (0-0.7) 10^3/uL Basophils # (Manual) (0-0.1) 10^3/uL Differential Comment Platelet Estimate (NORMAL) RBC Morph Micro Appear (NORMAL) Haptoglobin 87 (43-212) mg/dL PT (9.9-12.6) secs INR (0.8-1.2) VBG pH (7.31-7.41) Ionized Calcium (1.15-1.33) mmol/L Sodium (135-145) mmol/L Potassium (3.5-5.0) mmol/L Chloride (101-111) mmol/L Carbon Dioxide (21-32) mmol/L Anion Gap (6-13) BUN (6-20) mg/dL Creatinine (0.4-1.0) mg/dL Estimated GFR (MDRD) (>89) Glucose (70-100) mg/dL Calcium (8.5-10.3) mg/dL Phosphorus (2.5-4.6) mg/dL Magnesium (1.7-2.8) mg/dL Total Bilirubin (0.2-1.0) mg/dL AST (10-42) IU/L ALT (10-60) IU/L Alkaline Phosphatase (42-121) IU/L Ammonia 64.9 H (7-35) umol/L Total Protein (6.7-8.2) g/dL Albumin (3.2-5.5) g/dL Globulin (2.1-4.2) g/dL Albumin/Globulin Ratio (1.0-2.2) Ceruloplasmin (18-53) mg/dL Last Dose Date Not Reportable Last Dose Time Not Reportable Vancomycin Trough 18.9 (10.0-20.0) ug/mL 04/06/21 Range/Units 07:13 WBC (4.8-10.8) x10^3/uL RBC (4.20-5.40) 10^6/uL Hgb (12.0-16.0) g/dL Hct (37.0-47.0) % MCV (81.0-99.0) fL MCH (27.0-31.0) pg MCHC (32.0-36.0) g/dL RDW (12.0-15.0) % Plt Count (130-450) 10^3/uL MPV (7.9-10.8) fL Neut # (Auto) Lymph # (Auto) Gray # (Auto) Eos # (Auto) Baso # (Auto) Absolute Nucleated RBC Total Counted Band Neuts % (Manual) (0 - 10) % Abnorm Lymph % (Manual) % Nucleated RBC % Neutrophils # (Manual) (1.5-6.6) 10^3/uL Lymphocytes # (Manual) (1.5-3.5) 10^3/uL Monocytes # (Manual) (0.0-1.0) 10^3/uL Eosinophils # (Manual) (0-0.7) 10^3/uL Basophils # (Manual) (0-0.1) 10^3/uL Differential Comment Platelet Estimate (NORMAL) RBC Morph Micro Appear (NORMAL) Haptoglobin (43-212) mg/dL PT (9.9-12.6) secs INR (0.8-1.2) VBG pH (7.31-7.41) Ionized Calcium (1.15-1.33) mmol/L Sodium (135-145) mmol/L Potassium (3.5-5.0) mmol/L Chloride (101-111) mmol/L Carbon Dioxide (21-32) mmol/L Anion Gap (6-13) BUN (6-20) mg/dL Creatinine (0.4-1.0) mg/dL Estimated GFR (MDRD) (>89) Glucose (70-100) mg/dL Calcium (8.5-10.3) mg/dL Phosphorus (2.5-4.6) mg/dL Magnesium (1.7-2.8) mg/dL Total Bilirubin (0.2-1.0) mg/dL AST (10-42) IU/L ALT (10-60) IU/L Alkaline Phosphatase (42-121) IU/L Ammonia (7-35) umol/L Total Protein (6.7-8.2) g/dL Albumin (3.2-5.5) g/dL Globulin (2.1-4.2) g/dL Albumin/Globulin Ratio (1.0-2.2) Ceruloplasmin 24 (18-53) mg/dL Last Dose Date Last Dose Time Vancomycin Trough (10.0-20.0) ug/mL Assessment/Plan - Problem List (1) Hypotension Impression: She has been hypotensive to the 80s and 90s since admission. Treatment has been attempted using midodrine and albumin but she developed nausea and vomiting with that. She was transfused for coffee-ground emesis and acute anemia and has received 4 units total and still hypotensive. We have been worried about infection since her white cell count was elevated but her lactic acid is normal. We also looked at her echocardiogram to make sure her left ventricle was supporting her hemodynamically and LV EF is normal. Echocardiogram is essentially normal with a slight hyperdynamic ventricle She is not having an OH. We started her on Levophed to maintain her blood pressure and she has been on it for 2 days. Nursing reports that there is a distinct difference in her mentation when she is on Levophed as opposed to off. She is more alert, more aware. Plan: Continue Levophed, octreotide, blood transfusions as needed, antibiotics that are empiric.Today is day #3, Zosyn, started 04/09. I did recheck to interventional radiology yesterday but they feel that the patient's INR, in spite of vitamin K, is too prohibitively high for them to safely do a diagnostic or therapeutic paracentesis. General surgery has also declined to do EGD to verify varices since they feel she is too high risk for them and we are [facility] I continued to reach out to [facility]. They still have her on their list and we have re-discussed her vitals. On levophed. We have pushed films yesterday. She is also on the list at [place]. Previous note from [facility]: I reached out to [facility] for transfer and they had no beds yesterday, she would be in a queue. I called [place] and there were no beds but I spoke with GI who heard the entire case. The GI recommended iv Albumen and to have IR do paracentesis to check for SBP and then start antibiotics, and get Echo to evaluate for alcoholic cardiomyopathy and to eventually do endoscopy. I informed them that with an INR of 1.9 our general surgeons do not feel comfortable doing endoscopies here, especially if she may have esophageal varices. I have reached out to [facility] and she is in a queue, they have no open beds. (2) Gram-positive bacteremia Assessment/Plan: WBC elevated on admission at 26.5. Cause was not readily apparent at admission, since she was afebrile. 1 of 2 blood cultures done at admission is growing GPC In the anaerobic bottle. Specimen sent to outside lab for identification. PCR unable to identify. She has been started on IV Vanco empirically on 04/07 Started on Zosyn 04/09 (3) Nausea & vomiting Assessment/Plan: Vomiting has stopped but she still has nausea. Doesn't want to eat. This could be from gastritis or from many new medications started this hospitalization since she was on no prescription meds before this or from an acute GI bleed. Continue with antiemetics as needed, trying to avoid those that are liver metabolized (4) UGI bleed Assessment/Plan: Coffee-ground emesis started 04/07. None since 04/09. On IV Protonix twice daily. She is rifaximin. Steroids were stopped Her essential po meds were changed to iv formulations Her regular diet has been stopped, she is n.p.o. except ice chips. She requests sawyer shireen which will be okay'd EGD is hign risk if done here at a critical [facility], our Gen Surgeons are not comfortable with this. We have reached out to have her accepted at a higher level of care hospital that have a Paper Spooler and GI specialists. Patient was told of this plan 04/08 and she agrees. Recommendations per [facility] being followed. Plan: Follow H/H Q 8-12 hours and transfuse if Hgb under 7. PT was originally ordered for evaluation, but then she had findings of bacteremia and then next day had coffee-ground emesis, thus no PT has started yet (5) Alcoholic hepatitis with ascites superimposed on cirrhosis Assessment/Plan: She has a more distended abdomen with probably more ascites since admission and worsened leg edema since admission The etiology of her LFT abn is most likely related to Alcohol. -AST 129/ALT 44 > 2:1, and GGT is elevated 63 and there were bottles of alcohol found at her home, even though she denies ETOH use. Her Meld score is 31 points. (Estimated mortality 52.6% in 3 months). Her Discriminant factor is 55.2 and she was given steroids. - Acute hepatitis panel-are all neg - Alpha-fetoprotein pending and her anti-Lane antibodies, anti-Ro antibodies, ceruloplasmin, EMPERATRIZ are negative - Alpha1 antitryp not available - Abdominal Ultrasound 04/06: Gallbladder prominent distention w/ lobulated intraluminal filling defet 7.7 x 3.1 x 4.1; suspicious of biliary sludge. GBW thickening up to 0.7cm No IHDD + EHDD. Extrahepatic bile duct caliber up to 0.7 cm. Normal 6-7 mgg or less or 10 mm post choley. Moderate ascites Nodular cirrhotic liver without discrete mass. Distention of gallbladder w/ gallbladder wall thickening; no specific in context of ascites and liver disease. Cannot r/o cholecystitis/ clinical correlation recommended - PCP office at [facility], Dr Milli Comer was contacted 04/06; Dr Comer out of office til 04/10/21, with records sent by our [place] to Office [phone]. Patient last seen in 2019 and PMH notable only for B12 deficiency, bunions, "left ankle pain" and nocturia I left message for her to call me 04/10 and she referred me to the transfer center. She is now on the list there as well. Plan is to have her transferred to a higher level of care hospital that has hepatology and GI specialists. Supplement w liquid vitamins Get speech eval to see why difficult to swallow Stop IVF supplements today (D5NS) Her POA, brother Jean, was updated at [phone] (6) Coagulopathy Assessment/Plan: Her INR was 1.9 on admission, 1.7 yesterday, consistent with liver dysfunction and synthesis problems. We will follow INR Will give Vitamin K for elevated INR, in order to proceded with US guided paracentesis. This was discussed with Dr Hernandez in DI 04/09. I have left a message w Claudia today asking when we would expect the paracentesis to be done. (7) Alcohol abuse Assessment/Plan: On admission pt had flat affect and slow speech. After that she has become more alert, but is lethargic. Still with flat affect. Patient denied alcohol use or abuse to the admitting doctor. Her blood alc level was zero at admission but she had been on the ground for unknown period of time, not able to drink. AST 129, ALT 44, and GGT was 63. CIWA score 4. Labs show an elevated GGT and this pattern of LFTs is consistent with alcohol abuse. She was started on IV banana bag since she was npo but she is getting too much fluids. Lactulose and Rifaximin started for encephalopathy resume liquids vitamins instead of IV (8) Anemia Qualifiers: Anemia type: unspecified type Qualified Code(s): D64.9 - Anemia, u nspecified Assessment/Plan: At admission she received 2 units PRBCs, hemoglobin improved. 04/09 Hgb again down to 6.9. She then started to have coffee-ground emesis and with the CT report of distal esophageal thickening, she may have bleeding esophageal varices. She is not a candidate for endoscopy here at this critical access hospital with no GI specialist. She was transfused 1U PRBCs transfused 04/09. Blood bank report states this is #4. Continue to monitor her hemoglobin q 8- 12 hours, transfuse if Hgb <7 today she was 9.5>>8.6 (9) Acute kidney injury Assessment/Plan: She had evidence of HEATHER from ATN, volume depletion and hypotension on admission. Her highest creat was 1.8. she is 1.3 today. Plan: Continue with IV fluids since her diet is now n.p.o. because of nausea and vomiting and coffee-ground emesis. Avoid nephrotoxins. Follow BMP daily (10) Hyponatremia 128-130 Assessment/Plan: This is consistent with her alcohol abuse diagnosis. She is on D5NS. Plan: Stop the D5NS to avoid fluid overload Follow BMP daily (11) Hypokalemia resolved since 04/08 Assessment/Plan: Likely caused by poor p.o. intake in an alcoholic. Replace with K riders not orally. Follow BMP daily (12) Fall Qualifiers: Encounter type: subsequent encounter Qualified Code(s): W19.XXXD - Unspecified fall, subsequent encounter Assessment/Plan: She was too weak to stand up after falling in her residence, likley from deconditioning and the hypotension. Her serum CK was minimally elevated.
[2021-04-11] MEDS: rifAXIMin 550 MG TABLET PO SCH (09:42)
[2021-04-11] MEDS: PANTOPRAZOLE 40 MG VIAL IVP SCH (09:42)
[2021-04-11] MEDS: VANCOMYCIN INJ 1 GM, VANCOMYCIN INJ 500 MG in SODIUM CHLORIDE 0.9% 500 ML IV SCH (09:57)
[2021-04-11] MEDS: MULTIVITAMIN 10 ML, THIAMINE INJ 100 MG, FOLIC ACID INJ 1 MG in SODIUM CHLORIDE 0.9% 1,... IV SCH (10:53)
--- NOTE | 2021-04-11 14:16 | Discharge Plan ---
Discharge Plan Problem Reviewed?: Yes Disposition: 02 Transfer Acute Care Hosp Condition: Serious Activity Restrictions: Activity as Tolerated No Smoking: If you smoke, Please STOP! Call for help.
--- NOTE | 2021-04-11 14:18 | DISCHARGE SUMMARY ---
Discharge Summary Admit Date: 04/05/21 Discharge Date: 04/11/21 Discharging Provider: Leida Yang MD Primary Care Provider: Milli Comer MD [phone], (fax) Code Status: Attempt Resuscitation Condition at Discharge: Serious Discharge Disposition: 02 Transfer Acute Care Hosp Dis[facility] - DIAGNOSES Discharge Diagnoses with Status of Each Condition: 1. Alcoholic liver failure 2. Hypotension 3. Gram-positive bacteremia, possible contamination 4. Hematemesis/upper GI bleed 5. Acute blood loss anemia 6. Alcoholic hepatitis with ascites 7. Coagulopathy 8. Acute kidney injury 9. Hyponatremia 10. Hypokalemia 11. History of falls at home 12. Hepatic encephalopathy - HPI History of Present Illness: 61-year-old female who was brought in by ambulance because she was found down in her driveway by her direct of real estate. The patient tells me that she does not have any major medical illnesses. She does not have high blood pressure, diabetes, lung disease or kidney disease. She states that she only drinks 2 drinks a day and stopped drinking about 2 months ago because "she wanted to get healthy". She has no history of alcoholic liver disease, withdrawal, neuropathy, or ataxia. She firmly states that she was in her normal state of health. Feeling good. No antecedent illness. No changes in appetite. She was in her yard but cannot remember why she was there and tripped and fell in the pea gravel. There was no loss of consciousness. She could not get up. When I asked her what prohibited her from getting up she says "I do not know". She lay there until her direct of real estate found her. EMS was called. EMS describes the house as full of empty alcohol bottles everywhere. Birds are living in the house and there is bird feces everywhere. There is human feces on the floor. There is rotting food all over the house. The patient states that she is just really preoccupied with work. 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 She used to live in [place] in [place] and left [place] when all of the protestors and homeless became unsafe. She moved to [facility] "a couple of months ago" but recently bought a condo to go back and forth between here and [place]. On review of systems she denies headache, change in vision. Denies cough, chest pain, shortness of breath. Denies edema. Denies changes in habit. Denies bloody emesis, black emesis. She denies change in bowel habits, denies hematochezia or bloody stool. She denies any weight changes. She denies urgency, frequency, hematuria. She denies any chronic pain syndrome. Denies arthritis. She has no skin skin lesions that are new. She denies polyuria, polydipsia, polyphagia. She is not depressed, denies suicidal ideation or hallucinations. She has no history of seizures, syncope, memory loss. All of this is a mystery to her and she doesn't understand how this could be happening since "I was healthy without any problems" up until today. In the emergency room temperature was 36.6. Heart rate 89. Blood pressure 91/51. Respirations 14 and 100% on room air. She had psychomotor slowing. Did not know the date. Poor historian. Did not smell of alcohol. Nontender abdomen but distended with positive fluid wave. Rectal exam had dark stool but was not melanotic. Fecal occult blood positive. Bruises over her body and including the knees, back, sacrum, abdominal wall. 2+ pitting edema both extremities. Nontender bruising over the anterior part of both knees. Sodium 128. Potassium 3.1. BUN 29, creatinine 1.6. Total bili 11.5. AST 163. ALT 44. Alk phos 212. INR 1.9. Ammonia 45.2. White cell count 26.5. Hemoglobin 6.7. Platelets 134. - Past Medical History Cardiovascular: reports: None Respiratory: reports: Pneumonia Neuro: reports: None Endocrine/Autoimmune: reports: None GI: reports: Hepatitis (she doesn't remember at this time), Cirrhosis, Other BRICKLAYER SEWER: reports: Other () : reports: None HEENT: reports: None Psych: reports: None Musculoskeletal: reports: None Derm: reports: Other MRSA Hx?: No Other Past Medical History: glasses at home - Past Surgical History General: reports: Colonoscopy Ortho: reports: Arthroscopic surgery (of knee) - CONSULTS | PROCEDURES Procedures: Head CT without significant intracranial abnormality Cervical spine CT negative for C-spine fracture. Focal lower cervical spine degenerative changes are seen. Abdomen pelvis CT with small right-sided pleural effusion. Mild to moderate hiatal hernia. Patchy low density within the liver attributed to fatty infiltration. No focal liver lesions. Gallbladder prominent without pathology. Biliary system nondilated. Pancreas enhances normally. Bowel loops normal. Diverticulosis seen without active diverticulitis. Small umbilical hernia with fluid. Generalized body wall edema is seen. Chest CT with small right-sided pleural effusion. Normal heart size. Distal esophagus is thickened and irregular with small to moderate hiatal hernia. Liver demonstrates an irregular, low-density appearance. Moderate ascites. Abdominal ultrasound was done to evaluate and she has a lobulated intraluminal filling defect measuring 7.7 x 3.1 x 4.1 cm filling of the gallbladder that is compatible with sludge. No stones. Nondilated intrahepatic ducts. Pancreas normal. Spleen normal. Moderate ascites. Paracentesis requested. The procedure is technically feasible and recommended given the volume of ascites, however the patient's INR is elevated which increases the risk of bleeding as a procedural complication. Chest x-ray with right IJ central venous line. Catheter tip in the right atrium. Mild right lung airspace disease. Echocardiogram with overall left ventricular systolic function that is normal. EF 70 to 75%. Grade 1 diastolic dysfunction. Right ventricle normal. No hemodynamically significant cardiac valve disease. Fecal occult blood negative. Blood culture #2+ right forearm with gram-positive cocci in clusters. PCR was unable to identify and it was sent for outside identification to an outside lab. - HOSPITAL COURSE Hospital Course: She has been hypotensive to the 80s and 90s since admission. Treatment has been attempted using midodrine and albumin but she developed nausea and vomiting with that. She was transfused for coffee-ground emesis and acute anemia and has received 4 units total and still hypotensive. We have been worried about infection since her white cell count was elevated but her lactic acid is normal. We also looked at her echocardiogram to make sure her left ventricle was supporting her hemodynamically and LV EF is normal. Echocardiogram is essentially normal with a slight hyperdynamic ventricle She is not having an CT. We started her on Levophed to maintain her blood pressure and she has been on it for 2 days. Nursing reports that there is a distinct difference in her mentation when she is on Levophed as opposed to off. She is more alert, more aware. We continued Levophed, octreotide, blood transfusions as needed, antibiotics that are empiric. I did recheck to interventional radiology yesterday but they feel that the patient's INR, in spite of vitamin K, is too prohibitively high for them to safely do a diagnostic or therapeutic paracentesis. General surgery has also declined to do EGD to verify varices since they feel she is too high risk for them and we are [facility] WBC elevated on admission at 26.5. Cause was not readily apparent at admission, since she was afebrile. 1 of 2 blood cultures done at admission is growing GPC In the anaerobic bottle. Specimen sent to outside lab for identification. PCR unable to identify. She has been started on IV Vanco empirically on 04/07 and started on Zosyn 04/09. Coffee ground emesis started 04/07. Vomiting has stopped by 04/09 but she still has nausea. Doesn't want to eat. She has pain up and down her esophagus and even sitting up from laying down hurts her. She cannot tolerate more than ice chips or crushed meds with apple sauce. This could be from esophagitis/gastritis or from many new medications started this hospitalization since she was on no prescription meds before this or from an acute GI bleed. Continued with antiemetics as needed. No black stool during this stay. On IV Protonix twice daily. She is rifaximin. Steroids were started for a high MELD and discriminant score but stopped due to possible gastritis and nausea. Her essential po meds were changed to iv formulations. Her regular diet has been stopped, she is n.p.o. except ice chips. She requests sawyer shireen which will be okay'd EGD is hign risk if done here at a [facility], our Gen Surgeons are not comfortable with this. As for her alcoholic hepatitis with ascites, she has a more distended abdomen with probably more ascites since admission and worsened leg edema since admission. The etiology of her LFT abn is most likely related to Alcohol but she denies this. -AST 129/ALT 44 > 2:1, and GGT is elevated 63 and there were bottles of alcohol found at her home, even though she denies ETOH use. Her Meld score is 31 points. (Estimated mortality 52.6% in 3 months). Her Discriminant factor is 55.2 and she was given steroids until emesis began. - Acute hepatitis panel-are all neg - Alpha-fetoprotein pending and her anti-Lane antibodies, anti-Ro antibodies, ceruloplasmin, EMPERATRIZ are negative - Alpha1 antitryp not available - Abdominal Ultrasound 04/06: Gallbladder prominent distention w/ lobulated intraluminal filling defet 7.7 x 3.1 x 4.1; suspicious of biliary sludge. GBW thickening up to 0.7cm No IHDD + EHDD. Extrahepatic bile duct caliber up to 0.7 cm. Normal 6-7 mgg or less or 10 mm post choley. Moderate ascites Nodular cirrhotic liver without discrete mass. Distention of gallbladder w/ gallbladder wall thickening; no specific in context of ascites and liver disease. Cannot r/o cholecystitis/ clinical correlation recommended - PCP office at [facility], Dr Milli Comer was contacted 04/06; Dr Comer out of office til 04/10/21, with records sent by our FINANCIAL ACCOUNTANT to Office [phone]. Patient last seen in 2019 and PMH notable only for B12 deficiency, bunions, "left ankle pain" and nocturia Due to her ascites and edema worsening, I have stopped IVF today and plan to switch over to oral liquid thiamine , multivitamin. Her INR was 1.9 on admission, 1.7 last two days. Consistent with liver dysfunction and synthesis problems. We gave Vitamin K for elevated INR, in order to proceded with US guided paracentesis but radiology declined due to the high risk. At admission she received 2 units PRBCs, hemoglobin improved. 04/09 Hgb again down to 6.9. She then started to have coffee-ground emesis and with the CT report of distal esophageal thickening, she may have bleeding esophageal varices. She is not a candidate for endoscopy here at this critical access hospital with no GI specialist. She was transfused 1U PRBCs transfused 04/09. Blood bank report states this is #4. Continue to monitor her hemoglobin q 8- 12 hours, transfuse if Hgb <7 today she was 9.5>>8.6 She had evidence of HEATHER from ATN, volume depletion and hypotension on admission. Her highest creat was 1.8. she is 1.3 today. Hyponatremia 128-130. This is consistent with her alcohol abuse diagnosis. She is on D5NS. That was stopped today . Hypokalemia has resolved with supplementation. She was too weak to stand up after falling in her residence, likley from deconditioning and the hypotension. Her serum CK was minimally elevated. She most likely will need agressive PT to get her out of the hospital with push for nutrition. Entire stay, she refused to have us contact anybody in her life including her po wer of commercial litigation attorney's. Her brother Pedro Cooley's power of commercial litigation attorney and her nephew Silvio is also power of commercial litigation attorney. It was not until April 10 that the family contacted us. 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 She had not called work for a while and work reach out to her family through the emergency contact number. They started calling around and [place] hospital. Her brother RADHA showed up at the hospital to try and speak to her and she did not want to speak to him. Her mom called and she did not want to speak to her mother. She did allow me to speak to her POA Pedro Cooley at [phone]. I have updated him on her condition. I have been in the room and offered to call her brother to that she could speak to him on the phone and she has declined at this time. At discharge temperature is 36.6. Heart rate is 91. Blood pressure 98/64. Respirations 15. She is 96% saturated on 2 L. She has a central line in her right IJ. She has a severe flat affect. Will respond to direct questioning but avoids gaze. Psychomotor slowing. However she is much more improved in alertness today than she was when she was admitted. Sclera was very muddy on admission and much improved. Jaundice was present on admission. And even though bilirubin has not changed much, she is much improved with that. Neck is supple, shotty adenopathy, no JVD. Slow shallow unlabored respirations with diminished breath sounds at the bases but clear. Regular rate and rhythm with a murmur. The abdomen is distended with fluid and the fluid wave is palpable. Mild generalized tenderness. Hypoactive bowel sounds. Extremities are developing edema from the sacrum down to her legs. Oriented to person and place, vague on the date. Following 1-2 step commands. No asterixis, no tremulousness, no diaphoresis. Greater than 30 minutes was spent coordinating discharge. - ALLERGIES Allergies/Adverse Reactions: Allergies Allergy/AdvReac Type Severity Reaction Status Date / Time No Known Drug Allergies Allergy Verified 04/05/21 15:29 - MEDICATIONS Home Medications: Ambulatory Orders Medication Instructions Recorded Confirmed No Known Home Medications 04/08/21 04/08/21 - LABS Result Diagrams: 04/11/21 04:55 04/11/21 04:55
[2021-04-11 18:22] LABS: B. PARAPERTUSSIS- RESP PCR PAN NOT DETECTED; B. PERTUSSIS- RESP PCR PANEL NOT DETECTED; C. PNEUMONIAE- RESP PCR PANEL NOT DETECTED; CORONAVIRUS 229E-RESP PCR NOT DETECTED; CORONAVIRUS HKU1-RESP PCR NOT DETECTED; CORONAVIRUS NL63-RESP PCR NOT DETECTED; CORONAVIRUS OC43-RESP PCR NOT DETECTED; HUMAN METAPNEUMOVIRUS NOT DETECTED; INFLUENZA A- RESP PCR PANEL NOT DETECTED; INFLUENZA B - RESP PCR PANEL NOT DETECTED; M. PNEUMONIAE- RESP PCR PANEL NOT DETECTED; PARAINFLUENZA VIRUS 1 NOT DETECTED; PARAINFLUENZA VIRUS 2 NOT DETECTED; PARAINFLUENZA VIRUS 3 NOT DETECTED; PARAINFLUENZA VIRUS 4 NOT DETECTED; RHINOVIRUS/ENTEROVIRUS NOT DETECTED; RSV- RESP PCR PANEL NOT DETECTED; SARS-CoV-2 -RESP PCR PANEL NOT DETECTED
[2021-04-11] MEDS: COD LIVER OIL/ZINC OXIDE 113 GM TUBE TOP PRN (18:27)
[2021-04-11 19:29] VITALS: BP 104/63
== END 2021-04-11 19:39 | disposition short-term general hospital (02) | DRG 432 ==
LOC: ED 15:12 → MS2 18:18 → ICU 04-08 16:40
PROVIDERS: ADMIT Specialist; ATTEND Specialist
PROC: 02HV33Z Insertion of Infusion Device into Superior Vena Cava, Percutaneous Approach (ICD-10-PCS; 2021-04-08)
PROC: 30243N1 Transfusion of Nonautologous Red Blood Cells into Central Vein, Percutaneous Approach (ICD-10-PCS; principal; 2021-04-09)
DX: K70.40 Alcoholic hepatic failure without coma (principal); N17.0 Acute kidney failure with tubular necrosis; I85.11 Secondary esophageal varices with bleeding; K20.91 Esophagitis, unspecified with bleeding; D68.4 Acquired coagulation factor deficiency; R78.81 Bacteremia; D62 Acute posthemorrhagic anemia; E87.1 Hypo-osmolality and hyponatremia; F10.10 Alcohol abuse, uncomplicated; K70.11 Alcoholic hepatitis with ascites; K70.31 Alcoholic cirrhosis of liver with ascites; D64.9 Anemia, unspecified; I95.9 Hypotension, unspecified; I51.89 Other ill-defined heart diseases; K44.9 Diaphragmatic hernia without obstruction or gangrene; Z87.01 Personal history of pneumonia (recurrent); E87.6 Hypokalemia; K82.8 Other specified diseases of gallbladder; E86.1 Hypovolemia; R13.10 Dysphagia, unspecified; R11.2 Nausea with vomiting, unspecified; T50.915A Adverse effect of multiple unspecified drugs, medicaments and biological substances, initial encounter; Y92.230 Patient room in hospital as the place of occurrence of the external cause; Z20.822 Contact with and (suspected) exposure to COVID-19; Z91.81 History of falling
CPT/HCPCS: 0202U; 36415; 70450; 71045; 71260; 72125; 74177; 76700; 80048; 80053; 80074; 80202; 80306; 80320; 81001; 81599; 82140; 82248; 82272; 82330; 82390; 82550; 82607; 82728; 82746; 82977; 83010; 83516; 83540; 83605; 83615; 83690; 83735; 84100; 84132; 84295; 84300; 84466; 84484; 85014; 85018; 85025; 85045; 85610; 86038; 86376; 86850; 86900; 86901; 86920; 87040; 87150; 92610; 93306; 96365; 96367; 99285; 99291; A9270; J1170; J3370; J3411; J7040; J7510; J8499; P9016; P9047; Q9967; 81003; 87086